=== PATIENT | female | born 1945 | race Caucasian/White ===

== ENCOUNTER → 2023-07-14 06:54 | Outpatient (REF) | payer MEDICARE, OTHER, SELFPAY | LOC: MRI 3T 06:54 | PROVIDERS: ATTENDING PHYSICIAN Orthopaedic Surgery; FAMILY PHYSICIAN Family Medicine | DX: M25.562 Pain in left knee (principal) | CPT/HCPCS: 73721 ==

== ENCOUNTER 2023-09-25 02:51 | Emergency (ER) | payer MEDICARE, OTHER, SELFPAY ==
[2023-09-25 02:59] VITALS: BP 135/87
[2023-09-25] MEDS: OMNIPAQUE 50 ML PO (03:50)
[2023-09-25 03:51] LABS: % Basophils 0.3 % (0-2); % Eosinophils 0.5 % (0-6); % Immature Granulocytes 0.3 % (0-0.5); % Lymphocytes 16.4 % (20.5-51.1); % Monocytes 5.9 % (1.7-9.3); % Neutrophils 76.6 % (42.2-75.2); Absolute Eosinophils 0.1 10^3/uL (0-0.7); Absolute Lymphocytes 1.6 10^3/uL (1.2-3.4); Absolute Monocytes 0.6 10^3/uL (0.1-0.6); Absolute Neutrophils 7.6 10^3/uL (1.4-6.5); Hematocrit 40.6 % (37.0-47.0); Hemoglobin 14.1 g/dL (12.0-16.0); Mean Corp Hgb Conc. 34.7 g/dL (33.0-37.0); Mean Corpuscular Volume 89.2 fL (81.0-99.0); Mean Platelet Volume 10.3 fL (7.4-10.4); Nucleated Red Blood Cells % 0 %; Platelet Count 289 10^3/uL (130-400); Red Blood Cell Count 4.55 10^6/uL (4.20-5.40); White Blood Cell Count 9.9 10^3/uL (4.8-10.8)
[2023-09-25 04:25] LABS: ALT (SGPT) 23 U/L (0-35); AST (SGOT) 28 U/L (14-36); Albumin 4.2 g/dl (3.5-5.0); Alkaline Phosphatase 62 U/L (38-126); Blood Urea Nitrogen 20 mg/dl (7-17); Calcium 9.4 mg/dl (8.4-10.2); Carbon Dioxide 21 mmol/L (22-30); Chloride 107 mmol/L (98-107); Glucose 121 mg/dl (70-99); Potassium 4.5 mmol/L (3.5-5.1); Sodium 137 mmol/L (135-145); Total Bilirubin 0.5 mg/dl (0.2-1.3); Total Protein 6.8 g/dl (6.3-8.2); eGFR > 60.00
[2023-09-25 05:43] LABS: Urine Albumin Negative (Neg - Trace); Urine Bilirubin Negative (Negative); Urine Character Clear (Clear); Urine Color Straw; Urine Glucose Negative (Negative); Urine Ketone Negative (Negative); Urine Leukocyte 1+ (Negative); Urine Nitrite Negative (Negative); Urine Occult Blood Negative (Negative); Urine Specific Gravity 1.005 (<1.030); Urine Urobilinogen Negative (Neg - 1+); Urine pH 6.5 (5.0-9.0)
[2023-09-25 05:49] VITALS: BP 142/78
[2023-09-25 05:55] LABS: Urine Bacteria Few (Negative)
--- NOTE | 2023-09-25 05:58 | ED.GENMED ---
History of Present Illness
General
Chief Complaint: Abdominal Pain
Time Seen by Provider: 09/25/23 05:58
Travel History
Have you had any contact with someone who has COVID-19?: No
Do you have any symptoms of coronavirus? Fever > 100 degrees, chills, cough, shortness of breath, sore throat, loss of taste or smell, muscle aches, or headache?: No
History of Present Illness
History of Present Illness:
HPI: Patient presents with right-sided abdominal pain that is relatively chronic but worsened acutely. This is associated with nausea and some diarrhea. Earlier, she had associated headache. She was concerned that this could be related to her
ileum however she cannot clearly tell me why she thinks this. In the past, Dr. Grissom diagnosed her with exocrine pancreatic insufficiency however another GI doctor said that she does not have this. She used to be on Creon. She has chronic diarrhea
and chronic pain at times acutely worsens. Currently she overall feels improved compared to earlier today.
EXAM:
GENERAL: Well appearing in no distress
HEENT: Moist oral mucosa
CARDIOVASCULAR: No murmurs, normal heart rate, regular rhythm, No chest wall tenderness
PULMONARY: No respiratory distress, breath sounds are clear and equal
ABDOMEN: Soft with no peritoneal signs, very mild right-sided abdominal tenderness
NEUROLOGIC: Excellent strength all extremities, no coordination deficits
PSYCHIATRIC: Appropriate mental status, normal insight and judgement
EXTREMITIES: Nontender, no edema, moves all extremities equally
SKIN: No rash, no lesions
TIME OF INITIAL ENCOUNTER: 6 AM
NUMBER AND COMPLEXITY OF PROBLEMS ADDRESSED AT THE ENCOUNTER
� Chronic conditions affecting care: High blood pressure, thyroid disease, chronic abdominal pain with diarrhea
� Acute Exacerbation and/or Progression of Chronic Illness: This is an acute on chronic problem
� Differential Diagnosis includes: Appendicitis unlikely based on timing of symptoms, colitis, enteritis, doubt bowel obstruction
AMOUNT AND/OR COMPLEXITY OF DATA TO BE REVIEWED AND ANALYZED
� I performed an independent evaluation of and my interpretation is:
EKG:
CT: I personally viewed CT imaging and do see the left proximal ureteral stone. No other clear acute cause of her pain.
X-rays:
Laboratory Studies: White count 9.9, hemoglobin 14.1, chemistries unremarkable, no definite evidence of infection based on UA, CRP less than 5
Other:
� Review of other/old records: CT from December 2021 showed acute diverticulitis without abscess�patient states that this is not the same as prior
� Clinical information was obtained by an independent historian: Spoke to the at bedside
� Prescriptions/Medications Considered but not given:
� Further testing considered but not performed:
RISK OF COMPLICATIONS AND/OR MORBIDITY OR MORTALITY OF PATIENT MANAGEMENT
� Social determinants of health affecting care: Lives at home
� Discussion with other providers:
� Escalation of care including admission/observation vs risk of discharge considered: The patient already started drinking oral contrast prior to the arrival of my shift. Will obtain CT imaging for further evaluation. CT shows
no clear cause for her pain but it does incidentally show a 7 mm stone at the proximal left ureter�she will follow-up with Dr. Son. This does not appear to be the cause of her pain as she has no left-sided pain. She appears fairly comfortable
on reassessment at 7:57 AM. She is to follow-up with GI as well.
Past History
Past History
ED Past Medical History: HTN, Hypothyroidism and Other (Kidney stones)
ED Past Surgical History: Gynecological (Hysterectomy) and Urological (Kidney stone removal)
Social History
Tobacco: Non-smoker
Personal:
Living: with family
Employment: Retired
Family History
Family History: Other (Noncontributory)
Phy Exam
Physical Exam
Physical Exam:
See HPI
Course
Orders/Labs/Results
Orders:
Orders
09/25/23 03:43
CMP [Comprehensive Metabolic Panel] Urgent
Complete Blood Count/With Diff Urgent
09/25/23 03:48
C-Reactive Protein Urgent
Comment: ADD ON
Iohexol [Omnipaque] 50 ml .ROUTE .K-MED ONE
09/25/23 03:52
Iohexol [Omnipaque] See Protocol PO NOW STA
09/25/23 05:29
Urinalysis Reflex To Culture Urgent
Date Specimen was Collected: 09/25/23
Time Specimen was Collected: 05:28
Urine Microscopic Reflex Cult Urgent
Urine Culture Urgent
DIANNA Source: U
Specimen Description:
Date Specimen was Collected: 09/25/23
Time Specimen was Collected: 05:28
09/25/23 06:10
Iohexol [Omnipaque] See Protocol PO NOW STA
09/25/23 06:11
Add On- LAB Urgent
Tests Added?: cRP
CT Abd/pel W Iv And Oral Contr Urgent
Comment:
Reason For Exam: R side pain, diarrhea
0.9% Sodium Chloride 500 ml [Nss] 500 ml IV BOLUS
Abnormal Lab Results
09/25/23 09/25/23
03:43 05:29
Absolute Neuts (auto) 7.6 H 10^3/uL
(1.4-6.5)
Neutrophils % 76.6 H %
(42.2-75.2)
Lymphocytes % 16.4 L %
(20.5-51.1)
Carbon Dioxide 21 L mmol/L
(22-30)
BUN 20 H mg/dl
(7-17)
Glucose 121 H mg/dl
(70-99)
Leukocyte Esterase Rfl 1+ A
(Negative)
Urine RBC 3-6 A /HPF
(0-2)
Urine Bacteria (Reflex) Few A
(Negative)
09/25/23 03:43
09/25/23 03:43
Vital Signs
Initial and Last Documented VS:
Initial Vital Signs
Temp Pulse Resp BP Pulse Ox
98.7 F 101 22 135/87 97
09/25/23 02:59 09/25/23 02:59 09/25/23 02:59 09/25/23 02:59 09/25/23 02:59
Last Documented Vital Signs
Temp Pulse Resp BP Pulse Ox
98.7 F 87 16 142/78 98
09/25/23 02:59 09/25/23 05:49 09/25/23 05:49 09/25/23 05:49 09/25/23 05:49
*Critical Care Note
Total Time (30-74mins, 75-104mins- exclusive of procedures): Not Applicable
ED Attending Note
-
Portions of this chart may have been created with voice recognition software.� Occasional wrong word or��sound alike� substitutions may have occurred due to the inherent limitations of voice recognition software.
Discharge Plan
Departure
Patient Disposition: Home (Routine Discharge)
Date of Disposition: 09/25/23
Time of Disposition: 07:53
Patient with high blood pressure during this ER visit?: Yes
Discharge Problem:
Abdominal pain
Instructions: Abdominal Pain
Prescriptions:
No Action
levothyroxine 50 MCG tablet
50 mcg PO DAILY
lisinopril 10 MG tablet
20 mg PO DAILY
dicyclomine [Bentyl] 20 mg Tablet
20 mg PO QID
Referrals:
Leighton Son MD [Active] - Follow up in 2-3 days
Montana Graves MD [Family Provider] -
Activity Restrictions/Additional Instructions:
The cause of your pain is unclear. Your white blood cell count is normal. Your C-reactive protein is normal. The urinalysis does not show any clear sign of infection. Incidentally, a large 7 mm stone is noted to the proximal left ureter which is
partially obstructing. Follow-up with Dr. Son. Severe diverticular disease is noted in the sigmoid colon however there is no sign of diverticulitis. A 1.3 cm simple cyst is seen in the right ovary. Follow-up with your GI doctor. Return
here if worse.
Interventions
Interventions:
*Risk Screen - Suicide Last Done: 09/25/23 02:59
*General Assessment Last Done: 09/25/23 02:59
*Neglect/Abuse Screening Last Done: 09/25/23 02:59
ED- Fall Risk Assessment Last Done: 09/25/23 02:59
*ED COVID-19 Vaccine History Last Done: 09/25/23 02:59
BJ-Lozhek-Ycszadquhh Assessment Last Done: 09/25/23 05:23
Discharge Date and Time
Print Language: GUINEAN
[2023-09-25] MEDS: NSS 500 IV (07:06)
[2023-09-25 07:16] LABS: C-Reactive Protein < 5.00 mg/L (0.0-10.00)
== END 2023-09-25 08:06 | disposition home or self-care (01) ==
LOC: EMR 02:51
PROVIDERS: Emergency Medicine; EMERGENCY PHYSICIAN Emergency Medicine; FAMILY PHYSICIAN Family Medicine
DX: R10.9 Unspecified abdominal pain (principal); R51.9 Headache, unspecified; I10 Essential (primary) hypertension; E03.9 Hypothyroidism, unspecified; Z87.442 Personal history of urinary calculi; Z90.710 Acquired absence of both cervix and uterus; Z90.721 Acquired absence of ovaries, unilateral
CPT/HCPCS: 99284; 74177; 80053; 81003; 81015; 85025; 86140; 87086; Q9967

== ENCOUNTER 2023-10-06 18:42 | Emergency (ER) | payer MEDICARE, OTHER, SELFPAY ==
[2023-10-06 18:45] VITALS: BP 134/92
--- NOTE | 2023-10-06 19:18 | ED.GENMED ---
History of Present Illness
General
Chief Complaint: Flank Pain
Time Seen by Provider: 10/06/23 19:17
Travel History
Have you had any contact with someone who has COVID-19?: No
Do you have any symptoms of coronavirus? Fever > 100 degrees, chills, cough, shortness of breath, sore throat, loss of taste or smell, muscle aches, or headache?: No
History of Present Illness
History of Present Illness:
HPI: I saw this patient 11 days ago, at that time the patient had right-sided abdominal pain. Today she started having left-sided flank pain, headache, and nausea. She states that after she saw Dr. Son the day I saw her, she was instructed to
go to the ER if she has severe pain. She also spoke to her primary care doctor today because she apparently had some indication from her Fitbit stating that she was in an irregular rhythm.
EXAM:
GENERAL: Appears uncomfortable
HEENT: Moist oral mucosa
CARDIOVASCULAR: No murmurs, normal heart rate, regular rhythm, No chest wall tenderness
PULMONARY: No respiratory distress, breath sounds are clear and equal
ABDOMEN: Soft with no peritoneal signs, no tenderness, moderate left CVA tenderness
NEUROLOGIC: Excellent strength all extremities, no coordination deficits
PSYCHIATRIC: Appropriate mental status, normal insight and judgement
EXTREMITIES: Nontender, no edema, moves all extremities equally
SKIN: No rash, no lesions
TIME OF INITIAL ENCOUNTER: 7:30 PM
NUMBER AND COMPLEXITY OF PROBLEMS ADDRESSED AT THE ENCOUNTER
� Chronic conditions affecting care: High blood pressure, kidney stones, thyroid disease
� Acute Exacerbation and/or Progression of Chronic Illness: This is an acute but recurring problem
� Differential Diagnosis includes: Ureteral stone, UTI, diverticulitis unlikely
AMOUNT AND/OR COMPLEXITY OF DATA TO BE REVIEWED AND ANALYZED
� I performed an independent evaluation of and my interpretation is:
EKG: Sinus 87, leftward axis deviation, no acute ST abnormality
CT:
X-rays:
Laboratory Studies: White count normal, chemistries unremarkable, trace blood noted on urinalysis with 2+ leukocyte esterase but 6-10 white cells
Other:
� Review of other/old records: I reviewed records, the patient is found to have a 6.8 mm proximal left ureter stone 11 days ago
� Clinical information was obtained by an independent historian: Spoke to at bedside
� Prescriptions/Medications Considered but not given: She was already given Dr. Son
� Further testing considered but not performed:
RISK OF COMPLICATIONS AND/OR MORBIDITY OR MORTALITY OF PATIENT MANAGEMENT
� Social determinants of health affecting care: Lives at home.
� Discussion with other providers: Notified Dr. Gandhi upon patient arrival at 7:30 PM�he recommends against further imaging. Patient is markedly improved he will see the patient tomorrow morning and arrange outpatient OR.
� Escalation of care including admission/observation vs risk of discharge considered: The patient appears somewhat uncomfortable�will give fluids, Zofran which Toradol and reassess. On reassessment at 10 PM, the patient is
markedly improved. She feels very comfortable going home.
Past History
Past History
ED Past Medical History: HTN, Hypothyroidism and Other (Kidney stones)
ED Past Surgical History: Gynecological (Hysterectomy) and Urological (Kidney stone removal)
Social History
Tobacco: Non-smoker
Personal:
Living: with family
Employment: Retired
Family History
Family History: Other (Noncontributory)
Phy Exam
Physical Exam
Physical Exam:
See HPI
Course
Orders/Labs/Results
Orders:
Orders
10/06/23 19:31
0.9% Sodium Chloride 1000 ml [Nss] 1,000 ml IV BOLUS
Ketorolac [Toradol] 15 mg IV NOW STA
Ondansetron HCl [Zofran] 4 mg PO NOW STA
10/06/23 19:55
Electrocardiogram (*1) Urgent
Reason for Study: Palpitations
EKG- Treatment ONCE
10/06/23 21:03
Complete Blood Count/With Diff Urgent
Comprehensive Metabolic Panel Urgent
Lipase Urgent
Urinalysis Reflex To Culture Urgent
Date Specimen was Collected: 10/06/23
Time Specimen was Collected: 20:38
Urine Microscopic Reflex Cult Urgent
Urine Culture Urgent
DIANNA Source: U
Specimen Description:
Date Specimen was Collected: 10/06/23
Time Specimen was Collected: 20:38
Abnormal Lab Results
10/06/23
21:03
MCH 31.3 H pg
(27.0-31.0)
Absolute Monos (auto) 0.7 H 10^3/uL
(0.1-0.6)
Glucose 109 H mg/dl
(70-99)
Urine Ketones 1+ A
(Negative)
Ur Occult Blood Reflex Trace A
(Negative)
Leukocyte Esterase Rfl 2+ A
(Negative)
10/06/23 21:03
10/06/23 21:03
Vital Signs
Initial and Last Documented VS:
Initial Vital Signs
Temp Pulse Resp BP Pulse Ox
98.1 F 112 18 134/92 99
10/06/23 18:45 10/06/23 18:45 10/06/23 18:45 10/06/23 18:45 10/06/23 18:45
Last Documented Vital Signs
Temp Pulse Resp BP Pulse Ox
98.1 F 112 18 134/92 97
10/06/23 18:45 10/06/23 18:45 10/06/23 18:45 10/06/23 18:45 10/06/23 21:21
*Critical Care Note
Total Time (30-74mins, 75-104mins- exclusive of procedures): Not Applicable
ED Attending Note
-
Portions of this chart may have been created with voice recognition software.� Occasional wrong word or��sound alike� substitutions may have occurred due to the inherent limitations of voice recognition software.
Discharge Plan
Departure
Patient Disposition: Home (Routine Discharge)
Date of Disposition: 10/06/23
Time of Disposition: 22:12
Patient with high blood pressure during this ER visit?: Yes
Discharge Problem:
Left ureteral stone
Instructions: Kidney Stones (DC), BLOOD PRESSURE
Prescriptions:
New
ondansetron HCl 4 mg tablet
4 mg PO Q8H PRN (Reason: nausea and vomiting) Qty: 14 0RF
No Action
levothyroxine 50 MCG tablet
50 mcg PO DAILY
lisinopril 10 MG tablet
20 mg PO DAILY
dicyclomine [Bentyl] 20 mg Tablet
20 mg PO QID
Referrals:
Montana Graves MD [Family Provider] -
Bishop Gandhi Jr., MD [Active] - Follow up in 2-3 days
Activity Restrictions/Additional Instructions:
I messaged Dr. Stringer several times tonight. He would like you to go to his office at 8:[address] Gandhi will see you then. They will see if they can put you on the schedule for in the OR. I recommend 3-4 [id number]-tytfgbu
ibuprofen (Motrin) every 8 hours with food for a few days in addition to the narcotic pain medication and Flomax. Return here if worse.
Interventions
Interventions:
*Risk Screen - Suicide Last Done: 10/06/23 18:45
*General Assessment Last Done: 10/06/23 18:45
*Neglect/Abuse Screening Last Done: 10/06/23 18:45
ED- Fall Risk Assessment Last Done: 10/06/23 21:21
*ED COVID-19 Vaccine History Last Done: 10/06/23 21:21
KQ-Lpqpci-Kvjbcqnqvg Assessment Last Done: 10/06/23 21:21
ED-Female Genitourinary Assessment Last Done: 10/06/23 21:21
Discharge Date and Time
Print Language: CHINESE
[2023-10-06] MEDS: ZOFRAN 4 MG PO (21:08)
[2023-10-06] MEDS: TORADOL 15 MG IV (21:08)
[2023-10-06] MEDS: NSS 1000 IV (21:08)
[2023-10-06 21:15] LABS: Urine Albumin Negative (Neg - Trace); Urine Bilirubin Negative (Negative); Urine Character Clear (Clear); Urine Color Yellow; Urine Glucose Negative (Negative); Urine Ketone 1+ (Negative); Urine Leukocyte 2+ (Negative); Urine Nitrite Negative (Negative); Urine Occult Blood Trace (Negative); Urine Specific Gravity 1.015 (<1.030); Urine Urobilinogen Negative (Neg - 1+)
[2023-10-06 21:16] LABS: % Basophils 0.5 % (0-2); % Eosinophils 1.4 % (0-6); % Immature Granulocytes 0.3 % (0-0.5); % Lymphocytes 29.6 % (20.5-51.1); % Monocytes 8.6 % (1.7-9.3); % Neutrophils 59.6 % (42.2-75.2); Absolute Eosinophils 0.1 10^3/uL (0-0.7); Absolute Lymphocytes 2.4 10^3/uL (1.2-3.4); Absolute Monocytes 0.7 10^3/uL (0.1-0.6); Absolute Neutrophils 4.7 10^3/uL (1.4-6.5); Hematocrit 39.9 % (37.0-47.0); Mean Corp Hgb Conc. 35.1 g/dL (33.0-37.0); Mean Corpuscular Hgb 31.3 pg (27.0-31.0); Mean Corpuscular Volume 89.3 fL (81.0-99.0); Mean Platelet Volume 10.3 fL (7.4-10.4); Nucleated Red Blood Cells % 0 %; Platelet Count 282 10^3/uL (130-400); Red Blood Cell Count 4.47 10^6/uL (4.20-5.40); Red Cell Dist. Width 12.8 % (11.5-14.5); White Blood Cell Count 7.9 10^3/uL (4.8-10.8)
[2023-10-06 21:21] VITALS: BMI 24.9
[2023-10-06 21:42] LABS: ALT (SGPT) 21 U/L (0-35); AST (SGOT) 28 U/L (14-36); Albumin 4.1 g/dl (3.5-5.0); Alkaline Phosphatase 66 U/L (38-126); Blood Urea Nitrogen 13 mg/dl (7-17); Calcium 9.3 mg/dl (8.4-10.2); Carbon Dioxide 24 mmol/L (22-30); Chloride 105 mmol/L (98-107); Estimated Creatinine Clearance 50 ml/min; Glucose 109 mg/dl (70-99); Lipase 60 U/L (23-300); Potassium 4.2 mmol/L (3.5-5.1); Sodium 137 mmol/L (135-145); Total Bilirubin 0.5 mg/dl (0.2-1.3); Total Protein 6.7 g/dl (6.3-8.2); eGFR > 60.00
[2023-10-06 21:43] LABS: Urine Calcium Oxalate Crystals Present; Urine Red Blood Cell 0-2 /HPF (0-2); Urine Squamous Cell 0-2 /LPF (Few)
== END 2023-10-06 23:11 | disposition home or self-care (01) ==
LOC: EMR 18:42
PROVIDERS: EMERGENCY PHYSICIAN Emergency Medicine; FAMILY PHYSICIAN Family Medicine
DX: N20.1 Calculus of ureter (principal); I10 Essential (primary) hypertension
CPT/HCPCS: 99284; 96374; 96361; 80053; 81003; 81015; 83690; 85025; 87086; 93005

== ENCOUNTER 2023-10-09 06:12 | Day surgery (SDC) | payer MEDICARE, OTHER, SELFPAY ==
[2023-10-09] VITALS (7 sets, daily range): BP systolic 110–157; BP diastolic 36–98; BMI 26.0
[2023-10-09] MEDS: NORMOSOL-R 1000 IV (06:32)
[2023-10-09] MEDS: Pyridium 200 MG PO (09:00)
== END 2023-10-09 10:00 | disposition home or self-care (01) ==
LOC: SDS 06:12
PROVIDERS: ATTENDING PHYSICIAN Specialist
DX: N20.2 Calculus of kidney with calculus of ureter (principal)
CPT/HCPCS: 52356; 74018; 76000; 82365; A4300; C1894; C2617

== ENCOUNTER 2023-10-12 14:02 | Inpatient (IN) | payer MEDICARE, OTHER, SELFPAY ==
[2023-10-12] VITALS (8 sets, daily range): BP systolic 108–182; BP diastolic 50–94; BMI 26.1; BMI 26.0
--- NOTE | 2023-10-12 11:16 | ED.GENMED ---
History of Present Illness
General
Chief Complaint: Post Operative Problem(s)
Source: patient and spouse
Exam Limitations: none
Time Seen by Provider: 10/12/23 11:04
Nursing documentation reviewed up to this point in time: agreed with
History of Present Illness
History of Present Illness:
The patient is a 77-year-old female who comes in with complaints of severe left flank pain, nausea, vomiting and chills since this morning. Patient underwent lithotripsy and a left renal stent placed by Dr. Son 3 days ago, on 10/09/2023.
Patient reports that she felt tired and nauseous yesterday but symptoms became intense this morning. Patient appears very anxious and uncomfortable.
Past History
Past History
ED Past Medical History: HTN, Hypothyroidism and Other (Kidney stones)
ED Past Surgical History: Gynecological (Hysterectomy) and Urological (Kidney stone removal)
Social History
Tobacco: Non-smoker
Alcohol: Other
Drug: None
Personal:
Living: with family
Employment: Retired
Family History
Family History: Other (Noncontributory)
Review of Systems
Review of Systems
Allergies reviewed?: Yes
All Other Systems: ROS reviewed and negative except as documented in HPI and ROS
Constitutional: Reports chills
EENT: Reports no symptoms
Respiratory: Reports no symptoms
Cardiac: Reports no symptoms
ABD/GI: Reports nausea, vomiting and anorexia
: Reports flank pain
Musculoskeletal: Reports no symptoms
Skin: Reports no symptoms
Neurological: Reports no symptoms
Endocrine: Reports no symptoms
Hematologic/Lymphatic: Reports no symptoms
Psychiatric: Reports no symptoms
Phy Exam
Physical Exam
Physical Exam:
Physical Exam
General: Patient appears very anxious and uncomfortable, is moving around bed, restless
Neck: supple. no meningeal signs. normal psoterior pharynx
Heart: s1/s2 regular rate and rhythm, no murmur. equal radial pulses.
Lungs: no acute respiratory distress. clear bilaterally
Abdomen: Diffuse abdominal pain. Left flank pain. Abdomen is soft and nondistended. No pulsatile mass
Neuro: alert and oriented. no focal neurological deficits
Skin: no rash
Psychiatric: well kept. interactive and cooperative
Extremities: no edema. no calf tenderness. negative homans. good distal pulses
Course
Orders/Labs/Results
Orders:
Orders
10/12/23 11:20
Complete Blood Count/With Diff Urgent
Comprehensive Metabolic Panel Urgent
Lactic Acid Q4H
Comment: ON ICE, CANCEL 2ND ORDER IF FIRST LACTIC ACID LEVEL <2
Blood Culture Q30M
DIANNA Source: Blood/Venous
Specimen Description:
Comment: FROM 2 SEPARATE SITES
Morphine Sulfate 4 mg .ROUTE .STK-MED ONE
Morphine Sulfate 4 mg IV NOW STA
Ondansetron Injectable [Zofran] 4 mg .ROUTE .STK-MED ONE
Ondansetron Injectable [Zofran] 4 mg IV NOW STA
10/12/23 11:21
0.9% Sodium Chloride 1000 ml [Nss] 1,000 ml IV BOLUS
10/12/23 11:56
CT Abd/pel Without Iv Or Oral Urgent
Comment:
Reason For Exam: L flank pain, chills after stent placed
10/12/23 12:11
HYDROmorphone [Dilaudid] 0.5 mg IV NOW STA
10/12/23 12:43
Blood Culture Q30M
DIANNA Source: Blood/Venous
Specimen Description:
Comment: FROM 2 SEPARATE SITES
10/12/23 13:23
Urinalysis Reflex To Culture Urgent
Date Specimen was Collected: 10/12/23
Time Specimen was Collected: 11:14
10/12/23 13:24
CefTRIAXone [Rocephin] 1,000 mg IV NOW STA
Vancomycin [Vancocin] 1,500 mg 0.9% Sodium Chloride [Nss] 20 ml 0.9% Sodium Chloride 250 ml [Nss] 250 ml IV NOW
10/12/23 15:15
Lactic Acid Q4H
Comment: ON ICE, CANCEL 2ND ORDER IF FIRST LACTIC ACID LEVEL <2
Abnormal Lab Results
10/12/23
11:20
WBC 13.8 H 10^3/uL
(4.8-10.8)
MCH 31.3 H pg
(27.0-31.0)
Abs Immat Gran (auto) 0.1 H 10^3/uL
(0-0.05)
Absolute Neuts (auto) 9.3 H 10^3/uL
(1.4-6.5)
Absolute Monos (auto) 1.1 H 10^3/uL
(0.1-0.6)
Glucose 137 H mg/dl
(70-99)
Lactic Acid 2.7 H mmol/L
(0.7-2.0)
10/12/23 11:20
10/12/23 11:20
Vital Signs
Initial and Last Documented VS:
Initial Vital Signs
Temp Pulse Resp BP Pulse Ox
97.8 F 90 20 137/90 98
10/12/23 10:55 10/12/23 10:55 10/12/23 10:55 10/12/23 10:55 10/12/23 10:55
Last Documented Vital Signs
Temp Pulse Resp BP Pulse Ox
97.8 F 74 16 182/94 99
10/12/23 10:55 10/12/23 12:15 10/12/23 12:15 10/12/23 12:00 10/12/23 12:15
MDM/Problems Addressed
Differential Diagnosis Includes:
Left hydronephrosis, pyelonephritis, sepsis
MDM/Problems Addressed:
Patient presents with acute left flank pain, chills, nausea and vomiting after urological procedure
Chronic conditions affecting care:
History of kidney stones
Acute Exacerbation and/or Progression of Chronic Illness:
Patient is acutely hypertensive likely due to pain and anxiety
Acute Exacerbation and/or Progression of Chronic Illness: HTN
*Radiology
Radiology exam reviewed: radiology read reviewed
*Pulse Oximetry
Patient hypoxic: no
*EKG
Interpreted by ED Provider?: NA
*Contract Administration Specialist Interpretation
Rate: normal
Interpretation: normal
Rhythm: sinus
*Critical Care Note
Total Time (30-74mins, 75-104mins- exclusive of procedures): Not Applicable
Data Reviewed
Review of Other/Old Records Reveals: Operative Reports (Operative report reviewed from 10/09/[address] Son when patient had a lithotripsy done as well as a stent placed)
Source: patient
Patient Management
Discussion with other providers: Hospitalist and Other (Spoke to urology, Dr. Gardner who recommended admission to the hospital with wide spectrum antibiotics)
ED Attending Note
-
Portions of this chart may have been created with voice recognition software.� Occasional wrong word or��sound alike� substitutions may have occurred due to the inherent limitations of voice recognition software.
Discharge Plan
Departure
Patient Disposition: Admit
Date of Disposition: 10/12/23
Time of Disposition: 13:24
Admit to: Med/Surg
Presentation/result/management discussed w/ accepting MD/DO: Hospitalist
Patient with high blood pressure during this ER visit?: Yes
Condition: Good
Covid-19: Not Applicable
Discharge Problem:
Postoperative pain, Intractable vomiting
Prescriptions:
No Action
levothyroxine 50 MCG tablet
75 mcg PO DAILY
lisinopril 10 MG tablet
20 mg PO DAILY
dicyclomine [Bentyl] 20 mg Tablet
20 mg PO QID
ondansetron HCl 4 mg tablet
4 mg PO Q8H PRN (Reason: nausea and vomiting) Qty: 14 0RF
Prolia 60 mg/mL Syringe
60 mg SC [id number]
citalopram 10 mg Tablet
10 mg PO DAILY
tamsulosin 0.4 mg Capsule
0.4 mg PO DAILY
Vitamin D3
1,000 mcg PO DAILY
Referrals:
Montana Graves MD [Family Provider] -
Interventions
Interventions:
*Risk Screen - Suicide Last Done: 10/12/23 12:20
*General Assessment Last Done: 10/12/23 12:20
*Neglect/Abuse Screening Last Done: 10/12/23 12:20
ED- Fall Risk Assessment Last Done: 10/12/23 11:34
*ED COVID-19 Vaccine History Last Done: 10/12/23 12:20
ED-Skin Assessment Last Done: 10/12/23 11:34
Discharge Date and Time
Print Language: VINCENTIAN
[2023-10-12] MEDS: ZOFRAN 4 MG IV (11:23)
[2023-10-12] MEDS: MORPHINE SULFATE 4 MG IV (11:23)
[2023-10-12] MEDS: NSS 1000 IV ×2 (11:27→15:40)
[2023-10-12 11:42] LABS: Lactic Acid 2.7 mmol/L (0.7-2.0)
[2023-10-12 11:46] LABS: % Basophils 0.2 % (0-2); % Eosinophils 0.5 % (0-6); % Immature Granulocytes 0.4 % (0-0.5); % Lymphocytes 23.5 % (20.5-51.1); % Monocytes 7.7 % (1.7-9.3); % Neutrophils 67.7 % (42.2-75.2); ALT (SGPT) 24 U/L (0-35); AST (SGOT) 33 U/L (14-36); Absolute Eosinophils 0.1 10^3/uL (0-0.7); Absolute Immature Granulocytes 0.1 10^3/uL (0-0.05); Absolute Lymphocytes 3.2 10^3/uL (1.2-3.4); Absolute Monocytes 1.1 10^3/uL (0.1-0.6); Absolute Neutrophils 9.3 10^3/uL (1.4-6.5); Albumin 4.4 g/dl (3.5-5.0); Alkaline Phosphatase 76 U/L (38-126); Blood Urea Nitrogen 15 mg/dl (7-17); Calcium 9.6 mg/dl (8.4-10.2); Carbon Dioxide 24 mmol/L (22-30); Chloride 102 mmol/L (98-107); Glucose 137 mg/dl (70-99); Hematocrit 42.8 % (37.0-47.0); Hemoglobin 14.9 g/dL (12.0-16.0); Mean Corp Hgb Conc. 34.8 g/dL (33.0-37.0); Mean Corpuscular Hgb 31.3 pg (27.0-31.0); Mean Corpuscular Volume 89.9 fL (81.0-99.0); Mean Platelet Volume 10.4 fL (7.4-10.4); Nucleated Red Blood Cells % 0 %; Platelet Count 356 10^3/uL (130-400); Potassium 4.4 mmol/L (3.5-5.1); Red Blood Cell Count 4.76 10^6/uL (4.20-5.40); Red Cell Dist. Width 12.9 % (11.5-14.5); Sodium 137 mmol/L (135-145); Total Bilirubin 0.8 mg/dl (0.2-1.3); Total Protein 7.1 g/dl (6.3-8.2); White Blood Cell Count 13.8 10^3/uL (4.8-10.8); eGFR > 60.00
[2023-10-12] MEDS: DILAUDID 0.5 MG IV (12:14)
--- NOTE | 2023-10-12 13:04 | CONS.URO ---
Consultation
-
Performing Provider: Peffer
Reason for Consultation: Flank pain, nausea/vomiting
Medical History
History of Present Illness
77[address] Son with L ureteral and renal stones
s/p L ureteroscopy, laser lithotripsy, stent placement 09/2023
Presenting with abdominal/flank pain, nausea and vomiting unable to tolerate PO intake, chills without measured fevers
Past Medical History
Past Medical History: Other (HTN, Hypothyroidism, kidney stones)
Past Surgical History: Urological (ureteroscopy)
Social History
Tobacco: Non-smoker
Personal:
Living: With Family
Family History
Family History: Reviewed & Not Pertinent
Allergies/Home Medications
Allergies
Allergy/AdvReac Type Severity Reaction Status Date / Time
NKA - No Known Allergies Allergy Unknown Uncoded 10/12/23 10:55
Home Medications
�Medication �Instructions �Recorded �Confirmed �Type
levothyroxine 50 mcg tablet 75 mcg PO DAILY 12/25/10 10/09/23 History
lisinopril 10 mg tablet 20 mg PO DAILY 12/25/10 10/09/23 History
dicyclomine 20 mg tablet 20 mg PO QID 09/25/23 10/09/23 History
ondansetron HCl 4 mg tablet 4 mg PO Q8H PRN nausea and 10/06/23 10/09/23 Rx
vomiting #14 tabs
denosumab 60 mg/mL subcutaneous 60 mg SC [id number] 10/07/23 10/09/23 History
syringe (Prolia)
Vitamin D3 1,000 mcg PO DAILY 10/09/23 History
citalopram 10 mg tablet 10 mg PO DAILY 10/09/23 10/09/23 History
tamsulosin 0.4 mg capsule 0.4 mg PO DAILY 10/09/23 10/09/23 History
Physical Exam
Vital Signs
Vital Signs
Temp Pulse Resp BP Pulse Ox
97.8 F 74 16 182/94 99
10/12/23 10:55 10/12/23 12:15 10/12/23 12:15 10/12/23 12:00 10/12/23 12:15
Lab / Testing Results
Laboratory Results
10/12/23 11:20
10/12/23 11:20
Physical Exam
General: Well Developed, Well Nourished and No Apparent Distress
Respiratory: Clear
GI: Soft and Non Tender
Genito-urinary: Costovertebral Angle Tend
Skin: Warm and Dry
Neuro: AO x 3
Psych: Calm and Intact Judgement
Assessment / Plan
-
77F with L ureteral and renal stones s/p ureteroscopy and stent placement 10/08
Presenting with nausea/vomiting, pain, and chills
Lactid acidosis and mild leukocytosis consistent with developing infection/sepsis
- CT shows stent in good position without hydronephrosis. No surgical intervention needed
- Urinalysis and labs pending
- Urine culture
- Recommend starting broad spectrum abx pending cultures
Data Reviewed
-
CT Scan: Image personally visualized and interpreted and Discussed with Family
Lab Data: Labs Reviewed
--- NOTE | 2023-10-12 13:33 | HPS.HSE ---
Addendum entered and electronically signed by Kenyon Avila MD 10/12/23 17:41:
Nausea better and urology not planning procedure so will start Clear liquid diet and advance as tolerated.
Original Note:
Family Physician
-
Family Physician: Montana Graves
Chief Complaint
-
Nausea and vomiting
History of Present Illness
Patient is 77 years old female with history hypertension, nephrolithiasis, hypothyroidism, recent left lower endoscopy with lithotripsy and stent placement by urologist on 10/08, came back to the hospital with nausea vomiting and chills. Patient did
well postprocedure up until Friday when she started not feeling well. She complained of left flank pain, moderate intensity, intermittent in nature, increasing in frequency and intensity associated with nausea vomiting and chills. She denies
dysuria or hematuria. She denies chest pain or shortness of breath. She denies cough. Denies any rash. In the ER, white blood cell count 13.8, creatinine 0.9, lactic acid 2.7. CT scan of the abdomen done but pending report. Urology consulted.
She was referred to hospitalist for further evaluation.
Medical History
Past Medical History
Past Medical History: Reports Other (Hypertension, nephrolithiasis, hypothyroidism)
Past Surgical History: Reports Other (Uteroscopy and recent left ureteral stent)
Social History
Tobacco: Non-smoker
Alcohol: None
Drug: None
Family History
Family History: Not pertinent
Allergies / Home Medications
Allergies reflects when Allergies were last updated in [facility].
Home Medications with original date entered in [facility]
Allergy/Medication List:
Allergies
Allergy/AdvReac Type Severity Reaction Status Date / Time
NKA - No Known Allergies Allergy Unknown Uncoded 10/12/23 10:55
Home Medications
levothyroxine 50 mcg tablet 75 mcg PO DAILY 12/25/10
lisinopril 10 mg tablet 20 mg PO DAILY 12/25/10
dicyclomine 20 mg tablet 20 mg PO QID 09/25/23
ondansetron HCl 4 mg tablet 4 mg PO Q8H PRN nausea and vomiting #14 tabs 10/06/23
denosumab 60 mg/mL subcutaneous syringe (Prolia) 60 mg SC [id number] 10/07/23
Vitamin D3 1,000 mcg PO DAILY 10/09/23
citalopram 10 mg tablet 10 mg PO DAILY 10/09/23
tamsulosin 0.4 mg capsule 0.4 mg PO DAILY 10/09/23
Review of Systems
-
A 12 point ROS was completed and negative except as noted: Yes
Physical Exam
Vital Signs
Vital Signs
Temp Pulse Resp BP Pulse Ox
97.8 F 74 16 182/94 99
10/12/23 10:55 10/12/23 12:15 10/12/23 12:15 10/12/23 12:00 10/12/23 12:15
Physical exam:
General: Acutely ill
HEENT: Normocephalic, Atraumatic and Moist Mucous Membranes
Respiratory: Clear to Auscultation; Negative Wheezes, Rales or Rhonchi
Cardiac: Regular Rhythm and S1/S2
GI: Soft, Nontender and Nondistended
Musculoskeletal: No Clubbing, No Cyanosis and No Edema
Neuro: Awake, Alert and Oriented
Psych: Calm
Physical Exam
General: Other
Laboratory Results
-
10/12/23 11:20
10/12/23 11:20
Laboratory Results
Lactic Acid 2.7 mmol/L (0.7-2.0) H 10/12/23 11:20
Total Bilirubin 0.8 mg/dl (0.2-1.3) 10/12/23 11:20
AST 33 U/L (14-36) 10/12/23 11:20
ALT 24 U/L (0-35) 10/12/23 11:20
Alkaline Phosphatase 76 U/L (38-126) 10/12/23 11:20
Data Reviewed
-
CT Scan: Image Personally Visualized and interpreted
Lab Data: Labs Reviewed by me
Impression/Plan
-
IMPRESSION:
Patient 77 years old female with recent left ureteral stent few days ago admitted to the hospital with left flank abdominal pain associated with nausea and found to have leukocytosis, concerns for sepsis due to UTI related to recent urological
procedure. Patient at risk morbidity mortality therefore she will need to be here in the hospital for further evaluation.
PLAN:
Concerns for sepsis due to UTI:
IV fluid of normal saline.
IV antibiotic, IV Rocephin
Follow-up blood and urine cultures
Follow-up lactate
Urology consult
Follow-up definitive report of CT scan of the abdomen
Keep n.p.o. for now until urology clears her and she starts feeling better to tolerate oral intake as well.
Hypertension:
Will resume home antihypertensives.
Monitor blood pressure and adjust medications accordingly.
Will add IV hydralazine as needed since she is NPO.
Hypothyroidism:
Will resume her thyroid medications once we have accurate doses and not n.p.o. anymore.
Update TSH today
Hyperglycemia:
Likely reactive check hemoglobin A1c in a.m.
DVT prophylaxis:
SCDs
CODE STATUS:
Full code
Time spent 75 minutes
[2023-10-12] MEDS: ROCEPHIN 1000 MG IV (14:03)
[2023-10-12] MEDS: VANCOCIN 300 ML IV (14:03)
[2023-10-12] MEDS: VANCOCIN 300 MG IV (14:03)
[2023-10-12] MEDS: STERILE WATER FOR INJECTION 10 ML IV (14:03)
[2023-10-12 14:23] LABS: Urine Albumin Trace (Neg - Trace); Urine Bilirubin Negative (Negative); Urine Character Clear (Clear); Urine Color Yellow; Urine Glucose Negative (Negative); Urine Ketone 2+ (Negative); Urine Leukocyte Trace (Negative); Urine Nitrite Negative (Negative); Urine Occult Blood 3+ (Negative); Urine Urobilinogen Negative (Neg - 1+)
[2023-10-12 14:34] LABS: Urine Mucus Few; Urine Urothelial Cell 0-2 /LPF (FEW)
[2023-10-12 14:35] LABS: Urine Calcium Oxalate Crystals Present
[2023-10-12 14:36] LABS: Urine Bacteria Few (Negative); Urine Red Blood Cell 30-40 /HPF (0-2); Urine White Cell 16-20 /HPF (0-5)
[2023-10-12 15:44] LABS: Lactic Acid 0.6 mmol/L (0.7-2.0)
--- NOTE | 2023-10-12 23:29 | PTCARENOTE ---
Patient already in room and admit upon change of shift. Pleasant and cooperative with care. Denies pain or nausea at this time. Oriented to unit. Call dias with in reach. Family at bedside.
[2023-10-13] MEDS: NSS 1000 IV ×3 (02:35→20:26)
[2023-10-13 03:17] VITALS: BP 124/74
[2023-10-13 06:09] VITALS: BMI 26.3
[2023-10-13] MEDS: SYNTHROID 75 MCG PO (06:16)
[2023-10-13 07:06] LABS: % Basophils 0.4 % (0-2); % Eosinophils 1.4 % (0-6); % Immature Granulocytes 0.4 % (0-0.5); % Lymphocytes 26.7 % (20.5-51.1); % Monocytes 8.4 % (1.7-9.3); % Neutrophils 62.7 % (42.2-75.2); Absolute Eosinophils 0.1 10^3/uL (0-0.7); Absolute Lymphocytes 2.2 10^3/uL (1.2-3.4); Absolute Monocytes 0.7 10^3/uL (0.1-0.6); Absolute Neutrophils 5.1 10^3/uL (1.4-6.5); Hematocrit 39.4 % (37.0-47.0); Hemoglobin 12.6 g/dL (12.0-16.0); Mean Corpuscular Hgb 30.6 pg (27.0-31.0); Mean Corpuscular Volume 95.6 fL (81.0-99.0); Mean Platelet Volume 10.4 fL (7.4-10.4); Nucleated Red Blood Cells % 0 %; Platelet Count 271 10^3/uL (130-400); Red Blood Cell Count 4.12 10^6/uL (4.20-5.40); Red Cell Dist. Width 13.1 % (11.5-14.5); White Blood Cell Count 8.1 10^3/uL (4.8-10.8)
[2023-10-13 07:45] VITALS: BP 135/76
[2023-10-13 07:51] LABS: Blood Urea Nitrogen 11 mg/dl (7-17); Calcium 7.7 mg/dl (8.4-10.2); Carbon Dioxide 25 mmol/L (22-30); Chloride 109 mmol/L (98-107); Estimated Creatinine Clearance 57 ml/min; Glucose 85 mg/dl (70-99); Potassium 4.3 mmol/L (3.5-5.1); Sodium 138 mmol/L (135-145); eGFR > 60.00
[2023-10-13 08:08] LABS: TSH 0.62 uIU/ml (0.47-4.68)
[2023-10-13] MEDS: LIPITOR 20 MG PO (08:18)
[2023-10-13] MEDS: STERILE WATER FOR INJECTION 10 ML IV (08:18)
[2023-10-13] MEDS: ZESTRIL 20 MG PO (08:18)
[2023-10-13] MEDS: ROCEPHIN 1000 MG IV (08:18)
[2023-10-13] MEDS: BENTYL 20 MG PO (08:18)
[2023-10-13] MEDS: CELEXA 10 MG PO (08:18)
--- NOTE | 2023-10-13 08:37 | W.PN.URO.CBU ---
Today's Communication / Plan
-
Continue antibiotics
Assessment / Plan
-
77F with L ureteral and renal stones s/p ureteroscopy and stent placement 10/08
Presenting with nausea/vomiting, pain, and chills
Lactic acidosis and mild leukocytosis consistent with UTI/pyelonephritis
- CT shows stent in good position without hydronephrosis. No surgical intervention needed
- Urine culture pending
- Continue abx pending cultures
- Outpatient stent removal to be rescheduled
Diagnosis
-
Date of Service: October 13, 2023
-
Patient Diagnosis:
Pyelonephritis
kidney stone
Post Op Day:
Subjective
-
pain significantly improved
no fevers overnight
Objective
-
Vital Signs
Temp Pulse Resp BP Pulse Ox
98.4 F 72 18 135/76 96
10/13/23 07:45 10/13/23 07:45 10/13/23 07:45 10/13/23 07:45 10/13/23 07:45
Intake and Output
10/12/23 10/13/23 10/14/23
06:59 06:59 06:59
Intake Total 1680 / 1680
Balance 1680 / 1680
Intake:
Oral fluids 480 / 480
IV fluids (Total) 1200 / 1200
Other:
Number of approximated MODERATE 2
amounts of urine
Number of approximated LARGE 1
amounts of urine
Laboratory Results
10/13/23 06:23
10/13/23 06:23
Physical Exam
-
General - well developed, well nourished, no acute distress
Chest - clear
Abdomen - soft, non-tender
[2023-10-13 09:45] LABS: Glycohemoglobin (HgbA1c) 5.5 % (4.0-5.6)
--- NOTE | 2023-10-13 09:56 | W.PN.HOSP.TC ---
Today's Communication/Plan
-
.
Assessment / Plan
Assessment / Plan
Physical exam:
General:Not Acutely ill
HEENT: Normocephalic, Atraumatic and Moist Mucous Membranes
Respiratory: Clear to Auscultation; Negative Wheezes, Rales or Rhonchi
Cardiac: Regular Rhythm and S1/S2
GI: Soft, Nontender and Nondistended
: No Siegel, No CV tenderness
Musculoskeletal: No Clubbing, No Cyanosis and No Edema
Neuro: Awake, Alert and Oriented
Psych: Calm
Patient 77 years old female with recent left ureteral stent few days ago admitted to the hospital with left flank abdominal pain associated with nausea and found to have leukocytosis, concerns for sepsis due to UTI related to recent urological
procedure. Patient at risk morbidity mortality therefore she will need to be here in the hospital for further evaluation.
PLAN:
#Sepsis POA with leukocytosis, tachycardia and lactic acidosis due to UTI:
No CV tenderness
No fevers
HR is stable
She feels better
c/w IV fluid of normal saline and IV antibiotic, IV Rocephin
Follow-up blood and urine cultures
d/w urology, no need for intervention, reschedule stent removal
Appreciate urology help
# constipation
No abd pain or distension
will give Dulcolax
# Essential Hypertension:
Resume home antihypertensives.
No chest pain or sob
Monitor blood pressure and adjust medications accordingly.
#Hypothyroidism:
# Hyperglycemia:
Likely reactive check hemoglobin A1c in a.m.
DVT prophylaxis:
SCDs
CODE STATUS:
Full code
Total time spent to see the patient on the floor, examine the patient, review data and lab results, discuss treatment plan with patient, nursing staff around 55 minutes
Anticipated Discharge: 24 - 48 hours
Subjective/Interval History
-
Date of Service: October 13, 2023
No chest pain
No sob
Objective Data
-
Labs:
Laboratory Results
10/13/23
06:23
WBC 8.1
Hgb 12.6
Hct 39.4
Plt Count 271 D
Sodium 138
Potassium 4.3
Chloride 109 H
Carbon Dioxide 25
BUN 11
Creatinine 0.7
Glucose 85
Calcium 7.7 L D
Vital Signs:
Vital Signs
Temp Pulse Resp BP Pulse Ox
98.4 F 72 18 135/76 96
10/13/23 07:45 10/13/23 07:45 10/13/23 07:45 10/13/23 07:45 10/13/23 07:45
I&O
10/12/23 10/13/23 10/14/23
06:59 06:59 06:59
Intake Total 1680 / 1680
Balance 1680 / 1680
[2023-10-13] MEDS: DULCOLAX 10 MG PO (10:02)
[2023-10-13 10:50] VITALS: BP 153/63
[2023-10-13] MEDS: ZOFRAN 4 MG IV (10:51)
[2023-10-13] MEDS: MORPHINE SULFATE 2 MG IV (10:53)
--- NOTE | 2023-10-13 11:34 | CM ---
Cm met with pt bedside
Pt resides with her ex- Arthur (goes by [facility])
They split time between her house on [address] ([address]) and his house on [email or web address] ([address])
They spend more time at Luis Manuel's home which is [address] with [address], full flight to second floor
Pt notes independence with her ADLs, drives infrequently
Pt denies use of DMEs
PCP- Pam Graves
Rx- Edward Husain
Pt notes independence throughout room
Does not anticipate dc needs
Discharge Disposition- home, no needs anticipate- family transport
[2023-10-13 15:10] VITALS: BP 157/82
[2023-10-13 19:00] VITALS: BP 144/80
[2023-10-13 23:00] VITALS: BP 128/68
[2023-10-14] VITALS: BP 128/68
[2023-10-14 03:00] VITALS: BP 146/75
[2023-10-14 06:00] VITALS: BMI 26.3
[2023-10-14] MEDS: SYNTHROID 75 MCG PO (06:17)
[2023-10-14] MEDS: NSS 1000 IV (06:19)
[2023-10-14 07:15] VITALS: BP 140/71
[2023-10-14] MEDS: ZOFRAN 4 MG IV (07:31)
[2023-10-14] MEDS: MORPHINE SULFATE 2 MG IV (07:31)
--- NOTE | 2023-10-14 08:44 | W.PN.HOSP.TC ---
Addendum entered and electronically signed by Allyn Ramos MD 10/14/23 16:21:
Addendum
Patient was seen by urology. Okay for discharge
Patient reported that she wanted to go home and her pain was not significant.
She finished course of 3 days of IV antibiotic, discharged to finish course of 7 days on oral cefdinir.
Patient did not have positive cultures but possible low yield culture she likely had complicated urinary tract infection related to recent left ureteral stent.
End
Total discharge time spent to see the patient on the floor, examine the patient, review data and lab results, discuss discharge plan with patient, nursing staff around 65 minutes
Original Note:
Today's Communication/Plan
-
Possible discharge pending urology evaluation today
Assessment / Plan
Assessment / Plan
Physical exam:
General:Not Acutely ill
HEENT: Normocephalic, Atraumatic and Moist Mucous Membranes
Respiratory: Clear to Auscultation; Negative Wheezes, Rales or Rhonchi
Cardiac: Regular Rhythm and S1/S2
GI: Soft, Nontender and Nondistended
: No Siegel, No CV tenderness
Musculoskeletal: No Clubbing, No Cyanosis and No Edema
Neuro: Awake, Alert and Oriented
Psych: Calm
Patient 77 years old female with recent left ureteral stent few days ago admitted to the hospital with left flank abdominal pain associated with nausea and found to have leukocytosis, concerns for sepsis due to UTI related to recent urological
procedure. Patient at risk morbidity mortality therefore she will need to be here in the hospital for further evaluation.
PLAN:
#Sepsis POA with leukocytosis, tachycardia and lactic acidosis due to UTI:
No CV tenderness
No fevers
HR is stable
She feels better but has left flank discomfort
s/p IV fluid of normal saline and IV antibiotic, IV Rocephin
Negative blood and urine cultures
d/w urology, no need for intervention.
Appreciate urology help
# constipation
No abd pain or distension
will give Dulcolax
# Essential Hypertension:
Resume home antihypertensives.
No chest pain or sob
Monitor blood pressure and adjust medications accordingly.
#Hypothyroidism:
# Hyperglycemia:
Likely reactive check hemoglobin A1c in a.m.
DVT prophylaxis:
SCDs
CODE STATUS:
Full code
Total discharge time spent to see the patient on the floor, examine the patient, review data and lab results, discuss discharge plan with patient, nursing staff around 65 minutes
Anticipated Discharge: Within 24 hours
Subjective/Interval History
-
Date of Service: October 14, 2023
Objective Data
-
Vital Signs:
Vital Signs
Temp Pulse Resp BP Pulse Ox
98.3 F 74 18 140/71 96
10/14/23 07:15 10/14/23 07:15 10/14/23 07:15 10/14/23 07:15 10/14/23 07:15
I&O
10/13/23 10/14/23 10/15/23
06:59 06:59 06:59
Intake Total 1680 / 1680 600 / 600
Balance 1680 / 1680 600 / 600
--- NOTE | 2023-10-14 09:07 | W.PN.URO.CBU ---
Today's Communication / Plan
-
no gu intervention discharge planning as early as today by hospitalist
Assessment / Plan
-
77F with L ureteral and renal stones s/p ureteroscopy and stent placement 10/08
Presenting with nausea/vomiting, pain, and chills now asx
Lactic acidosis and mild leukocytosis consistent with UTI/pyelonephritis now resolved
- CT shows stent in good position without hydronephrosis. No surgical intervention needed home as early as today p[rohit per hospitakist
-
- Outpatient stent removal to be rescheduled
Diagnosis
-
Date of Service: October 14, 2023
-
Patient Diagnosis:
Post Op Day:
Patient Diagnosis:
Pyelonephritis
kidney stone
Post Op Day:
Subjective
-
fee;s baseline
Objective
-
Vital Signs
Temp Pulse Resp BP Pulse Ox
98.3 F 74 18 140/71 96
10/14/23 07:15 10/14/23 07:15 10/14/23 07:15 10/14/23 07:15 10/14/23 07:15
Intake and Output
10/13/23 10/14/23 10/15/23
06:59 06:59 06:59
Intake Total 1680 / 1680 600 / 600
Balance 1680 / 1680 600 / 600
Intake:
Oral fluids 480 / 480 600 / 600
IV fluids (Total) 1200 / 1200
Other:
Number of approximated MODERATE 2
amounts of urine
Number of approximated LARGE 1
amounts of urine
Laboratory Results
10/13/23 06:23
10/13/23 06:23
Review of Systems
-
: Urgency
Physical Exam
-
General - well developed, well nourished, no acute distress
Chest - clear bilaterally
Abdomen - soft, non-tender, positive bowel sounds, no CVAT, no incisional pain or distention
Genitalia - normal
Rectal - normal
Skin - warm & dry with no rash
Neuro - AOx3, no motor deficits
Extremities - no clubbing, no cyanosis, no edema
Incision - clean, dry
Dressing - clean, dry, intact
Care Review
Data Reviewed
Discussed with: Nursing
[2023-10-14] MEDS: ROCEPHIN 1000 MG IV (09:57)
[2023-10-14] MEDS: LIPITOR 20 MG PO (09:58)
[2023-10-14] MEDS: ZESTRIL 20 MG PO (09:58)
[2023-10-14] MEDS: CELEXA 10 MG PO (09:58)
[2023-10-14] MEDS: STERILE WATER FOR INJECTION 10 ML IV (09:58)
[2023-10-14] MEDS: BENTYL 20 MG PO (09:58)
[2023-10-14 11:30] VITALS: BP 140/67
[2023-10-14 15:10] VITALS: BP 119/69
--- NOTE | 2023-10-14 15:14 | CM ---
Chart reviewed and plan is to home no needs when stable.
Plan; Home no needs.
--- NOTE | 2023-10-14 16:15 | W.DCSUMMARY ---
Discharge Summary
Discharge Data
Date of Admission: 10/12/23
Date of Discharge: 10/14/23
-
Pending Results: No
Hospital Course
77 years old female presented with nausea, vomiting left renal colic with chills. She did not have fever. She had mild leukocytosis with lactic acidosis. Patient was diagnosed with possible urinary tract infection related to recent urologic
intervention. Scan of the abdomen and pelvis showed that the left sided double-J ureteral stent was in good position without hydronephrosis. Patient was seen by urologist and recommended to continue to treat possible infection, pain control with
no surgical intervention. Patient received course of intravenous ceftriaxone in the hospital. Leukocytosis resolved. Urine and blood culture did not show any growth. Patient started to feel better and was able to tolerate diet. Urology doctor
recommended outpatient stent removal. Creatinine was 0.7 upon discharge. Patient remained hemodynamically stable and was discharged in a stable condition.
Discharge Plan
-
Patient Disposition: Home (Routine Discharge)
Discharge Diagnosis/Procedures: UTI, renal stent
Your blood and urine cultures showed no growth. You finished the course of IV Antibiotic, you were sent on oral antibiotic to finish 7 days course.
Diet: As tolerated
Referrals:
Leighton Son MD [Active] - (call Dr Son [phone] reschedule setnt removal )
Montana Graves MD [Family Provider] -
Prescriptions:
New
cefdinir 300 mg capsule
300 mg PO BID Qty: 8 0RF
Continued
lisinopril 10 MG tablet
20 mg PO DAILY
dicyclomine 20 mg Tablet
20 mg PO DAILY
Prolia 60 mg/mL Syringe
60 mg SC [id number]
citalopram 10 mg Tablet
10 mg PO DAILY
cholecalciferol (vitamin D3) [Vitamin D3] 25 mcg (1,000 unit) Tablet
25 mcg PO DAILY
atorvastatin [Lipitor] 20 mg Tablet
20 mg PO DAILY
levothyroxine [Synthroid] 75 mcg Tablet
75 mcg PO DAILY
dicyclomine 20 mg Tablet
20 mg PO TIDPRN PRN (Reason: spasms)
ibuprofen 400 mg Tablet
400 mg PO BIDPRN PRN (Reason: mild pain)
Discharge Orders:
Discharge Patient (As Directed); Ordered 10/14/23
Ordered By: Allyn Ramos
Discharge Date and Time
Print Language: TURKMEN
== END 2023-10-14 16:53 | disposition home or self-care (01) | DRG 872 ==
LOC: 4 WEST ACU 14:02
PROVIDERS: ADMITTING PHYSICIAN Hospitalist; ATTENDING PHYSICIAN Internal Medicine; CONSULT PHYSICIAN Urology; EMERGENCY PHYSICIAN Emergency Medicine; FAMILY PHYSICIAN Family Medicine
DX: A41.9 Sepsis, unspecified organism (principal); E87.20 Acidosis, unspecified; N39.0 Urinary tract infection, site not specified; N20.2 Calculus of kidney with calculus of ureter; I10 Essential (primary) hypertension; E03.9 Hypothyroidism, unspecified; R73.9 Hyperglycemia, unspecified
CPT/HCPCS: 74018; 74176; 76000; 80048; 80053; 81003; 81015; 82365; 83036; 83605; 84443; 85025; 87040; 87086; 96361; 96374; 96375; 99285; A4300; C1894; C2617

== ENCOUNTER → 2024-01-01 12:38 | Outpatient (REF) | payer MEDICARE, OTHER, SELFPAY | LOC: WDC 12:38 | PROVIDERS: ATTENDING PHYSICIAN Family Medicine | DX: Z12.31 Encounter for screening mammogram for malignant neoplasm of breast (principal) | CPT/HCPCS: 77063; 77067 ==

== ENCOUNTER → 2024-01-12 11:00 | Outpatient (REF) | payer MEDICARE, OTHER, SELFPAY ==
[2024-01-12 12:35] LABS: % Basophils 0.5 % (0-2); % Eosinophils 1.6 % (0-6); % Immature Granulocytes 0.2 % (0-0.5); % Lymphocytes 24.4 % (20.5-51.1); % Neutrophils 64.3 % (42.2-75.2); Absolute Eosinophils 0.1 10^3/uL (0-0.7); Absolute Lymphocytes 1.6 10^3/uL (1.2-3.4); Absolute Monocytes 0.6 10^3/uL (0.1-0.6); Absolute Neutrophils 4.1 10^3/uL (1.4-6.5); Hemoglobin 13.9 g/dL (12.0-16.0); Mean Corp Hgb Conc. 33.1 g/dL (33.0-37.0); Mean Corpuscular Hgb 31.6 pg (27.0-31.0); Mean Corpuscular Volume 95.5 fL (81.0-99.0); Mean Platelet Volume 11.1 fL (7.4-10.4); Nucleated Red Blood Cells % 0 %; Platelet Count 270 10^3/uL (130-400); Red Cell Dist. Width 12.5 % (11.5-14.5); White Blood Cell Count 6.4 10^3/uL (4.8-10.8)
[2024-01-12 13:08] LABS: Blood Urea Nitrogen 18 mg/dl (7-17); Calcium 9.5 mg/dl (8.4-10.2); Carbon Dioxide 27 mmol/L (22-30); Chloride 104 mmol/L (98-107); Glucose 89 mg/dl (70-99); Potassium 4.8 mmol/L (3.5-5.1); Sodium 140 mmol/L (135-145); eGFR > 60.00
== END ==
LOC: RCS 11:00
PROVIDERS: ATTENDING PHYSICIAN Internal Medicine Cardiovascular Disease; FAMILY PHYSICIAN Family Medicine; REFERRING PHYSICIAN Orthopaedic Surgery
DX: I44.4 Left anterior fascicular block (principal); Z01.818 Encounter for other preprocedural examination
CPT/HCPCS: 36415; 80048; 85025; 93306

== ENCOUNTER 2024-02-12 06:39 | Inpatient (IN) | payer MEDICARE, OTHER, SELFPAY ==
[2024-02-11 21:56] VITALS: BP 174/78
[2024-02-11 22:17] LABS: % Basophils 0.1 % (0-2); % Eosinophils 0.2 % (0-6); % Immature Granulocytes 0.5 % (0-0.5); % Lymphocytes 9.9 % (20.5-51.1); % Monocytes 10.6 % (1.7-9.3); % Neutrophils 78.7 % (42.2-75.2); Absolute Immature Granulocytes 0.1 10^3/uL (0-0.05); Absolute Lymphocytes 1.4 10^3/uL (1.2-3.4); Absolute Monocytes 1.5 10^3/uL (0.1-0.6); Absolute Neutrophils 11.4 10^3/uL (1.4-6.5); Hematocrit 31.7 % (37.0-47.0); Hemoglobin 11.2 g/dL (12.0-16.0); Mean Corp Hgb Conc. 35.3 g/dL (33.0-37.0); Mean Corpuscular Hgb 31.6 pg (27.0-31.0); Mean Corpuscular Volume 89.5 fL (81.0-99.0); Nucleated Red Blood Cells % 0 %; Platelet Count 249 10^3/uL (130-400); Red Blood Cell Count 3.54 10^6/uL (4.20-5.40); Red Cell Dist. Width 12.5 % (11.5-14.5); White Blood Cell Count 14.5 10^3/uL (4.8-10.8)
[2024-02-11 22:28] LABS: ALT (SGPT) 21 U/L (0-35); AST (SGOT) 42 U/L (14-36); Albumin 4.1 g/dl (3.5-5.0); Alkaline Phosphatase 69 U/L (38-126); Blood Urea Nitrogen 24 mg/dl (7-17); Calcium 9.5 mg/dl (8.4-10.2); Carbon Dioxide 21 mmol/L (22-30); Chloride 100 mmol/L (98-107); Glucose 148 mg/dl (70-99); Lipase 87 U/L (23-300); Potassium 4.2 mmol/L (3.5-5.1); Sodium 134 mmol/L (135-145); Total Bilirubin 0.8 mg/dl (0.2-1.3); Total Protein 6.6 g/dl (6.3-8.2); eGFR > 60.00
--- NOTE | 2024-02-12 01:28 | ED.GENMED ---
History of Present Illness
General
Chief Complaint: Abdominal Symptoms
Source: patient
Exam Limitations: none
Time Seen by Provider: 02/12/24 00:47
History of Present Illness
History of Present Illness:
This is a 78 year old female that comes in with c/o nausea and vomiting. States that she took Tylenol at 3pm and it hit her stomach like a 'led brick'. States that she is so nauseated and has been vomiting. States that she is sweating and has
chills. Denies any fever, chest pain, SOB, diarrhea, headache, dizziness, urinary burning.
Past History
Past History
ED Past Medical History: HTN, Hypothyroidism and Other (Kidney stones, Diverticulitis, IBS, UTI, )
ED Past Surgical History: Gynecological (Hysterectomy), Orthopedic (left knee replacement, ), Urological (Lithotripsy X 2) and Other (Salivary gland removed, Mastoid surgery)
Social History
Tobacco: Former smoker
Alcohol: Occasional
Drug: None
Personal:
Living: with family
Employment: Retired
Family History
Family History: Other (Noncontributory)
Review of Systems
Review of Systems
All Other Systems: ROS reviewed and negative except as documented in HPI and ROS
Constitutional: Reports chills and other (Sweating); Denies fever
EENT: Reports no symptoms
Respiratory: Reports no symptoms; Denies cough or trouble breathing
Cardiac: Reports no symptoms; Denies chest pain
ABD/GI: Reports abdominal pain, nausea and vomiting; Denies diarrhea
: Reports no symptoms; Denies dysuria, frequency or urgency
Musculoskeletal: Reports no symptoms
Skin: Reports no symptoms
Neurological: Reports no symptoms; Denies dizzy or headache
Psychiatric: Reports no symptoms
Phy Exam
General Physical Exam
General Presentation: mild distress
General age: appears stated age
General Skin: cool
General Habitus: elderly
General Mental: alert
General Hydration: dry mucous membranes
ENT Exam
ENT Exam: TM's normal, pharynx normal and neck supple
Eye Exam
Eye Exam: EOMI
Cardiovascular Exam
Cardiovascular Exam: regular rate/rhythm and normal peripheral pulses
Pulmonary Exam
Pulmonary Exam: lungs clear, no respiratory distress, no rales, chest non tender, no crackles, no rhonchi, no wheezing and no cough
Gastrointestinal Exam
Gastrointestinal Exam: normal bowel sounds, non tender, soft, no organomegaly, no pulsatile mass and non distended
Musculoskeletal Exam
Musculoskeletal Exam: edema (Slight swelling of the left leg due to recent Knee replacement)
Skin Exam
Skin Exam: normal color, warm/dry, no petechia and other (Contusion of the left leg noted. )
Psychiatric Exam
Psychiatric Exam: normal mood/affect
Course
Orders/Labs/Results
Orders:
Orders
02/11/24 22:03
Complete Blood Count/With Diff Urgent
Comprehensive Metabolic Panel Urgent
Lipase Urgent
02/12/24 01:27
Electrocardiogram (*1) Urgent
Reason for Study: QTc Monitoring
EKG- Treatment ONCE
0.9% Sodium Chloride 1000 ml [Nss] 1,000 ml IV BOLUS
Ondansetron Injectable [Zofran] 4 mg IV NOW STA
02/12/24 01:28
Pantoprazole [Protonix IV] 40 mg IV NOW STA
Sucralfate Suspension [Carafate Suspension] 1 gm PO NOW STA
02/12/24 01:46
Lactic Acid Urgent
02/12/24 02:28
Urinalysis Reflex To Culture Urgent
Date Specimen was Collected: 02/12/24
Time Specimen was Collected: 02:13
Urine Microscopic Reflex Cult Urgent
Urine Culture Urgent
DIANNA Source: U
Specimen Description:
Date Specimen was Collected: 02/12/24
Time Specimen was Collected: 02:13
02/12/24 03:31
CT Abd/pelvis W Iv Cont Urgent
Comment:
Reason For Exam: abd pain
Ondansetron Injectable [Zofran] 4 mg IV NOW STA
Abnormal Lab Results
02/11/24 02/12/24
22:03 02:28
WBC 14.5 H 10^3/uL
(4.8-10.8)
RBC 3.54 L 10^6/uL
(4.20-5.40)
Hgb 11.2 L g/dL
(12.0-16.0)
Hct 31.7 L %
(37.0-47.0)
MCH 31.6 H pg
(27.0-31.0)
MPV 11.0 H fL
(7.4-10.4)
Abs Immat Gran (auto) 0.1 H 10^3/uL
(0-0.05)
Absolute Neuts (auto) 11.4 H 10^3/uL
(1.4-6.5)
Absolute Monos (auto) 1.5 H 10^3/uL
(0.1-0.6)
Neutrophils % 78.7 H %
(42.2-75.2)
Lymphocytes % 9.9 L %
(20.5-51.1)
Monocytes % 10.6 H %
(1.7-9.3)
Sodium 134 L mmol/L
(135-145)
Carbon Dioxide 21 L mmol/L
(22-30)
BUN 24 H mg/dl
(7-17)
Glucose 148 H mg/dl
(70-99)
AST 42 H U/L
(14-36)
Urine Ketones Trace A
(Negative)
Urine Bilirubin 1+ A
(Negative)
Urine Urobilinogen 3+ A
(Neg - 1+)
Leukocyte Esterase Rfl Trace A
(Negative)
Urine RBC 16-20 A /HPF
(0-2)
Urine Bacteria (Reflex) Many A
(Negative)
02/11/24 22:03
02/11/24 22:03
Leukocytosis, H/H slightly low, Carbon dioxide slightly low. Dehydration. Hyperglycemia. AST elevation. Lipase normal 87, Urine negative for infection.
Vital Signs
Initial and Last Documented VS:
Initial Vital Signs
Temp Pulse Resp BP Pulse Ox
98 F 86 16 174/78 100
02/11/24 21:56 02/11/24 21:56 02/11/24 21:56 02/11/24 21:56 02/11/24 21:56
Last Documented Vital Signs
Temp Pulse Resp BP Pulse Ox
98 F 91 29 179/74 98
02/11/24 21:56 02/12/24 02:24 02/12/24 02:24 02/12/24 02:24 02/12/24 02:24
MDM/Problems Addressed
Differential Diagnosis Includes:
Gastritis, Enteritis, Viral syndrome, UTI
MDM/Problems Addressed:
This is a 78 year old female that comes in with c/o abd pain, nausea and vomiting. States that this started today after she took Tylenol at 2pm.
Will check labs, Urine, . Medicate for nausea and give IV fluids.
Back into see patient. Patient states that she feels a little better but still has not been able to move her bowels. States that she has tried 4 times while here. Patient remains nontender with palpation. However will get CT scan to look for any
obstruction.
Into see patient. Explained that her CT shows cholecystitis. Will get US and admit patient as she remains nauseated and very uncomfortable. Hospitalist Notified.
Chronic conditions affecting care:
NA
Acute Exacerbation and/or Progression of Chronic Illness:
NA
*Radiology
Radiology exam reviewed: radiology read reviewed (CT- Gallbladder is disstended and inflammed, suspicious for holecystitis. Correlate with ultrasound. No pancreatitis. NO obstructing renal stone. NO bowel obstruction. The appendix is normal. No
diverticulitis. Gastric and duodenal wall thickening reflecting gastritis/duodenitis. Abdominal aorta is ) and other (CT cont- of normal caliver. Lung bases are clear. Spine degeneration )
*Pulse Oximetry
Patient hypoxic: no
*EKG
Interpreted by ED Provider?: NA
Rate: EKG- N/A
*Finance Intern Interpretation
Rate: Finance Intern- N/A
*Critical Care Note
Total Time (30-74mins, 75-104mins- exclusive of procedures): Not Applicable
ED Attending Note
-
Portions of this chart may have been created with voice recognition software.� Occasional wrong word or��sound alike� substitutions may have occurred due to the inherent limitations of voice recognition software.
Discharge Plan
Departure
Patient Disposition: Admit
Date of Disposition: 02/12/24
Time of Disposition: 04:24
Admit to: Med/Surg
Presentation/result/management discussed w/ accepting MD/DO: Hospitalist
Patient with high blood pressure during this ER visit?: Yes
Condition: Good
Covid-19: Not Applicable
Discharge Problem:
Nausea & vomiting, Acute cholecystitis
Prescriptions:
No Action
lisinopril 10 MG tablet
20 mg PO DAILY
dicyclomine 20 mg Tablet
20 mg PO DAILY
Prolia 60 mg/mL Syringe
60 mg SC [id number]
citalopram 10 mg Tablet
10 mg PO DAILY
cholecalciferol (vitamin D3) [Vitamin D3] 25 mcg (1,000 unit) Tablet
25 mcg PO DAILY
atorvastatin [Lipitor] 20 mg Tablet
20 mg PO DAILY
levothyroxine [Synthroid] 75 mcg Tablet
75 mcg PO DAILY
dicyclomine 20 mg Tablet
20 mg PO TIDPRN PRN (Reason: spasms)
ibuprofen 400 mg Tablet
400 mg PO BIDPRN PRN (Reason: mild pain)
cefdinir 300 mg capsule
300 mg PO BID Qty: 8 0RF
Referrals:
Montana Graves MD [Family Provider] -
Interventions
Interventions:
*Risk Screen - Suicide Last Done: 02/11/24 21:56
MJ-[id number]-[id number] Assessment Last Done: 02/12/24 02:33
Discharge Date and Time
Print Language: FRISIAN
[2024-02-12] MEDS: NSS 1000 IV ×2 (01:46→09:03)
[2024-02-12] MEDS: ZOFRAN 4 MG IV ×2 (01:46→03:52)
[2024-02-12] MEDS: PROTONIX IV 40 MG IV (01:47)
[2024-02-12] MEDS: CARAFATE SUSPENSION 1 GM PO (01:47)
[2024-02-12 02:23] LABS: Lactic Acid 1.6 mmol/L (0.7-2.0)
[2024-02-12 02:24] VITALS: BP 179/74
[2024-02-12 02:44] LABS: Urine Albumin Negative (Neg - Trace); Urine Bilirubin 1+ (Negative); Urine Character Slightly Cloudy (Clear); Urine Color Yellow; Urine Glucose Negative (Negative); Urine Ketone Trace (Negative); Urine Leukocyte Trace (Negative); Urine Nitrite Negative (Negative); Urine Occult Blood Negative (Negative); Urine Specific Gravity 1.015 (<1.030); Urine Urobilinogen 3+ (Neg - 1+)
[2024-02-12 03:18] LABS: Urine Bacteria Many (Negative)
[2024-02-12 03:20] LABS: Urine Mucus Few; Urine Red Blood Cell 16-20 /HPF (0-2)
--- NOTE | 2024-02-12 05:16 | HPS.HSE ---
Family Physician
-
Family Physician: Montana Graves
Chief Complaint
-
N/V
History of Present Illness
Patient is a 78y F with PMH significant for nephrolithiasis, hypertension and recent TKA who presents to ED complaining of abdominal discomfort and N/V. History obtained from patient and her at the bedside. Patient underwent L TKA on
Friday02/09/24. She tolerated that procedure well and notes that she has been doing well in recovery. She has taken 1/2 of an oxycodone this far for pain. She is on multiple other new medications following her surgery, but she cannot recall most
of the names / doses and does not have a list with her.
She is taking aspirin and Celebrex and 'anti-inflammatories'. She has been taking Tylenol ATC for pain control.
Yesterday afternoon, patient began to complain of nausea / generalized abdominal discomfort / 'not feeling well'.
She had several episodes at home and here in the ED of non-bloody emesis. She states that she feels as if she has to move her bowels. She has had small, non-bloody BMs since her surgery.
Patient denies any chest pain, dyspnea, cough, fevers / chills, etc.
Medical History
Past Medical History
Past Medical History: Reports Other
Additional Past Medical History:
Hypertension
Hypothyroidism
Nephrolithiasis
IBS
Past Surgical History: Reports Other
Additional Past Surgical History:
Left TKA (02/09/24)
Lithotripsies
Ureteroscopy / Stent Placement
Social History
Tobacco: Former Smoker (Quit smoking about 30 years ago. Approx 20 pack years total use.)
Alcohol: Occasional (Rare.)
Personal:
Living: With Family
Family History
Family History: Not pertinent
Allergies / Home Medications
Allergies reflects when Allergies were last updated in [facility].
Home Medications with original date entered in [facility]
Allergy/Medication List:
Patient cannot recall current meds / doses.
If medication reconciliation has not been performed, why?: Medication List N/A
Review of Systems
-
History Source: Patient and Family
A 12 point ROS was completed and negative except as noted: Yes
Constitutional: Reports Fatigue; Denies Fever or Chills
EENT: Denies Sore Throat
Respiratory: Denies Cough or Trouble Breathing
Cardiac: Denies Chest Pain or Palpitations
Abdomen/GI: Reports Abdominal Pain, Nausea, Vomiting, Constipated and Anorexia; Denies Diarrhea, Bloody Stools or Black Stools
: Denies Dysuria or Flank Pain
Musculoskeletal: Reports Joint Pain and Edema
Skin: Reports Other (Bruising.)
Neurological: Denies Dizzy or Headache
Psych: Denies Depression or Anxiety
Physical Exam
Vital Signs
Vital Signs
Temp Pulse Resp BP Pulse Ox
98 F 100 22 179/74 98
02/11/24 21:56 02/12/24 03:01 02/12/24 03:01 02/12/24 02:24 02/12/24 02:24
Physical Exam
General: Other (78y F in no acute distress.)
HEENT: Moist mucous membranes and PERRLA
Respiratory: Clear; No Wheezes, Rales or Rhonchi
Cardiac: S1/S2 and Regular Rhythm; No Murmur
GI: Soft, Non Tender, Non Distended and Normal Bowel Sounds
Musculoskeletal: No Clubbing, No Cyanosis and Other (LLE with edema / ecchymosis s/p recent surgery. Occlusive dressing in place with minimal strikethrough.)
Neuro: AO x 3
Laboratory Results
-
02/11/24 22:03
02/11/24 22:03
Laboratory Results
Lactic Acid 1.6 mmol/L (0.7-2.0) 02/12/24 01:46
Total Bilirubin 0.8 mg/dl (0.2-1.3) 02/11/24 22:03
AST 42 U/L (14-36) H 02/11/24 22:03
ALT 21 U/L (0-35) 02/11/24 22:03
Alkaline Phosphatase 69 U/L (38-126) 02/11/24 22:03
Lipase 87 U/L (23-300) 02/11/24 22:03
Impression/Plan
-
A/P: Patient is a 78y F with PMH significant for hypertension, kidney stones and recent TKA who presents to ED complaining of N/V.
Intractable N/V
- Admit for further evaluation and treatment.
- Suspect gastritis - likely related to new medications.
- US done and is unremarkable - no evidence for acute cholecystitis.
- Hold Celebrex / NSAIDs.
- Use enteric coated ASA for DVT prophylaxis.
- IV PPI BID.
- Antiemetics, IVFs, supportive care.
- Follow for clinical improvement.
- Review meds after formal med rec in AM to identify potential culprits / contributors.
s/p L TKA
- Patient had L TKA at [facility] on 02/09/24.
- Doing very well in regards to pain control / mobility post-op.
- Continue PT / OT.
- Maintain current dressing.
- Consult Ortho ([facility]) if any acute issues - otherwise follow-up as an outpatient as scheduled.
- EC-ASA 325mg daily for DVT prophylaxis for now - follow-up after med rec in the AM.
- Try to limit meds that would contribute to GI upset.
Post-Op Blood Loss Anemia
- Hgb 11.2 compared to baseline of around 13.
- Expected ecchymosis of the LLE following recent surgery.
- Follow H&H for any changes.
Benign Hypertension
- Stable. Continue lisinopril with holding parameters for now.
- Adjust / correct meds after formal med rec in the AM.
Hypothyroidism
- Continue current T4 dose.
History of Recurrent Nephrolithiasis
- Most recent episode was in September and require cysto, stent, etc.
- CT today shows no ureteral stones and patient notes that current symptoms are not similar to prior episodes.
DVT Prophylaxis: ASA
Code Status: Full
[2024-02-12 05:35] VITALS: BP 173/83
[2024-02-12 06:00] VITALS: BP 170/83
--- NOTE | 2024-02-12 07:58 | W.PN.HOSP.TC ---
Today's Communication/Plan
-
Discharge today
Assessment / Plan
Assessment / Plan
Physical Exam
General: Other (78y F in no acute distress.)
HEENT: Moist mucous membranes
Respiratory: Clear to Auscultation Bilaterally
Cardiac: S1/S2 and Regular Rhythm
GI: Soft, Non Distended and Normal Bowel Sounds. Mild epigastric tenderness.
Musculoskeletal: No Cyanosis and Other (LLE with edema / ecchymosis s/p recent surgery. Occlusive dressing in place with minimal strikethrough.)
Neuro: AAO x 3
Assessment/Plan
78y F with gastritis, N/V. Had TKA done Friday ([facility]) and presented with N/V, anorexia, GI upset. Asked to admit for acute cholecystitis (which [facility] did read on CT) which seemed unlikely. US done and is completely normal - no cholecystitis.
IV PPI, hold NSAIDs / decrease ASA.
Intractable N/V - RESOLVED -- Suspected from Gastritis given recent home meds with high dose Aspirin, Celebrex, and Advil
- Suspect gastritis - likely related to new medications.
- US done and is unremarkable - no evidence for acute cholecystitis.
- Hold Celebrex / NSAIDs.
- On discharge, do Aspirin 81 mg BID (I spoke, via [facility], on 02/12/24, with Dr. Lee via [facility], and Dr. Lee said that patient's Aspirin 325 mg daily can be changed to Aspirin 81 mg BID on discharge, for DVT prophylaxis purposes)
- Dr Lee also said that mechanical compression of patient's legs are not needed at this time as patient is not above average risk for DVT
- Pantoprazole BID
- Antiemetics, IVFs, supportive care.
- Follow for clinical improvement.
- Review meds after formal med rec in AM to identify potential culprits / contributors.
- Can use Miralax for constipation
- I confirmed with Dr. Portillo (measurement and verification engineer) via [facility] that patient does not need Carafate on discharge
Status post Left TKA
- Patient had L TKA at [facility] on 02/09/24.
- Doing very well in regards to pain control / mobility post-op.
- Continue PT / OT.
- Maintain current dressing.
- Discussed patient's case with on-call orthopedics Dr. Serrano as well as patient's surgeon Dr. Lee
- Try to limit meds that would contribute to GI upset.
Post-Op Blood Loss Anemia
Leukocytosis -- suspected from recent surgery -- no signs or symptoms of infection at this time
- Hgb 11.2 compared to baseline of around 13.
- Expected ecchymosis of the LLE following recent surgery.
- Recheck CBC outpatient
Benign Hypertension
- Stable. Continue lisinopril on discharge
- Adjust / correct meds after formal med rec in the AM.
Hypothyroidism
- Continue current T4 dose.
History of Recurrent Nephrolithiasis
- Most recent episode was in September and require cysto, stent, etc.
- CT today shows no ureteral stones and patient notes that current symptoms are not similar to prior episodes.
DVT Prophylaxis: ASA
Code Status: Full
More than 30 minutes spent in discharge including
Final examination of the patient
Summarizing hospital stay
Instructions for continuing care to all relevant caregivers
Preparation of discharge records, prescriptions, and referral forms
Total time spent (in minutes): 43
Anticipated Discharge: Today
Subjective/Interval History
-
Date of Service: February 12, 2024
Patient was seen and examined. She tolerated most of her lunch today. She is wanting to go home.
Objective Data
-
Labs:
Laboratory Results
02/11/24
22:03
WBC 14.5 H
Hgb 11.2 L
Hct 31.7 L
Plt Count 249
Sodium 134 L
Potassium 4.2
Chloride 100
Carbon Dioxide 21 L
BUN 24 H
Creatinine 0.9
Glucose 148 H
Calcium 9.5
Total Bilirubin 0.8
AST 42 H
ALT 21
Alkaline Phosphatase 69
Vital Signs:
Vital Signs
Temp Pulse Resp BP Pulse Ox
98 F 100 22 179/74 98
02/11/24 21:56 02/12/24 03:01 02/12/24 03:01 02/12/24 02:24 02/12/24 02:24
[2024-02-12 08:21] VITALS: BP 164/105
--- NOTE | 2024-02-12 08:50 | CON.GI ---
Addendum entered and electronically signed by Luan Portillo MD 02/12/24 10:57:
I saw and examined the patient.
The TECHNICAL SPECIALIST or PA's note was reviewed and I agree with the note.
Comment: 78yo female presents with several days of abd pain, n/v following L TKA 02/08. Post op she was started on dexamethasone, celebrex, ASA. Denies any problems previously. No prior EGD. She was taking about 1 motrin daily for the weeks
leading up to knee surgery. CT on admission showed mild GB distention with GBWT and edema. US showed unremarkable GB. LFTs lipase normal
REC:
Suspect NSAID gastritis
Agree with BID PPI and carafate
On clears currently. If no n/v, advance diet as tolerated
If no improvement, then EGD
Original Note:
Consultation
-
Date/Time Consultation Requested: 02/12/24805
Date/Time Consultation Performed: 02/12/24829
Requesting Provider: Dr. Whitehead
Performing Provider: Dr. Portillo/SARAH Diaz
Reason for Consultation: abd pain
Medical History
Chief Complaint / HPI
Chief Complaint: abd pain, N/V
History of Present Illness:
78-year-old female with past medical history of hypertension, hyperlipidemia, hypothyroidism, colon polyps (follows with Dr. Adrianne Mccormick at [facility] ), history of hepatitis C status posttreatment and eradication, kidney stones, osteoporosis with left
knee osteoarthritis status post left knee TKA on 02/09/2024 presents to the emergency room with acute onset of epigastric pain, nausea and vomiting. Asked to evaluate for the same. The patient had outpatient surgery on 02/09/2024 at outside
surgery center. The patient states that all went well and she was discharged to home. She states that night she ate very lightly with avocado toast. Her medications that she was taking included aspirin 325 mg daily, oxycodone 5 mg however she
states she did not take these, dexamethasone 4 mg every 12 hours for 3 days, Celebrex 100 mg twice daily for 15 days as well as Tylenol 2 capsules twice a day. The patient states on Friday morning she was doing well. She ate and egg and a piece
of toast. By dinner she was not feeling so well she ate a very small amount of dinner. Her stomach started to ache a little bit. Friday morning she states she had stomach discomfort that was in the epigastric area. She states this was dull,
gnawing. She states her niece came over from 12 noon to 4 PM she still had a stomach discomfort and was unable to eat. She then states that her partner [place] made dinner. She was only able to eat a small amount and then she vomited which was
bilious in nature. She proceeded to have more abdominal pain that evening at 1 point she called orthopedic surgeon he instructed her to take some Tums. She promptly vomited this up that was frothy in nature. She never had any hematemesis or
coffee grounds. At that point because of persistent pain nausea and vomiting she proceeded to come to the emergency room. She had a bowel movement the day of surgery and yesterday. This was solid. Rectal exam performed by myself in the emergency
room was a brown/orange bowel movement that was negative for occult blood. I reviewed her prehospitalization lab work from outpatient as well as current lab work. The patient denies any fevers, chills, melena, hematochezia, dysphagia or dyne
aphasia. The patient has no early satiety or unintentional weight loss. She has never had an upper endoscopy before. She states she usually has soft to loose bowel movements and does follow with outpatient GI. She denies any family history
gastrointestinal malignancy or inflammatory bowel disease. She does not take any GI prophylaxis. WBC 14.5, hemoglobin 11.2, hematocrit 31.7, platelet count 249, sodium 134, potassium 4.2, chloride 100, CO2 21, BUN 24, creatinine 0.9, glucose 148,
total bilirubin 0.8, AST 42, ALT 21, alk phos 69, albumin 4.1, lipase 87. Of note patient is on dexamethasone at the present time. Patient is afebrile. Outpatient labs performed on 01/12/2024 showed WBC 5.4, hemoglobin 13.9, hematocrit 42.0
platelets 270., Labs 10/25/2023 sodium 141, potassium 4.5, BUN 23, creatinine 0.81.
Past Medical History
Past Medical History: HTN, Hypercholesterolemia and Other (Hepatitis C status posttreatment eradication, kidney stones, osteoporosis, osteoarthritis)
Past Surgical History: Gynecological (Hysterectomy) and Other (Left knee replacement, lithotripsy x 2, salivary gland removed, mastoid surgery)
Social History
Tobacco: Former Smoker
Alcohol: Occasional (Rare alcohol few times a year, none in many months)
Drug: None
Personal:
Living: With Family
Family History
Family History: Other (No family history of gastrointestinal malignancy or IBD)
Allergies / Home Medications
Allergy/AdvReac Type Severity Reaction Status Date / Time
No Known Allergies Allergy Verified 02/11/24 21:59
�Medication �Instructions �Recorded
lisinopril 10 mg tablet 20 mg PO DAILY 12/25/10
denosumab 60 mg/mL subcutaneous 60 mg SC [id number] 10/07/23
syringe (Prolia)
cholecalciferol (vitamin D3) 25 25 mcg PO DAILY 10/09/23
mcg (1,000 unit) tablet (Vitamin
D3)
citalopram 10 mg tablet 10 mg PO DAILY 10/09/23
atorvastatin 20 mg tablet (Lipitor) 20 mg PO DAILY 10/12/23
dicyclomine 20 mg tablet 20 mg PO TIDPRN PRN spasms 10/12/23
levothyroxine 75 mcg tablet 75 mcg PO DAILY 10/12/23
(Synthroid)
aspirin 325 mg tablet 325 mg PO DAILY 02/12/24
celecoxib 100 mg capsule 100 mg PO BIDPRN PRN mild pain 02/12/24
ondansetron HCl 4 mg tablet 4 mg PO Q6HPRN PRN nausea 02/12/24
oxycodone 5 mg tablet 5 mg PO Q6HPRN PRN severe pain 02/12/24
Review of Systems
-
All other systems: A 12 pt ROS was Negative except as stated above in HPI
Vital Signs
Temp Pulse Resp BP Pulse Ox
98.7 F 119 19 164/105 94
02/12/24 08:25 02/12/24 08:19 02/12/24 08:19 02/12/24 08:21 02/12/24 08:25
Physical Exam
Exam
General: No Apparent Distress
HEENT: Anicteric
Respiratory: Clear
Cardiac: Regular Rhythm
GI: Soft, Non Distended, Normal Bowel Sounds and Tender (Mild tender epigastric area)
Rectal: Hem Negative (Solid light brown/orange stool)
Musculoskeletal: No Edema and Other (Left knee status postsurgical incision with dressing in place)
Skin: Warm and Dry
Neuro: AO x 3
Psych: Calm and Confused
Results
WBC 14.5 10^3/uL (4.8-10.8) H 02/11/24 22:03
Hgb 11.2 g/dL (12.0-16.0) L 02/11/24 22:03
Hct 31.7 % (37.0-47.0) L 02/11/24 22:03
MCV 89.5 fL (81.0-99.0) 02/11/24 22:03
Plt Count 249 10^3/uL (130-400) 02/11/24 22:03
Absolute Neuts (auto) 11.4 10^3/uL (1.4-6.5) H 02/11/24 22:03
Sodium 134 mmol/L (135-145) L 02/11/24 22:03
Potassium 4.2 mmol/L (3.5-5.1) 02/11/24 22:03
Chloride 100 mmol/L (98-107) 02/11/24 22:03
Carbon Dioxide 21 mmol/L (22-30) L 02/11/24 22:03
BUN 24 mg/dl (7-17) H 02/11/24 22:03
Creatinine 0.9 mg/dL (0.6-1.0) 02/11/24 22:03
Calcium 9.5 mg/dl (8.4-10.2) 02/11/24 22:03
Total Bilirubin 0.8 mg/dl (0.2-1.3) 02/11/24 22:03
AST 42 U/L (14-36) H 02/11/24 22:03
ALT 21 U/L (0-35) 02/11/24 22:03
Alkaline Phosphatase 69 U/L (38-126) 02/11/24 22:03
Lipase 87 U/L (23-300) 02/11/24 22:03
Diagnostic Image Results:
CT abdomen pelvis with IV contrast only:
IMPRESSION:
1. Gallbladder is mildly distended, and there is gallbladder wall thickening and gallbladder wall edema. Findings are suggestive of mild cholecystitis, consider abdominal ultrasound.
2. Nephrolithiasis on each side, without hydronephrosis. No significant change compared to prior study.
Findings are in agreement with the after hours [facility] radiology report.
Electronically signed by Jairo Benedict MD, 02/12/2024 6:46 AM
Ultrasound abdomen:
Impression:
1. Unremarkable right upper quadrant ultrasound, as detailed above. No sonographic evidence for cholelithiasis or acute cholecystitis.
Electronically signed by Germain Downs, 02/12/2024 5:40 AM
Prior GI Procedures:
EGD: Never had
Colonoscopy: Patient states she had a colonoscopy (with Dr. Adrianne Mccormick this year) had 4 polyps removed.
Colonoscopy 08/10/2020 ([facility]): - Diverticulosis in the sigmoid colon, in the
transverse colon and in the ascending colon.
- One 2 mm polyp in the sigmoid colon, removed with a
cold biopsy forceps. Resected and retrieved.
- One 3 mm polyp in the transverse colon, removed with
a cold snare. Resected and retrieved.
- One 2 mm polyp at the hepatic flexure, removed with
a cold biopsy forceps. Resected and retrieved.
- One 2 mm polyp in the cecum, removed with a cold
biopsy forceps. Resected and retrieved.
- The examined portion of the ileum was normal.
Colonoscopy 04/27/2014 ([facility]):
- Diverticulosis in the sigmoid colon.
- Diverticulosis in the mid ascending colon.
- The examination was otherwise normal.
Assessment / Plan
-
78-year-old female with past medical history of hypertension, hyperlipidemia, hypothyroidism, colon polyps (follows with Dr. Adrianne Mccormick at [facility] ), history of hepatitis C status posttreatment and eradication, kidney stones, osteoporosis with left
knee osteoarthritis status post left knee TKA on 02/09/2024 presents to the emergency room with acute onset of epigastric pain, nausea and vomiting. Asked to evaluate for the same. Patient with epigastric pain with nausea and vomiting in the
setting of decreased p.o. intake, aspirin 325 mg daily, dexamethasone 4 mg twice daily, Celebrex 100 mg twice daily without GI prophylaxis. Hemoglobin is decreased without signs of hematemesis or coffee grounds. Stool is negative for occult blood.
Ultrasound of the abdomen unremarkable for cholelithiasis or acute cholecystitis.
Impression:
Epigastric discomfort--> likely gastritis given Ortho meds (aspirin 325 mg daily for 30 days, dexamethasone 4 mg twice daily for 3 days, Celebrex 100 mg twice daily for 15 days)
Nausea/vomiting --> as above
Recent slow transit constipation since OR--> likely secondary to pain medication, slowly improved.
Anemia-> no signs of active GI bleeding. Likely secondary to recent surgery
Plan:
-Continue pantoprazole twice daily
-Can use Carafate 3 times daily for the next 1 to 2 weeks. Can cause constipation recommend using MiraLAX while on this.
-Start MiraLAX daily until back to normal bowel regimen. Also continue to use if on narcotics.
-Clear liquids and advance as tolerated
-Trend hemoglobin
-Follow-up with outpatient GI (Dr. Adrianne Mccormick)
-Further recommendations to be forthcoming
-
-
Thank you for consultation and allowing me to participate in the patient's care. Please call the beverage sales consultant GI physician during the after hours with any questions or concerns.
[2024-02-12] MEDS: DILAUDID 0.5 MG IV (09:02)
[2024-02-12] MEDS: CARAFATE 1 GRAM PO (11:07)
[2024-02-12 12:02] VITALS: BP 164/100; PULSE 80
[2024-02-12] MEDS: LOW STRENGTH ASPIRIN 81 MG PO (12:48)
[2024-02-12] MEDS: COLACE 100 MG PO (12:48)
[2024-02-12] MEDS: TYLENOL 1000 MG PO (12:48)
[2024-02-12] MEDS: SYNTHROID 75 MCG PO (12:48)
[2024-02-12] MEDS: ZESTRIL 20 MG PO (12:49)
[2024-02-12] MEDS: LIPITOR 20 MG PO (12:49)
[2024-02-12] MEDS: CELEXA 10 MG PO (12:49)
--- NOTE | 2024-02-12 15:29 | CM ---
CM reviewed medical records. CM met with patient in room. Plan for discharge to home. CM confirmed that patient is known to [facility]. AMANDEEP referral sent via [facility].
[2024-02-12 15:42] VITALS: BP 124/68
== END 2024-02-12 15:53 | disposition home health service (06) | DRG 392 ==
LOC: ED 06:39
PROVIDERS: Clinical Nurse Specialist Family Health; Emergency Medicine; ADMITTING PHYSICIAN Hospitalist; ATTENDING PHYSICIAN Hospitalist; CONSULT PHYSICIAN Specialist; EMERGENCY PHYSICIAN Emergency Medicine; FAMILY PHYSICIAN Family Medicine
DX: K29.70 Gastritis, unspecified, without bleeding (principal); D62 Acute posthemorrhagic anemia; Z87.891 Personal history of nicotine dependence; Z79.82 Long term (current) use of aspirin; Z96.652 Presence of left artificial knee joint; I10 Essential (primary) hypertension; E03.9 Hypothyroidism, unspecified
CPT/HCPCS: 74177; 76705; 80053; 81003; 81015; 83605; 83690; 85025; 87086; 93005; 96361; 96374; 96375; 97161; 97166; 99285; Q9967

== ENCOUNTER 2024-02-12 23:55 | Inpatient (IN) | payer MEDICARE, OTHER, SELFPAY ==
[2024-02-12 20:36] VITALS: BMI 25.8
[2024-02-12 20:40] VITALS: BP 155/105
[2024-02-12] MEDS: ZOFRAN 4 MG IV (21:40)
[2024-02-12] MEDS: MAALOX 40 PO (21:40)
--- NOTE | 2024-02-12 21:40 | ED.GENMED ---
History of Present Illness
General
Chief Complaint: Abdominal Pain
Source: patient, records, spouse and previous radiology exam
Exam Limitations: none
Time Seen by Provider: 02/12/24 21:10
Nursing documentation reviewed up to this point in time: agreed with
History of Present Illness
History of Present Illness:
78-year-old female returns with abdominal pain seen here about 24 hours ago with similar complaints, had an ultrasound and a CAT scan concerning for biliary colic early cholecystitis, though she had apparently no gallstones, white count was up seen
by GI given some p.o. fluids or solids discharged home woke up current pain, nausea and mid abdomen does not radiate to the chest nor back, she is recuperating from left total knee replacement, using some Celebrex and Tylenol states she does not use
a lot of NSAIDs had to have oxycodone no bowel movement for few days
Past History
Past History
ED Past Medical History: HTN, Hypothyroidism and Other (Kidney stones, Diverticulitis, IBS, UTI, )
ED Past Surgical History: Gynecological (Hysterectomy), Orthopedic (left knee replacement, ), Urological (Lithotripsy X 2) and Other (Salivary gland removed, Mastoid surgery)
Social History
Tobacco: Former smoker
Alcohol: Occasional
Drug: None
Personal:
Living: with family
Employment: Retired
Family History
Family History: Other (Noncontributory)
Review of Systems
Review of Systems
All Other Systems: Not applicable
Constitutional: Denies fever or fatigue
EENT: Reports no symptoms
Respiratory: Reports no symptoms
Cardiac: Denies chest pain
ABD/GI: Reports abdominal pain, nausea and constipated
: Reports no symptoms
Musculoskeletal: Reports no symptoms
Phy Exam
Physical Exam
Physical Exam:
Physical Exam
General: 72s female looks uncomfortable
Neck: No jaundice
Heart: s1/s2 regular rate and rhythm, no murmur. equal radial pulses.
Lungs: no acute respiratory distress. clear bilaterally
Abdomen: Tender in the epigastric
Neuro: alert and oriented. no focal neurological deficits
Skin: no rash
Psychiatric: well kept. interactive and cooperative
Extremities: no edema. no calf tenderness.
Course
Orders/Labs/Results
Orders:
Orders
02/12/24 21:10
Electrocardiogram (*1) Stat
Reason for Study: Abdominal Pain
EKG- Treatment ONCE
02/12/24 21:30
HYDROmorphone [Dilaudid] 0.5 mg IV NOW STA
Pantoprazole [Protonix IV] 40 mg IV NOW STA
02/12/24 21:32
Mag Hydrox/Al Hydrox/Simeth [Maalox] 30 ml Phenobarb/Hyoscy/Atropine/Scop [] 10 ml PO NOW
Ondansetron Injectable [Zofran] 4 mg IV NOW STA
02/12/24 21:33
Obstruct Series W/PA Chest [CR Obstruct Series W/pa Chest] Urgent
Comment:
Reason For Exam: pain
02/12/24 21:39
Mag Hydrox/Al Hydrox/Simeth [Maalox] 30 ml .ROUTE .STK-MED ONE
Phenobarb/Hyoscy/Atropine/Scop [] 10 ml .ROUTE .STK-MED ONE
02/12/24 21:54
Complete Blood Count/With Diff Urgent
Comprehensive Metabolic Panel Urgent
Lipase Urgent
Troponin I Urgent
02/12/24 22:04
HYDROmorphone [Dilaudid] 0.5 mg IV NOW STA
02/12/24 22:45
0.9% Sodium Chloride 1000 ml [Nss] 1,000 ml IV 125 mls/min
Abnormal Lab Results
02/12/24
21:54
WBC 13.5 H 10^3/uL
(4.8-10.8)
RBC 3.83 L 10^6/uL
(4.20-5.40)
Hgb 11.5 L g/dL
(12.0-16.0)
Hct 33.3 L %
(37.0-47.0)
Abs Immat Gran (auto) 0.1 H 10^3/uL
(0-0.05)
Absolute Neuts (auto) 10.6 H 10^3/uL
(1.4-6.5)
Absolute Monos (auto) 1.4 H 10^3/uL
(0.1-0.6)
Immature Gran % 0.7 H %
(0-0.5)
Neutrophils % 78.5 H %
(42.2-75.2)
Lymphocytes % 10.4 L %
(20.5-51.1)
Monocytes % 10.3 H %
(1.7-9.3)
Sodium 134 L mmol/L
(135-145)
BUN 25 H mg/dl
(7-17)
Glucose 164 H mg/dl
(70-99)
AST 42 H U/L
(14-36)
Troponin I 0.230 H* ng/ml
02/12/24 21:54
02/12/24 21:54
Vital Signs
Initial and Last Documented VS:
Initial Vital Signs
Temp Pulse Resp BP Pulse Ox
97.9 F 114 15 155/105 97
02/12/24 20:40 02/12/24 20:40 02/12/24 20:40 02/12/24 20:40 02/12/24 20:40
Last Documented Vital Signs
Temp Pulse Resp BP Pulse Ox
97.9 F 114 15 155/105 97
02/12/24 20:40 02/12/24 20:40 02/12/24 20:40 02/12/24 20:40 02/12/24 20:40
*Critical Care Note
Total Time (30-74mins, 75-104mins- exclusive of procedures): Not Applicable
Update Note
Update Note:
Update, labs are noted white count trending down troponin in the indeterminate range EKG noted EKG from earlier today noted, this point I believe it would be prudent to admit her to the hospital as her diagnosis is elusive perhaps ACS perhaps
gastritis
11 PM reviewed labs and imaging with patient she is feeling much better, no chest pain no shortness of breath she points to her mid abdomen where she had pain earlier perhaps stroke related to stress, perhaps atypical ACS she tells me she was told
she had cardiac plaque previously did see Dr. Negro
ED Attending Note
-
Portions of this chart may have been created with voice recognition software.� Occasional wrong word or��sound alike� substitutions may have occurred due to the inherent limitations of voice recognition software.
Discharge Plan
Departure
Patient Disposition: Admit
Date of Disposition: 02/12/24
Time of Disposition: 23:03
Admit to: Telemetry
Presentation/result/management discussed w/ accepting MD/DO: Hospitalist
Patient with high blood pressure during this ER visit?: Yes
Condition: Good
Discharge Problem:
Nausea & vomiting, Abdominal pain
Prescriptions:
No Action
lisinopril 10 MG tablet
20 mg PO DAILY
Prolia 60 mg/mL Syringe
60 mg SC [id number]
citalopram 10 mg Tablet
10 mg PO DAILY
cholecalciferol (vitamin D3) [Vitamin D3] 25 mcg (1,000 unit) Tablet
25 mcg PO DAILY
atorvastatin [Lipitor] 20 mg Tablet
20 mg PO DAILY
levothyroxine [Synthroid] 75 mcg Tablet
75 mcg PO DAILY
dicyclomine 20 mg Tablet
20 mg PO DAILY
ondansetron HCl 4 mg Tablet
4 mg PO Q6HPRN PRN (Reason: nausea)
oxycodone 5 mg Tablet
5 mg PO Q6HPRN PRN (Reason: severe pain)
acetaminophen [Tylenol Extra Strength] 500 mg Tablet
1,000 mg PO BID
docusate sodium [Colace] 100 mg Capsule
100 mg PO DAILY
amlodipine 2.5 mg tablet
2.5 mg PO DAILY Qty: 14 1RF
aspirin 81 mg tablet,chewable
81 mg PO BID Qty: 60 0RF
polyethylene glycol 3350 [HealthyLax] 17 gram Powder In Packet
17 g PO DAILY Qty: 14 0RF
pantoprazole 40 mg tablet,delayed release (DR/EC)
40 mg PO BID Qty: 60 0RF
Referrals:
Montana Graves MD [Family Provider] -
Interventions
Interventions:
*Risk Screen - Suicide Last Done: 02/12/24 20:40
*General Assessment Last Done: 02/12/24 20:40
*Neglect/Abuse Screening Last Done: 02/12/24 20:40
Discharge Date and Time
Print Language: SLOVENIAN
[2024-02-12] MEDS: PROTONIX IV 40 MG IV (21:41)
[2024-02-12 21:54] VITALS: BP 172/96
[2024-02-12 21:59] LABS: % Basophils 0.1 % (0-2); % Immature Granulocytes 0.7 % (0-0.5); % Lymphocytes 10.4 % (20.5-51.1); % Monocytes 10.3 % (1.7-9.3); % Neutrophils 78.5 % (42.2-75.2); Absolute Immature Granulocytes 0.1 10^3/uL (0-0.05); Absolute Lymphocytes 1.4 10^3/uL (1.2-3.4); Absolute Monocytes 1.4 10^3/uL (0.1-0.6); Absolute Neutrophils 10.6 10^3/uL (1.4-6.5); Hematocrit 33.3 % (37.0-47.0); Hemoglobin 11.5 g/dL (12.0-16.0); Mean Corp Hgb Conc. 34.5 g/dL (33.0-37.0); Mean Corpuscular Volume 86.9 fL (81.0-99.0); Mean Platelet Volume 10.4 fL (7.4-10.4); Nucleated Red Blood Cells % 0 %; Platelet Count 293 10^3/uL (130-400); Red Blood Cell Count 3.83 10^6/uL (4.20-5.40); Red Cell Dist. Width 12.6 % (11.5-14.5); White Blood Cell Count 13.5 10^3/uL (4.8-10.8)
[2024-02-12 22:00] VITALS: BP 180/95
[2024-02-12] MEDS: DILAUDID 0.5 MG IV (22:10)
[2024-02-12 22:16] LABS: ALT (SGPT) 24 U/L (0-35); AST (SGOT) 42 U/L (14-36); Albumin 4.2 g/dl (3.5-5.0); Alkaline Phosphatase 67 U/L (38-126); Blood Urea Nitrogen 25 mg/dl (7-17); Calcium 9.8 mg/dl (8.4-10.2); Carbon Dioxide 22 mmol/L (22-30); Chloride 98 mmol/L (98-107); Glucose 164 mg/dl (70-99); Lipase 41 U/L (23-300); Potassium 3.7 mmol/L (3.5-5.1); Sodium 134 mmol/L (135-145); Total Bilirubin 1.2 mg/dl (0.2-1.3); Total Protein 6.8 g/dl (6.3-8.2); eGFR > 60.00
[2024-02-12 22:29] VITALS: BP 180/86
[2024-02-12] MEDS: NSS 1000 IV (23:11)
[2024-02-12] MEDS: ASPIRIN 325 MG PO (23:14)
--- NOTE | 2024-02-12 23:15 | W.PN.UPDATE ---
Update Note
Progress Note Update
This is an addendum to H&P written by OXYGRAPH OPERATOR Deya Hammond
I saw and examined the patient.
The OXYGRAPH OPERATOR's note was reviewed and I agree with the note.
Comment:
Ms. Sintia Bell is a 78 yo woman with hx nephrolithiasis, essential HTN, recent left TKA (02/09/24), admission earlier today with discharge this afternoon for abdominal pain (suspected NSAID gastritis) presents to the ER with return of nausea this
evening post waking up from a nap.
Triage VS: T 97.9, P 114, RR 15, BP 155/105, SpO2 97%
On exam patient is awake, conversant. Abdomen soft, non-tender, non-distended. CV: S1, S2, RRR. chest clear. no LE swelling.
LABS: WBC 13.5, Hg 11.5, PLT 293, Na 134, K+ 3.7, CO2 22, BUN 25, Cr 0.9, Glucose 164, T. Bili 1.2, AST 42, ALT 24, Alk Phos 67, Trop 0.230, Lipase 41
EKG: NSR @ 75, no significant change from prior
Chest/Abdomen X-Ray:
IMPRESSION:
Nonobstructive bowel gas pattern.
MAR: asa 325, maalox, dilaudid x 2, IVF, IV Zofran, IV Protonix
Abdominal pain and Nausea
concern for NSAID-related Gastritis
Troponin elevation
-imaging from earlier this morning included CT Abdomen/Pelvis with nephrolithiasis, possible mild cholecystitis followed by US which was unremarkable
-patient with intermittent nausea post-op and now with finding of elevated Troponin. Likely non-WA related Troponin elevation from stress/pain but also possible that nausea is an anginal equivalent
-admit to telemetry
-trend Troponin and consult cardiology
-continue IV Protonix and re-consult GI
-keep NPO for now in case stress test recommended
-s/p asa 325 in the ER
-continue asa 81 BID for DVT PPx
remainder of plan per H&P
[2024-02-12 23:16] VITALS: BP 129/75
--- NOTE | 2024-02-12 23:21 | HPS.HSE ---
Family Physician
-
Family Physician: Montana Graves
Chief Complaint
-
Abdominal discomfort
History of Present Illness
Patient is a 78-year-old female with past medical history significant for nephrolithiasis, hypertension and recent TKA who is presenting to [facility] for evaluation of
Medical History
Past Medical History
Past Medical History: Reports Other
Additional Past Medical History:
Hypertension
Hypothyroidism
Nephrolithiasis
IBS
Past Surgical History: Reports Other
Additional Past Surgical History:
Left TKA (02/09/24)
Lithotripsies
Ureteroscopy / Stent Placement
Social History
Tobacco: Former Smoker (quit over 30 years ago, approx. 20 pack year history)
Alcohol: Occasional
Drug: None
Personal:
Living: With Family
Family History
Family History: Not pertinent
Allergies / Home Medications
Allergies reflects when Allergies were last updated in [facility].
Home Medications with original date entered in [facility]
Allergy/Medication List:
Allergies
Allergy/AdvReac Type Severity Reaction Status Date / Time
No Known Allergies Allergy Verified 02/11/24 21:59
Home Medications
lisinopril 10 mg tablet 20 mg PO DAILY Blood Pressure 12/25/10
denosumab 60 mg/mL subcutaneous syringe (Prolia) 60 mg SC [id number] osteoporosis 10/07/23
cholecalciferol (vitamin D3) 25 mcg (1,000 unit) tablet (Vitamin D3) 25 mcg PO DAILY Supplement 10/09/23
citalopram 10 mg tablet 10 mg PO DAILY depression/anxiety 10/09/23
atorvastatin 20 mg tablet (Lipitor) 20 mg PO DAILY High Cholesterol 10/12/23
dicyclomine 20 mg tablet 20 mg PO DAILY Gastrointestinal Issue 10/12/23
levothyroxine 75 mcg tablet (Synthroid) 75 mcg PO DAILY Thyroid 10/12/23
acetaminophen 500 mg tablet (Tylenol Extra Strength) 1,000 mg PO BID pain 02/12/24
amlodipine 2.5 mg tablet 2.5 mg PO DAILY #14 tabs 02/12/24
aspirin 81 mg chewable tablet 81 mg PO BID #60 tabs 02/12/24
docusate sodium 100 mg capsule (Colace) 100 mg PO DAILY Constipation 02/12/24
ondansetron HCl 4 mg tablet 4 mg PO Q6HPRN PRN nausea 02/12/24
oxycodone 5 mg tablet 5 mg PO Q6HPRN PRN severe pain 02/12/24
pantoprazole 40 mg tablet,delayed release 40 mg PO BID #60 tabs 02/12/24
polyethylene glycol 3350 17 gram oral powder packet (HealthyLax) 17 g PO DAILY #14 ea 02/12/24
Review of Systems
-
History Source: Patient
Constitutional: Reports No Symptoms
EENT: Reports No Symptoms
Respiratory: Reports No Symptoms
Cardiac: Reports No Symptoms
Abdomen/GI: Reports Abdominal Pain, Nausea and Vomiting
: Reports No Symptoms
Musculoskeletal: Reports Joint Pain (mild pain, R TKA 02/09/2024, dressing in place)
Skin: Reports No Symptoms
Neurological: Reports No Symptoms
Endocrine: Reports No Symptoms
Hematologic/Lymphatic: Reports No Symptoms
Psych: Reports No Symptoms
Physical Exam
Vital Signs
Vital Signs
Temp Pulse Resp BP Pulse Ox
97.9 F 114 15 155/105 97
02/12/24 20:40 02/12/24 20:40 02/12/24 20:40 02/12/24 20:40 02/12/24 20:40
Physical Exam
General: Well Developed, Well Nourished, No Apparent Distress, Comfortable and Conversant
HEENT: NormoCephalic, Moist mucous membranes, Atraumatic, PERRLA, [place] Conjunctivae, Nose Appears Normal and Ears Appear Normal
Respiratory: Clear and Non Labored Respirations; No Wheezes, Rales, Rhonchi or Crackles
Cardiac: S1/S2 and Regular Rhythm; No Murmur, Rub or Gallop
GI: Soft, Non Tender, Non Distended and Normal Bowel Sounds; No Organomegaly
Rectal: Deferred by Provider
Genito-urinary: Deferred by me
Musculoskeletal: No Clubbing, No Cyanosis and Edema, Right Lower Extremity (RLE +1-2 edema, s/p R TKA 02/09/2024); No Edema, Left Upper Extremity, Edema, Right Upper Extremity or Edema, Left Lower Extremity
Skin: No Rash
Neuro: Nonfocal/grossly intact
Hematologic/Lymphatic: No Lymphadenopathy
Psych: Calm and Intact Judgment/Insight
Laboratory Results
-
02/12/24 21:54
02/12/24 21:54
Laboratory Results
Total Bilirubin 1.2 mg/dl (0.2-1.3) 02/12/24 21:54
AST 42 U/L (14-36) H 02/12/24 21:54
ALT 24 U/L (0-35) 02/12/24 21:54
Alkaline Phosphatase 67 U/L (38-126) 02/12/24 21:54
Troponin I 0.230 ng/ml H* 02/12/24 21:54
Lipase 41 U/L (23-300) 02/12/24 21:54
Data Reviewed
-
Diagnostic Radiology: Report Reviewed by me (CXR/Abd x-ray: Nonobstructive bowel gas pattern.)
CT Scan: Report Reviewed by me (Abd CT: Gallbladder is mildly distended, and there is gallbladder wall thickening and gallbladder wall edema. Findings are suggestive of mild cholecystitis, consider abdominal ultrasound. Nephrolithiasis on each side,
without hydronephrosis. No significant change compared to prior study.)
Ultrasound: Report Reviewed by me (Abd: Unremarkable right upper quadrant ultrasound, as detailed above. No sonographic evidence for cholelithiasis or acute cholecystitis.)
Medical Tests (Nuc Med, Echo, EKG etc): Report Reviewed by me (EKG: NORMAL SINUS RHYTHM WITH SINUS ARRHYTHMIA)
Lab Data: Labs Reviewed by me (WBC 135, Neut 78.5, Trop 0.230)
Impression/Plan
-
IMPRESSION/PLAN:
#Abdominal pain/intractable nausea
- pt admitted less than 24 hours ago for intractable n/v and discharged
- Abdominal US: Unremarkable right upper quadrant ultrasound, as detailed above. No sonographic evidence for cholelithiasis or acute cholecystitis
- Abd CT: Nonobstructive bowel gas pattern.
- IV Protonix BID
- Antiemetics
#Elevated Troponin
- Troponin 0.230
- EKG: NORMAL SINUS RHYTHM WITH SINUS ARRHYTHMIA
- Consult Cardiology
- Echo done 01/12/2024
- Trend Troponin with EKG
#s/p L TKA
- L TKA on 02/09/24.
- Patient states doing well postop with pain and therapy
- Continue PT / OT.
- Maintain current dressing.
#Benign Hypertension
- Continue lisinopril with holding parameters for now.
#Hypothyroidism
- Continue levothyroxine
#History of Recurrent Nephrolithiasis
- Last episode September
- CT: 1. Gallbladder is mildly distended, and there is gallbladder wall thickening and gallbladder wall edema. Findings are suggestive of mild cholecystitis, consider abdominal ultrasound.
2. Nephrolithiasis on each side, without hydronephrosis. No significant change compared to prior study.
Full Code
DVT Prophylaxis: ASA 81mg BID
[2024-02-13] VITALS (14 sets, daily range): BP systolic 106–188; BP diastolic 60–119; PULSE 109–111; O2SAT 100; BMI 25.0
--- NOTE | 2024-02-13 02:06 | PTCARENOTE ---
received patient from the ED. AAOx3. patient states feeling much better. denies any nausea. denies any cp/sob. SR-ST on [id number]. bp 143/82. abdomen soft/non tender. educated patient to inform RN with any changes. IVF running per order. recent
Left knee surgery-dressing intact. knee swelling noted/ecchymotic. patient steady on her feet with cane. states using a walker at home. walker provided in the room. patient using own SCDs. reviewed plan of care and verbalized understanding. call
arun within reach.
[2024-02-13 02:47] LABS: Troponin I 0.266 ng/ml
[2024-02-13] MEDS: COMPAZINE 5 MG IV ×2 (06:11→22:53)
[2024-02-13] MEDS: MAALOX 30 ML PO (06:11)
--- NOTE | 2024-02-13 06:17 | PTCARENOTE ---
patient called RN complaining of feeling nauseous. patient states feeling anxious as well. appears anxious, restless in bed. 'i get all worked up.' HR and BP elevated- HR 100s, bp 165/83. patient requesting cocktail she received in ED; that helped
her. updated Beronica Merino NP. Compazine IV and Maalox ordered and given-see mar. comfort measures provided.
[2024-02-13 07:51] LABS: Hematocrit 31.7 % (37.0-47.0); Mean Corp Hgb Conc. 34.7 g/dL (33.0-37.0); Mean Corpuscular Hgb 31.6 pg (27.0-31.0); Mean Corpuscular Volume 91.1 fL (81.0-99.0); Mean Platelet Volume 10.4 fL (7.4-10.4); Platelet Count 262 10^3/uL (130-400); Red Blood Cell Count 3.48 10^6/uL (4.20-5.40); Red Cell Dist. Width 12.6 % (11.5-14.5); White Blood Cell Count 12.5 10^3/uL (4.8-10.8)
[2024-02-13 08:13] LABS: ALT (SGPT) 22 U/L (0-35); AST (SGOT) 36 U/L (14-36); Albumin 3.7 g/dl (3.5-5.0); Alkaline Phosphatase 61 U/L (38-126); Blood Urea Nitrogen 23 mg/dl (7-17); Calcium 8.7 mg/dl (8.4-10.2); Carbon Dioxide 23 mmol/L (22-30); Chloride 102 mmol/L (98-107); Estimated Creatinine Clearance 49 ml/min; Glucose 120 mg/dl (70-99); Potassium 3.7 mmol/L (3.5-5.1); Sodium 137 mmol/L (135-145); Total Bilirubin 0.9 mg/dl (0.2-1.3); Total Protein 6.1 g/dl (6.3-8.2); eGFR > 60.00
--- NOTE | 2024-02-13 08:15 | CON.CAR ---
Addendum entered and electronically signed by Blake Duvall MD 02/13/24 13:51:
I saw and examined the patient.
The Director Of Quantitative Research's note was reviewed and I agree with the note.
Comment:
GEN: No distress, awake, Ox3
HEENT: supple, anicteric, mmm
LUNGS: CTA, no wheezes/rales
CV: Reg, S1/S2, 1/6 syst LSB, no gallop
ABD: soft, BS+, NT/ND
EXT: + L leg edema
NEURO: Gross non-focal
SKIN: No rash
Plan:
78-year-old female who had left total knee arthroplasty on February 09, 2024 at outpatient surgery center with past medical history of hypertension, hyperlipidemia and hypothyroidism presents with nausea, abdominal pain, and epigastric pain. We are
asked to evaluate her regarding her troponin 0.2.
She denies any chest pains or shortness of breath. Her heart rate is controlled. She continues to have abdominal pain and nausea.
Her EKG is overall stable with normal sinus rhythm with a left anterior fascicular block. This is unchanged.
We repeated an echocardiogram today which shows normal LV and RV function.
I suspect this is a non-PA troponin elevation.
Continue to treat abdominal symptoms. Continue aspirin.
Continue amlodipine, lisinopril, and atorvastatin.
Will arrange follow-up to consider stress testing as outpatient.
Original Note:
Consultation
Consultation Request
Date/Time Consultation Performed: 02/13/24
Requesting Provider: Dr. Chen
Performing Provider: Soraya Feliz PA-C for Dr. Duvall
Reason for Consultation: elevated troponin
Medical History
-
Chief Complaint: abd pain, N/V
History of Present Illness:
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 She reports
everything went well with her surgery to her knowledge. She was cleared preoperatively by cardiology with echocardiogram with normal EF and no significant valvular disease. She reports prior to her surgery she was able to walk 4 to 5 miles a day.
She was started on aspirin, Celebrex, dexamethasone after her knee surgery. She was taking mostly tylenol for pain and 'anti-inflammatories.' She had started with central abd pain Friday evening which progressed with N/V. She presented to ER
early on and was diagnosed with suspected NSAID gastritis and discharged. She presented back to [facility] with continued abd pain and N/V. Denies fevers, chills. Denies chest discomfort, SOB, palpitations, radiation of pain to back, neck, jaw,
arms, lightheadedness. Denies worsening of pain with ambulation. Reports feeling as though she would feel better if she had a bowel movement. Reports pain feels like a rolling nauseous pain. Trop 0.23 resulting in cardiology consultation.
PMH:
s/p L TKA 02/09/24
HTN
HLD
LAFB
Hypothyroidism
History of nephrolithiasis
Past Medical History
Past Medical History: Other (in HPI)
Social History
Tobacco: Former Smoker
Employment: Retired
Family History
Family History: CAD and Cancer
Allergies / Home Medications
Allergy/AdvReac Type Severity Reaction Status Date / Time
No Known Allergies Allergy Verified 02/11/24 21:59
�Medication �Instructions �Recorded �Confirmed �Type
lisinopril 10 mg tablet 20 mg PO DAILY Blood Pressure 12/25/10 02/12/24 History
denosumab 60 mg/mL subcutaneous 60 mg SC [id number] osteoporosis 10/07/23 02/12/24 History
syringe (Prolia)
cholecalciferol (vitamin D3) 25 25 mcg PO DAILY Supplement 10/09/23 02/12/24 History
mcg (1,000 unit) tablet (Vitamin
D3)
citalopram 10 mg tablet 10 mg PO DAILY depression/anxiety 10/09/23 02/12/24 History
atorvastatin 20 mg tablet (Lipitor) 20 mg PO DAILY High Cholesterol 10/12/23 02/12/24 History
dicyclomine 20 mg tablet 20 mg PO DAILY Gastrointestinal 10/12/23 02/12/24 History
Issue
levothyroxine 75 mcg tablet 75 mcg PO DAILY Thyroid 10/12/23 02/12/24 History
(Synthroid)
acetaminophen 500 mg tablet 1,000 mg PO BID pain 02/12/24 02/12/24 History
(Tylenol Extra Strength)
amlodipine 2.5 mg tablet 2.5 mg PO DAILY #14 tabs 02/12/24 02/12/24 Rx
aspirin 81 mg chewable tablet 81 mg PO BID #60 tabs 02/12/24 02/12/24 Rx
docusate sodium 100 mg capsule 100 mg PO DAILY Constipation 02/12/24 02/12/24 History
(Colace)
ondansetron HCl 4 mg tablet 4 mg PO Q6HPRN PRN nausea 02/12/24 02/12/24 History
oxycodone 5 mg tablet 5 mg PO Q6HPRN PRN severe pain 02/12/24 02/12/24 History
pantoprazole 40 mg tablet,delayed 40 mg PO BID #60 tabs 02/12/24 02/12/24 Rx
release
polyethylene glycol 3350 17 gram 17 g PO DAILY #14 ea 02/12/24 02/12/24 Rx
oral powder packet (HealthyLax)
Review of Systems
-
History Source: Patient
All other systems: Negative unless noted
Physical Exam
Vital Signs
Temp Pulse Resp BP Pulse Ox
99.8 F 93 20 143/82 97
02/13/24 06:39 02/13/24 02:00 02/13/24 06:39 02/13/24 01:32 02/13/24 06:39
Lab Results
02/13/24 07:41
02/13/24 07:41
Troponin I Cancelled 02/13/24 02:00
Physical Exam
General: Pain and Other (nauseous)
HEENT: Normocephalic, Anicteric and Moist Mucous Membranes
Respiratory: Clear and Non Labored Respirations
Cardiac: S1/S2 and Regular Rhythm
GI: Soft, Non Distended and Tender (central abdomen)
Musculoskeletal: No Clubbing, No Cyanosis and No Edema
Skin: Warm and Dry
Neuro: AO x 3
Impression / Plan
-
Primary Calibration Technician: Dr. Haq
Assessment:
Presentation with abd pain, N/V
Elevated troponin
s/p L TKA 02/09/24
Post operative anemia
HTN
HLD
LAFB
Hypothyroidism
History of nephrolithiasis
ECHO 01/12/24: EF 62%, no regional wall motion abnormalities noted, mild MR
Plan:
-Patient with 2 ER visits in 24 hours for abdominal pain and nausea vomiting. There was initial concern for possible cholecystitis by CT, however ultrasound was negative. She was diagnosed with suspected NSAID gastritis and discharged, however
only to return several hours later with continued symptoms. Cardiology consulted as troponin elevated at 0.23, peaked at 0.26.
-Patient reports no chest pain or shortness of breath
-Symptoms appear atypical for angina
-Recent echo with results as above
-Continue aspirin as able
-Repeat limited echo to reassess EF and wall motion
-Troponins flat. EKGs without evidence of acute ischemic changes.
-in SR on review of tele
-Chest/abdomen x-ray without acute cardiopulmonary abnormalities noted
-GI to reevaluate patient
-Would consider for outpatient stress testing once recovered. will arrange OP cardiac follow up
-Discussed with nursing
Data Reviewed
-
EKG: Tracing Personally Visualized and interpreted
Radiology: Report Reviewed by me
CT Scan: Report Reviewed by me
Medical Tests (Nuc Med, Echo etc): Report Reviewed by me
Labs: Labs Reviewed by me
Old Records: Reviewed
[2024-02-13 08:20] LABS: Troponin I 0.242 ng/ml
[2024-02-13] MEDS: LIPITOR 20 MG PO (10:21)
[2024-02-13] MEDS: NORVASC 2.5 MG PO (10:21)
[2024-02-13] MEDS: CELEXA 10 MG PO (10:21)
[2024-02-13] MEDS: ZESTRIL 20 MG PO (10:22)
[2024-02-13] MEDS: COLACE 100 MG PO (10:22)
[2024-02-13] MEDS: VITAMIN D3 (cholecalciferol) 25 MCG PO (10:22)
[2024-02-13] MEDS: SYNTHROID 75 MCG PO (10:23)
[2024-02-13] MEDS: MIRALAX 17 GRAMS PO (10:23)
[2024-02-13] MEDS: BENTYL 20 MG PO (10:23)
[2024-02-13] MEDS: NSS (PRESERVATIVE FREE) 10 ML IV ×2 (10:24→21:18)
[2024-02-13] MEDS: PROTONIX IV 40 MG IV ×2 (10:24→21:17)
--- NOTE | 2024-02-13 11:04 | CARDSERVLU ---
Echocardiogram with [facility] completed after protocol screening completed. Allergies verified.
Patent IV site: _Left accessory cephalic 20 G PC____
IV site flushed with 0.9% NaCl pre and post administration.
Diluted bolus method utilized to enhance visualization of ventricular miller.
Total volume given: _3___ mL
Patient tolerated all procedures well without complications.
--- NOTE | 2024-02-13 12:10 | CM ---
Chart reviewed. Patient is independent of ADLS, lives with her ex in a 2 [address], 2-3 RYAN, ambulates with a RW. Patient was scheduled for outpatient PT today. Plan is for the patient to return home.
[2024-02-13 12:28] LABS: Glycohemoglobin (HgbA1c) 5.4 % (4.0-5.6)
[2024-02-13] MEDS: DILAUDID 0.25 MG IV (13:22)
--- NOTE | 2024-02-13 13:32 | W.PN.GI.CBS2 ---
Today's Communication / Plan
-
Plan:
Obstruction series without any evidence of ileus or stool burden. Patient does feel she has to move her bowels but is not able to evacuate, last bowel movement 2 days ago.
Will give fleets enema to clear the left colon continue MiraLAX 17 g daily after.,
Currently on clear liquid diet, advance as tolerated.
Limit narcotics, explained to the patient that it well versed in the nausea and vomiting and also constipation.
She has been on dicyclomine for IBS symptoms, I would hold that for now. Dicyclomine will also make constipation worse.
Continue pantoprazole twice daily
Trend hemoglobin
Follow-up with outpatient GI (Dr. Adrianne Mccormick)
Assessment / Plan
-
78-year-old female with past medical history of hypertension, hyperlipidemia, hypothyroidism, colon polyps (follows with Dr. Adrianne Mccormick at [facility] ), history of hepatitis C status posttreatment and eradication, kidney stones, osteoporosis with left
knee osteoarthritis status post left knee TKA on 02/09/2024 presents to the emergency room with acute onset of epigastric pain, nausea and vomiting. Asked to evaluate for the same. The patient had outpatient surgery on 02/09/2024 at outside
surgery center. The patient states that all went well and she was discharged to home. She states that night she ate very lightly with avocado toast. Her medications that she was taking included aspirin 325 mg daily, oxycodone 5 mg however she
states she did not take these, dexamethasone 4 mg every 12 hours for 3 days, Celebrex 100 mg twice daily for 15 days as well as Tylenol 2 capsules twice a day. The patient states on Friday morning she was doing well. She ate and egg and a piece
of toast. By dinner she was not feeling so well she ate a very small amount of dinner. Her stomach started to ache a little bit. Friday morning she states she had stomach discomfort that was in the epigastric area. She states this was dull,
gnawing. She states her niece came over from 12 noon to 4 PM she still had a stomach discomfort and was unable to eat. She then states that her partner Armagh made dinner. She was only able to eat a small amount and then she vomited which was
bilious in nature. She proceeded to have more abdominal pain that evening at 1 point she called orthopedic surgeon he instructed her to take some Tums. She promptly vomited this up that was frothy in nature. She never had any hematemesis or
coffee grounds. At that point because of persistent pain nausea and vomiting she proceeded to come to the emergency room. She had a bowel movement the day of surgery and yesterday. This was solid. Rectal exam performed by myself in the emergency
room was a brown/orange bowel movement that was negative for occult blood. I reviewed her prehospitalization lab work from outpatient as well as current lab work. The patient denies any fevers, chills, melena, hematochezia, dysphagia or dyne
aphasia. The patient has no early satiety or unintentional weight loss. She has never had an upper endoscopy before. She states she usually has soft to loose bowel movements and does follow with outpatient GI. She denies any family history
gastrointestinal malignancy or inflammatory bowel disease. She does not take any GI prophylaxis. WBC 14.5, hemoglobin 11.2, hematocrit 31.7, platelet count 249, sodium 134, potassium 4.2, chloride 100, CO2 21, BUN 24, creatinine 0.9, glucose 148,
total bilirubin 0.8, AST 42, ALT 21, alk phos 69, albumin 4.1, lipase 87. Of note patient is on dexamethasone at the present time. Patient is afebrile. Outpatient labs performed on 01/12/2024 showed WBC 5.4, hemoglobin 13.9, hematocrit 42.0
platelets 270., Labs 10/25/2023 sodium 141, potassium 4.5, BUN 23, creatinine 0.81.
Past Medical History
Past Medical History: HTN, Hypercholesterolemia and Other (Hepatitis C status posttreatment eradication, kidney stones, osteoporosis, osteoarthritis)
Past Surgical History: Gynecological (Hysterectomy) and Other (Left knee replacement, lithotripsy x 2, salivary gland removed, mastoid surgery)
Social History
Tobacco: Former Smoker
Alcohol: Occasional (Rare alcohol few times a year, none in many months)
Drug: None
Personal:
Living: With Family
Family History
Family History: Other (No family history of gastrointestinal malignancy or IBD)
Allergies / Home Medications
Allergy/AdvReac Type Severity Reaction Status Date / Time
No Known Allergies Allergy Verified 02/11/24 21:59
�Medication �Instructions �Recorded
lisinopril 10 mg tablet 20 mg PO DAILY 12/25/10
denosumab 60 mg/mL subcutaneous 60 mg SC [id number] 10/07/23
syringe (Prolia)
cholecalciferol (vitamin D3) 25 25 mcg PO DAILY 10/09/23
mcg (1,000 unit) tablet (Vitamin
D3)
citalopram 10 mg tablet 10 mg PO DAILY 10/09/23
atorvastatin 20 mg tablet (Lipitor) 20 mg PO DAILY 10/12/23
dicyclomine 20 mg tablet 20 mg PO TIDPRN PRN spasms 10/12/23
levothyroxine 75 mcg tablet 75 mcg PO DAILY 10/12/23
(Synthroid)
aspirin 325 mg tablet 325 mg PO DAILY 02/12/24
celecoxib 100 mg capsule 100 mg PO BIDPRN PRN mild pain 02/12/24
ondansetron HCl 4 mg tablet 4 mg PO Q6HPRN PRN nausea 02/12/24
oxycodone 5 mg tablet 5 mg PO Q6HPRN PRN severe pain 02/12/24
Review of Systems
-
All other systems: A 12 pt ROS was Negative except as stated above in HPI
Vital Signs
Temp Pulse Resp BP Pulse Ox
98.7 F 119 19 164/105 94
02/12/24 08:25 02/12/24 08:19 02/12/24 08:19 02/12/24 08:21 02/12/24 08:25
WBC 14.5 10^3/uL (4.8-10.8) H 02/11/24 22:03
Hgb 11.2 g/dL (12.0-16.0) L 02/11/24 22:
Hct 31.7 % (37.0-47.0) L 02/11/24 22:03
MCV 89.5 fL (81.0-99.0) 02/11/24 22:
Plt Count 249 10^3/uL (130-400) 02/11/24:
Absolute Neuts (auto) 11.4 10^3/uL (1.4-6.5) H 02/11/24 22:03
Sodium 134 mmol/L (135-145) L 02/11/24:
Potassium 4.2 mmol/L (3.5-5.1) 02/11/24:
Chloride 100 mmol/L (98-107) 02/11/24:
Carbon Dioxide 21 mmol/L (22-30) L 02/11/24 22:
BUN 24 mg/dl (7-17) H 02/11/24 22:03
Creatinine 0.9 mg/dL (0.6-1.0) 02/11/24:
Calcium 9.5 mg/dl (8.4-10.2) 02/11/24:
Total Bilirubin 0.8 mg/dl (0.2-1.3) 02/11/24:
AST 42 U/L (14-36) H 02/11/24 22:03
ALT 21 U/L (0-35) 02/11/24 22:03
Alkaline Phosphatase 69 U/L (38-126) 02/11/24 22:
Lipase 87 U/L (23-300) 02/11/24 22:03
Diagnostic Image Results: CT Abdomen pelvis with IV contrast only:IMPRESSION:1. Gallbladder is mildly distended, and there is gallbladder wall thickening and gallbladder wall edema. Findings are suggestive of mild cholecystitis, consider abdominal
ultrasound.2. Nephrolithiasis on each side, without hydronephrosis. No significant change compared to prior study.Findings are in agreement with the after hours [facility] radiology report.
Ultrasound abdomen:Impression:1. Unremarkable right upper quadrant ultrasound, as detailed above. No sonographic evidence for cholelithiasis or acute cholecystitis.
Prior GI Procedures: EGD: Never had
Colonoscopy: Patient states she had a colonoscopy (with Dr. Adrianne Mccormick this year) had 4 polyps removed.
She is concerned status post MRI and then you know what cellular colonoscopy 08/10/2020 ([facility]): - Diverticulosis in the sigmoid colon, in the transverse colon and in the ascending colon. - One 2 mm polyp in the sigmoid colon, removed with a
cold biopsy forceps. Resected and retrieved. - One 3 mm polyp in the transverse colon, removed with a cold snare. Resected and retrieved. - One 2 mm polyp at the hepatic flexure, removed with cold biopsy forceps. Resected and
retrieved. - One 2 mm polyp in the cecum, removed with a cold biopsy forceps. Resected and retrieved. - The examined portion of the ileum was normal.
Assessment / Plan
-
78-year-old female with past medical history of hypertension, hyperlipidemia, hypothyroidism, colon polyps (follows with Dr. Adrianne Mccormick at [facility] ), history of hepatitis C status posttreatment and eradication, kidney stones, osteoporosis with left
knee osteoarthritis status post left knee TKA on 02/09/2024 presents to the emergency room with acute onset
of epigastric pain, nausea and vomiting.
Patient with epigastric pain initially but with mid and lower abdominal discomfort with nausea and vomiting in the setting of constipation, decreased p.o. intake, aspirin 325 mg daily, dexamethasone 4 mg twice daily, Celebrex 100 mg twice daily
without GI prophylaxis.Hemoglobin is decreased without signs of hematemesis or coffee grounds. Stool is negative for occult blood. Ultrasound of the abdomen unremarkable for cholelithiasis or acute cholecystitis.
Impression:
Epigastric discomfort--> likely gastritis given Ortho meds (aspirin 325 mg daily for 30 days, dexamethasone 4 mg twice daily for 3 days, Celebrex 100 mg twice daily for 15 days)n/vomiting --> as above
Recent slow transit constipation with baseline constipation--> likely worsened secondary to pain medication, slowly improved.
Anemia-> no signs of active GI bleeding. Likely secondary to recent surgery
Plan:
Obstruction series without any evidence of ileus or stool burden. Patient does feel she has to move her bowels but is not able to evacuate, last bowel movement 2 days ago.
Will give fleets enema to clear the left colon continue MiraLAX 17 g daily after.,
Currently on clear liquid diet, advance as tolerated.
Limit narcotics, explained to the patient that it well versed in the nausea and vomiting and also constipation.
She has been on dicyclomine for IBS symptoms, I would hold that for now. Dicyclomine will also make constipation worse.
Continue pantoprazole twice daily
Trend hemoglobin
Follow-up with outpatient GI (Dr. Adrianne Mccormick)
Subjective
Subjective
Date of Service: February 13, 2024
Patient was discharged home yesterday but came back with complaints of mid abdominal discomfort, nausea and vomiting of clear material. She reports that her last bowel movement was 2 days ago and small amount of solid stool with incomplete
evacuation. No fevers or chills.
Objective
Data Reviewed
Laboratory Data:
Laboratory Results
02/13/24 07:41
02/13/24 07:41
Laboratory Results
Total Bilirubin 0.9 mg/dl (0.2-1.3) 02/13/24 07:41
AST 36 U/L (14-36) 02/13/24 07:41
ALT 22 U/L (0-35) 02/13/24 07:41
Alkaline Phosphatase 61 U/L (38-126) 02/13/24 07:41
Lipase 41 U/L (23-300) 02/12/24 21:54
Vital Signs and I&O:
Vital Signs
Temp Pulse Resp BP Pulse Ox
98.9 F 90 18 181/94 96
02/13/24 12:03 02/13/24 12:45 02/13/24 12:03 02/13/24 12:04 02/13/24 12:04
I&O
02/12/24 02/13/24 02/14/24
06:59 06:59 06:59
Intake Total 480 / 480
Balance 480 / 480
Physical Exam
Physical Exam
GI: Soft, Non Distended, Tender (Mild discomfort in the mid abdomen without any guarding or rigidity) and Normal Bowel Sounds
--- NOTE | 2024-02-13 14:32 | W.PN.UPDATE ---
Update Note
Progress Note Update
echo unchanged from prior 01/12/24. reviewed results with patient this afternoon. trops remain flat in 0.2 range. she has improved pain after dilaudid. she is for enema this afternoon, GI following. will plan to follow peripherally. OP cardiac follow
up arranged and can discuss stress testing at that time. d/w hospitalist, planned to transfer to tele.
[2024-02-13] MEDS: FLEET PHOSPHATE ENEMA-ADULT 135 ML RECTAL (17:06)
[2024-02-13] MEDS: APRESOLINE 5 MG IV (17:06)
--- NOTE | 2024-02-13 17:30 | W.PN.HOSP.TC ---
Today's Communication/Plan
-
Still with significant GI symptoms
Fleets enema followed by miralax
Assessment / Plan
Assessment / Plan
Physical Exam
General: Other (78y F in no acute distress.)
HEENT: Moist mucous membranes
Respiratory: Clear to Auscultation Bilaterally
Cardiac: S1/S2 and Regular Rhythm
GI: Soft, Non Distended and Normal Bowel Sounds. Mild epigastric tenderness.
Musculoskeletal: No Cyanosis and Other (LLE with edema / ecchymosis s/p recent surgery. Occlusive dressing in place with minimal strikethrough.)
Neuro: AAO x 3
Assessment/Plan
78y F with gastritis, N/V. Had TKA done Friday ([facility]) and presented with N/V, anorexia, GI upset. Asked to admit for acute cholecystitis (which [facility] did read on CT) which seemed unlikely. US done and is completely normal - no cholecystitis.
IV PPI, hold NSAIDs / decrease ASA.
Intractable N/V, Abdominal Pain
-Obstruction series without any evidence of ileus or stool burden but patient does feel she has to move her bowels but is not able to evacuate, last bowel movement 2 days ago.
-Fleets enema to clear the left colon continue MiraLAX 17 g daily after
-Advance diet as tolerated.
-Limit narcotics
-Stop home Dicyclomine as it can make constipation worse
-Continue pantoprazole twice daily
Elevated troponin -- suspected non-VA troponin elevation
- Cardiology was consulted on admission, appreciate their evaluation and recommendations
- Repeat an echocardiogram showed normal LV and RV function.
- Continue aspirin, amlodipine, lisinopril, and atorvastatin
Status post Left TKA
- Patient had L TKA at [facility] on 02/09/24.
- Doing very well in regards to pain control / mobility post-op.
- Continue PT / OT.
- Maintain current dressing.
- Discussed patient's case recently with on-call orthopedics Dr. Serrano as well as patient's surgeon Dr. Lee
- Try to limit meds that would contribute to GI upset.
Post-Op Blood Loss Anemia
Leukocytosis -- suspected from recent surgery -- no signs or symptoms of infection at this time
- Hgb 11 compared to baseline of around 13.
- Expected ecchymosis of the LLE following recent surgery.
- Recheck CBC
Benign Hypertension
- Stable. Continue lisinopril
Hypothyroidism
- Continue current T4 dose.
History of Recurrent Nephrolithiasis
- Most recent episode was in September and require cysto, stent, etc.
- CT today shows no ureteral stones and patient notes that current symptoms are not similar to prior episodes.
DVT Prophylaxis: ASA 81 mg BID. SCDs.
Code Status: Full Code
Anticipated Discharge: 24 - 48 hours
Subjective/Interval History
-
Date of Service: February 13, 2024
Patient was seen and examined. She reported abdominal pain and earlier, some nausea as well.
Objective Data
-
Labs:
Laboratory Results
02/13/24
07:41
WBC 12.5 H
Hgb 11.0 L
Hct 31.7 L
Plt Count 262
Sodium 137
Potassium 3.7
Chloride 102
Carbon Dioxide 23
BUN 23 H
Creatinine 0.8
Glucose 120 H
Calcium 8.7
Total Bilirubin 0.9
AST 36
ALT 22
Alkaline Phosphatase 61
Vital Signs:
Vital Signs
Temp Pulse Resp BP Pulse Ox
99.4 F 83 20 188/97 94
02/13/24 15:57 02/13/24 16:15 02/13/24 15:57 02/13/24 17:06 02/13/24 15:57
I&O
02/12/24 02/13/24 02/14/24
06:59 06:59 06:59
Intake Total 480 / 480
Balance 480 / 480
--- NOTE | 2024-02-13 19:39 | PTCARENOTE ---
pt is st on the monitor, bp was 188/61, notified dr. tillman, ordered hydralazine. given as ordered. repeat bp was 133/70. pt educated on plan of care and pt verbalized understanding. call dias within reach.
[2024-02-13] MEDS: LOW STRENGTH ASPIRIN 81 MG PO (21:18)
--- NOTE | 2024-02-13 22:41 | PTCARENOTE ---
received the patient at the change of shift. significant other at the bedside. patient states feeling much better, no nausea. ambulating in the room independently. denies any pain. HR SR-ST 80s-low 100s. increased rates with activity. bp stable. L
knee dressing falling over. redressed. incision approximated/scabbed/ecchymotic. + pulses. +2 Left LE edema-improved per patient. ice pack provided per patients request. small BMx1 per patient. educated patient to inform Rn with any changes over
night. call dias within reach.
[2024-02-14] MEDS: COMPAZINE 5 MG IV ×2 (03:30→05:45)
--- NOTE | 2024-02-14 03:32 | PTCARENOTE ---
patient complained of mild nausea at approx 22:45. PRN Compazine given with relief-patient fell asleep. patient again woke with this morning feeling nauseous and 'sick to her stomach.' anxious. denies abdominal pain. updated Sylvie RN ENT. another dose of
Compazine IV ordered and given-see jun.
[2024-02-14 05:32] VITALS: BP 177/93
[2024-02-14] MEDS: MAALOX 30 ML PO (05:45)
[2024-02-14] MEDS: SYNTHROID 75 MCG PO (05:53)
--- NOTE | 2024-02-14 05:53 | PTCARENOTE ---
patient noted some relief from IV compazine and then overnight started to not feel well again. nauseous; 'bad' taste in her mouth and feeling bloated. patient appears anxious, restless in bed. elevated bp/hr. updated Sylvie [employer]. PRN compazine and
maalox given. comfort measures provided.
[2024-02-14 06:19] LABS: Hemoglobin 11.6 g/dL (12.0-16.0); Mean Corp Hgb Conc. 35.2 g/dL (33.0-37.0); Mean Corpuscular Hgb 31.4 pg (27.0-31.0); Mean Corpuscular Volume 89.2 fL (81.0-99.0); Mean Platelet Volume 10.3 fL (7.4-10.4); Platelet Count 312 10^3/uL (130-400); Red Cell Dist. Width 12.2 % (11.5-14.5); White Blood Cell Count 12.6 10^3/uL (4.8-10.8)
[2024-02-14 06:34] LABS: ALT (SGPT) 21 U/L (0-35); AST (SGOT) 31 U/L (14-36); Albumin 3.7 g/dl (3.5-5.0); Alkaline Phosphatase 65 U/L (38-126); Blood Urea Nitrogen 19 mg/dl (7-17); Calcium 8.8 mg/dl (8.4-10.2); Carbon Dioxide 25 mmol/L (22-30); Chloride 98 mmol/L (98-107); Estimated Creatinine Clearance 57 ml/min; Glucose 136 mg/dl (70-99); Potassium 3.4 mmol/L (3.5-5.1); Sodium 132 mmol/L (135-145); Total Bilirubin 1.3 mg/dl (0.2-1.3); Total Protein 6.2 g/dl (6.3-8.2); eGFR > 60.00
[2024-02-14] MEDS: NSS (PRESERVATIVE FREE) 10 ML IV ×2 (08:04→19:17)
[2024-02-14] MEDS: ZOFRAN 4 MG PO (08:04)
[2024-02-14] MEDS: PROTONIX IV 40 MG IV ×2 (08:05→19:17)
[2024-02-14 08:12] VITALS: BP 165/79
--- NOTE | 2024-02-14 08:16 | PTCARENOTE ---
Assumed care. Patient anxious expressing her frustration. Complaints of general nausea, Zofran and IV Protonix given, bowel sounds hyperactive, abdomen soft, pain lower abdomen, feeling if she could belch she would feel better. Encouraged walking in
halls, which she did this morning. Will give PO meds with her breakfast
[2024-02-14] MEDS: COLACE 100 MG PO (09:54)
[2024-02-14] MEDS: NORVASC 2.5 MG PO (09:54)
[2024-02-14] MEDS: LIPITOR 20 MG PO (09:54)
[2024-02-14] MEDS: VITAMIN D3 (cholecalciferol) 25 MCG PO (09:54)
[2024-02-14] MEDS: ZESTRIL 20 MG PO (09:54)
[2024-02-14] MEDS: CELEXA 10 MG PO (09:55)
[2024-02-14] MEDS: MIRALAX 17 GRAMS PO (09:55)
[2024-02-14] MEDS: LOW STRENGTH ASPIRIN 81 MG PO ×2 (09:55→19:17)
--- NOTE | 2024-02-14 10:05 | PTCARENOTE ---
Tolerating clear liquids. Meds given with breakfast
--- NOTE | 2024-02-14 10:36 | W.PN.GI.CBS2 ---
Today's Communication / Plan
-
Plan:
Obstruction series without any evidence of ileus or stool burden. Patient does feel she has to move her bowels but is not able to evacuate, last bowel movement 2 days ago.
Only 1 small BM after fleets enema ,on MiraLAX 17 g daily as well.
Given no significant BM, will start magnesium citrate and suggested that she drink it slowly and once she srats to have BM, if diarrhea is significant, she can hold off on drinking the rest of the magnesium citrate.
Currently on clear liquid diet, advance once abdominal pain improves.
Limit narcotics, explained to the patient that it worsens the nausea / vomiting and also constipation.
She has been on dicyclomine for IBS symptoms, I would hold that for now. Dicyclomine will also make constipation worse.
Continue pantoprazole twice daily
Mild leukocytosis, no F/c. No evidence of acute cholecystitis on US, CT scan also unremarakable vfor any diverticulitis/colitis.
Unclear etiology for this abdo pain,likely related to constipation.
Trend hemoglobin
Follow-up with outpatient GI (Dr. Adrianne Mccormick)
Assessment / Plan
-
78-year-old female with past medical history of hypertension, hyperlipidemia, hypothyroidism, colon polyps (follows with Dr. Adrianne Mccormick at [facility] ), history of hepatitis C status posttreatment and eradication, kidney stones, osteoporosis with left
knee osteoarthritis status post left knee TKA on 02/09/2024 presents to the emergency room with acute onset of epigastric pain, nausea and vomiting. Asked to evaluate for the same. The patient had outpatient surgery on 02/09/2024 at outside
surgery center. The patient states that all went well and she was discharged to home. She states that night she ate very lightly with avocado toast. Her medications that she was taking included aspirin 325 mg daily, oxycodone 5 mg however she
states she did not take these, dexamethasone 4 mg every 12 hours for 3 days, Celebrex 100 mg twice daily for 15 days as well as Tylenol 2 capsules twice a day. The patient states on Friday she was doing well. She ate and egg and a piece
of toast. By dinner she was not feeling so well she ate a very small amount of dinner. Her stomach started to ache a little bit. Friday morning she states she had stomach discomfort that was in the epigastric area. She states this was dull,
gnawing. She states her niece came over from 12 noon to 4 PM she still had a stomach discomfort and was unable to eat. She then states that her partner [place] made dinner. She was only able to eat a small amount and then she vomited which was
bilious in nature. She proceeded to have more abdominal pain that evening at 1 point she called orthopedic surgeon he instructed her to take some Tums. She promptly vomited this up that was frothy in nature. She never had any hematemesis or
coffee grounds. At that point because of persistent pain nausea and vomiting she proceeded to come to the emergency room. She had a bowel movement the day of surgery and yesterday. This was solid. Rectal exam performed by myself in the emergency
room was a brown/orange bowel movement that was negative for occult blood. I reviewed her prehospitalization lab work from outpatient as well as current lab work. The patient denies any fevers, chills, melena, hematochezia, dysphagia or dyne
aphasia. The patient has no early satiety or unintentional weight loss. She has never had an upper endoscopy before. She states she usually has soft to loose bowel movements and does follow with outpatient GI. She denies any family history
gastrointestinal malignancy or inflammatory bowel disease. She does not take any GI prophylaxis. WBC 14.5, hemoglobin 11.2, hematocrit 31.7, platelet count 249, sodium 134, potassium 4.2, chloride 100, CO2 21, BUN 24, creatinine 0.9, glucose 148,
total bilirubin 0.8, AST 42, ALT 21, alk phos 69, albumin 4.1, lipase 87. Of note patient is on dexamethasone at the present time. Patient is afebrile. Outpatient labs performed on 01/12/2024 showed WBC 5.4, hemoglobin 13.9, hematocrit 42.0
platelets 270., Labs 10/25/2023 sodium 141, potassium 4.5, BUN 23, creatinine 0.81.
Past Medical History
Past Medical History: HTN, Hypercholesterolemia and Other (Hepatitis C status posttreatment eradication, kidney stones, osteoporosis, osteoarthritis)
Past Surgical History: Gynecological (Hysterectomy) and Other (Left knee replacement, lithotripsy x 2, salivary gland removed, mastoid surgery)
Social History
Tobacco: Former Smoker
Alcohol: Occasional (Rare alcohol few times a year, none in many months)
Drug: None
Personal:
Living: With Family
Family History
Family History: Other (No family history of gastrointestinal malignancy or IBD)
Allergies / Home Medications
Allergy/AdvReac Type Severity Reaction Status Date / Time
No Known Allergies Allergy Verified 02/11/24 21:59
�Medication �Instructions �Recorded
lisinopril 10 mg tablet 20 mg PO DAILY 12/25/10
denosumab 60 mg/mL subcutaneous 60 mg SC [id number] 10/07/23
syringe (Prolia)
cholecalciferol (vitamin D3) 25 25 mcg PO DAILY 10/09/23
mcg (1,000 unit) tablet (Vitamin
D3)
citalopram 10 mg tablet 10 mg PO DAILY 10/09/23
atorvastatin 20 mg tablet (Lipitor) 20 mg PO DAILY 10/12/23
dicyclomine 20 mg tablet 20 mg PO TIDPRN PRN spasms 10/12/23
levothyroxine 75 mcg tablet 75 mcg PO DAILY 10/12/23
(Synthroid)
aspirin 325 mg tablet 325 mg PO DAILY 02/12/24
celecoxib 100 mg capsule 100 mg PO BIDPRN PRN mild pain 02/12/24
ondansetron HCl 4 mg tablet 4 mg PO Q6HPRN PRN nausea 02/12/24
oxycodone 5 mg tablet 5 mg PO Q6HPRN PRN severe pain 02/12/24
Review of Systems
-
All other systems: A 12 pt ROS was Negative except as stated above in HPI
Vital Signs
Temp Pulse Resp BP Pulse Ox
98.7 F 119 19 164/105 94
02/12/24 08:25 02/12/24 08:19 02/12/24 08:19 02/12/24 08:21 02/12/24 08:25
WBC 14.5 10^3/uL (4.8-10.8) H 02/11/24 22:03
Hgb 11.2 g/dL (12.0-16.0) L 02/11/24 22:03
Hct 31.7 % (37.0-47.0) L 02/11/24 22:03
MCV 89.5 fL (81.0-99.0) 02/11/24 22:03
Plt Count 249 10^3/uL (130-400) 02/11/24 22:03
Absolute Neuts (auto) 11.4 10^3/uL (1.4-6.5) H 02/11/24 22:03
Sodium 134 mmol/L (135-145) L 02/11/24 22:03
Potassium 4.2 mmol/L (3.5-5.1) 02/11/24 22:03
Chloride 100 mmol/L (98-107) 02/11/24 22:03
Carbon Dioxide 21 mmol/L (22-30) L 02/11/24 22:03
BUN 24 mg/dl (7-17) H 02/11/24 22:03
Creatinine 0.9 mg/dL (0.6-1.0) 02/11/24 22:03
Calcium 9.5 mg/dl (8.4-10.2) 02/11/24 22:03
Total Bilirubin 0.8 mg/dl (0.2-1.3) 02/11/24 22:03
AST 42 U/L (14-36) H 02/11/24 22:03
ALT 21 U/L (0-35) 02/11/24 22:03
Alkaline Phosphatase 69 U/L (38-126) 02/11/24 22:03
Lipase 87 U/L (23-300) 02/11/24 22:03
Diagnostic Image Results: CT Abdomen pelvis with IV contrast only:IMPRESSION:1. Gallbladder is mildly distended, and there is gallbladder wall thickening and gallbladder wall edema. Findings are suggestive of mild cholecystitis, consider abdominal
ultrasound.2. Nephrolithiasis on each side, without hydronephrosis. No significant change compared to prior study.Findings are in agreement with the after hours [facility] radiology report.
Ultrasound abdomen:Impression:1. Unremarkable right upper quadrant ultrasound, as detailed above. No sonographic evidence for cholelithiasis or acute cholecystitis.
Prior GI Procedures: EGD: Never had
Colonoscopy: Patient states she had a colonoscopy (with Dr. Adrianne Mccormick this year) had 4 polyps removed.
She is concerned status post MRI and then you know what cellular colonoscopy 08/10/2020 ([facility]): - Diverticulosis in the sigmoid colon, in the transverse colon and in the ascending colon. - One 2 mm polyp in the sigmoid colon, removed with a
cold biopsy forceps. Resected and retrieved. - One 3 mm polyp in the transverse colon, removed with a cold snare. Resected and retrieved. - One 2 mm polyp at the hepatic flexure, removed with cold biopsy forceps. Resected and
retrieved. - One 2 mm polyp in the cecum, removed with a cold biopsy forceps. Resected and retrieved. - The examined portion of the ileum was normal.
Assessment / Plan
-
78-year-old female with past medical history of hypertension, hyperlipidemia, hypothyroidism, colon polyps (follows with Dr. Adrianne Mccormick at [facility] ), history of hepatitis C status posttreatment and eradication, kidney stones, osteoporosis with left
knee osteoarthritis status post left knee TKA on 02/09/2024 presents to the emergency room with acute onset
of epigastric pain, nausea and vomiting.
Patient with epigastric pain initially but with mid and lower abdominal discomfort with nausea and vomiting in the setting of constipation, decreased p.o. intake, aspirin 325 mg daily, dexamethasone 4 mg twice daily, Celebrex 100 mg twice daily
without GI prophylaxis.Hemoglobin is decreased without signs of hematemesis or coffee grounds. Stool is negative for occult blood. Ultrasound of the abdomen unremarkable for cholelithiasis or acute cholecystitis.
Impression:
Epigastric discomfort--> likely gastritis given Ortho meds (aspirin 325 mg daily for 30 days, dexamethasone 4 mg twice daily for 3 days, Celebrex 100 mg twice daily for 15 days)n/vomiting --> as above
Recent slow transit constipation with baseline constipation--> likely worsened secondary to pain medication, slowly improved.
Anemia-> no signs of active GI bleeding. Likely secondary to recent surgery
Plan:
Obstruction series without any evidence of ileus or stool burden. Patient does feel she has to move her bowels but is not able to evacuate, last bowel movement 2 days ago.
Only 1 small BM after fleets enema ,on MiraLAX 17 g daily as well.
Given no significant BM, will start magnesium citrate and suggested that she drink it slowly and once she srats to have BM, if diarrhea is significant, she can hold off on drinking the rest of the magnesium citrate.
Currently on clear liquid diet, advance once abdominal pain improves.
Limit narcotics, explained to the patient that it worsens the nausea / vomiting and also constipation.
She has been on dicyclomine for IBS symptoms, I would hold that for now. Dicyclomine will also make constipation worse.
Continue pantoprazole twice daily
Mild leukocytosis, no F/c. No evidence of acute cholecystitis on US, CT scan also unremarakable vfor any diverticulitis/colitis.
Unclear etiology for this abdo pain,likely related to constipation.
Trend hemoglobin
Follow-up with outpatient GI (Dr. Adrianne Mccormick)
Subjective
Subjective
Date of Service: February 14, 2024
Patient reports having 1 small bowel movement after enema. Continues to have lower abdominal discomfort. No fever or chills.
Objective
Data Reviewed
Laboratory Data:
Laboratory Results
02/14/24 05:48
02/14/24 05:48
Laboratory Results
Total Bilirubin 1.3 mg/dl (0.2-1.3) 02/14/24 05:48
AST 31 U/L (14-36) 02/14/24 05:48
ALT 21 U/L (0-35) 02/14/24 05:48
Alkaline Phosphatase 65 U/L (38-126) 02/14/24 05:48
Lipase 41 U/L (23-300) 02/12/24 21:54
Vital Signs and I&O:
Vital Signs
Temp Pulse Resp BP Pulse Ox
98.6 F 102 18 165/79 96
02/14/24 08:14 02/14/24 09:15 02/14/24 08:14 02/14/24 08:12 02/14/24 08:14
I&O
02/13/24 02/14/24 02/15/24
06:59 06:59 06:59
Intake Total 730 / 730
Balance 730 / 730
Physical Exam
Physical Exam
GI: Soft, Non Distended and Tender (Discomfort on palpation in the lower abdomen without guarding or rigidity)
[2024-02-14 11:26] LABS: Magnesium 1.9 mg/dl (1.6-2.3)
[2024-02-14] MEDS: CITROMA 300 ML PO (11:55)
[2024-02-14] MEDS: KCL 40 MEQ PO (11:55)
[2024-02-14 11:57] VITALS: BP 138/78
--- NOTE | 2024-02-14 17:15 | PTCARENOTE ---
Patient with loose stools. Diet advanced, abdominal pain resolved.
[2024-02-14 17:56] VITALS: BP 130/68
--- NOTE | 2024-02-14 18:02 | W.PN.HOSP.TC ---
Today's Communication/Plan
-
Advance diet as tolerated
If symptoms improve, plan to discharge tomorrow
Assessment / Plan
Assessment / Plan
Physical Exam
General: Other (78y F in no acute distress.)
HEENT: Moist mucous membranes
Respiratory: Clear to Auscultation Bilaterally
Cardiac: S1/S2 and Regular Rhythm
GI: Soft, Non Distended and Normal Bowel Sounds. Mild epigastric tenderness.
Musculoskeletal: No Cyanosis and Other (LLE with edema / ecchymosis s/p recent surgery. Occlusive dressing in place with minimal strikethrough.)
Neuro: AAO x 3
Assessment/Plan
78y F with gastritis, N/V. Had TKA done Friday ([facility]) and presented with N/V, anorexia, GI upset. Asked to admit for acute cholecystitis (which [facility] did read on CT) which seemed unlikely. US done and is completely normal - no cholecystitis.
IV PPI, hold NSAIDs / decrease ASA.
Intractable N/V, Abdominal Pain
-Obstruction series without any evidence of ileus or stool burden but patient does feel she has to move her bowels but is not able to evacuate, last bowel movement 2 days ago.
-Fleets enema to clear the left colon continue MiraLAX 17 g daily after --> not much bowel movement after that
-So now magnesium citrate, appreciate GI
-Advance diet as tolerated.
-Limit narcotics
-Stop home Dicyclomine as it can make constipation worse
-Continue pantoprazole twice daily
Elevated troponin -- suspected non-[place] troponin elevation
- Cardiology was consulted on admission, appreciate their evaluation and recommendations
- Repeat an echocardiogram showed normal LV and RV function.
- Continue aspirin, amlodipine, lisinopril, and atorvastatin
Status post Left TKA
- Patient had L TKA at [facility] on 02/09/24.
- Doing very well in regards to pain control / mobility post-op.
- Continue PT / OT.
- Maintain current dressing.
- Discussed patient's case recently with on-call orthopedics Dr. Serrano as well as patient's surgeon Dr. Lee: they said okay to do Aspirin 81 mg BID for DVT prophylaxis
- Try to limit meds that would contribute to GI upset.
Post-Op Blood Loss Anemia
Leukocytosis -- suspected from recent surgery -- no signs or symptoms of infection at this time
- Hgb 11 compared to baseline of around 13.
- Expected ecchymosis of the LLE following recent surgery.
- Recheck CBC
Benign Hypertension
- Stable. Continue lisinopril
Hypothyroidism
- Continue current T4 dose.
History of Recurrent Nephrolithiasis
- Most recent episode was in September and require cysto, stent, etc.
- CT today shows no ureteral stones and patient notes that current symptoms are not similar to prior episodes.
DVT Prophylaxis: ASA 81 mg BID. SCDs.
Code Status: Full Code
Anticipated Discharge: 24 - 48 hours
Subjective/Interval History
-
Date of Service: February 14, 2024
Patient was seen and examined. She reported persistent abdominal discomfort and nausea. She denied any chest pain or shortness of breath. She denied any pain in her legs.
Objective Data
-
Labs:
Laboratory Results
02/14/24
05:48
WBC 12.6 H
Hgb 11.6 L
Hct 33.0 L
Plt Count 312
Sodium 132 L
Potassium 3.4 L
Chloride 98
Carbon Dioxide 25
BUN 19 H
Creatinine 0.7
Glucose 136 H
Calcium 8.8
Total Bilirubin 1.3
AST 31
ALT 21
Alkaline Phosphatase 65
Vital Signs:
Vital Signs
Temp Pulse Resp BP Pulse Ox
98.3 F 121 16 138/78 96
02/14/24 17:58 02/14/24 17:45 02/14/24 17:58 02/14/24 11:57 02/14/24 17:58
I&O
02/13/24 02/14/24 02/15/24
06:59 06:59 06:59
Intake Total 730 / 730
Balance 730 / 730
[2024-02-14 19:16] VITALS: BP 117/80
[2024-02-14 21:50] VITALS: BP 156/82
[2024-02-15] MEDS: ZOFRAN 4 MG PO (01:32)
[2024-02-15 04:38] VITALS: BP 151/76
[2024-02-15 05:41] LABS: Hematocrit 32.9 % (37.0-47.0); Hemoglobin 11.7 g/dL (12.0-16.0); Mean Corp Hgb Conc. 35.6 g/dL (33.0-37.0); Mean Corpuscular Volume 89.9 fL (81.0-99.0); Mean Platelet Volume 10.2 fL (7.4-10.4); Platelet Count 346 10^3/uL (130-400); Red Blood Cell Count 3.66 10^6/uL (4.20-5.40); Red Cell Dist. Width 12.3 % (11.5-14.5); White Blood Cell Count 13.1 10^3/uL (4.8-10.8)
[2024-02-15 05:42] LABS: ALT (SGPT) 18 U/L (0-35); AST (SGOT) 22 U/L (14-36); Albumin 3.4 g/dl (3.5-5.0); Alkaline Phosphatase 63 U/L (38-126); Blood Urea Nitrogen 24 mg/dl (7-17); Calcium 8.8 mg/dl (8.4-10.2); Carbon Dioxide 28 mmol/L (22-30); Chloride 97 mmol/L (98-107); Estimated Creatinine Clearance 49 ml/min; Glucose 123 mg/dl (70-99); Potassium 3.9 mmol/L (3.5-5.1); Sodium 134 mmol/L (135-145); Total Bilirubin 1.1 mg/dl (0.2-1.3); Total Protein 5.8 g/dl (6.3-8.2); eGFR > 60.00
[2024-02-15] MEDS: SYNTHROID 75 MCG PO (06:16)
[2024-02-15 07:36] VITALS: BP 154/77
[2024-02-15] MEDS: NSS (PRESERVATIVE FREE) 10 ML IV (08:08)
[2024-02-15] MEDS: NORVASC 2.5 MG PO (08:08)
[2024-02-15] MEDS: PROTONIX IV IV (08:08)
[2024-02-15] MEDS: COLACE 100 MG PO (08:08)
[2024-02-15] MEDS: LOW STRENGTH ASPIRIN 81 MG PO ×2 (08:08→19:52)
[2024-02-15] MEDS: LIPITOR 20 MG PO (08:08)
[2024-02-15] MEDS: CELEXA 10 MG PO (08:08)
[2024-02-15] MEDS: ZESTRIL 20 MG PO (08:09)
[2024-02-15] MEDS: VITAMIN D3 (cholecalciferol) 25 MCG PO (08:09)
[2024-02-15] MEDS: MIRALAX 17 GRAMS PO (08:09)
[2024-02-15] MEDS: PROTONIX IV 40 MG IV (08:52)
--- NOTE | 2024-02-15 09:22 | PTCARENOTE ---
New IV acces placed. Patient sent to CT scan in a wheelchair. Tolerating diet, some abdominal fullness after her breakfast, encouraged walking and sitting in chair. SR/ST on telemetry, VSS
[2024-02-15 10:53] VITALS: BP 159/72
--- NOTE | 2024-02-15 11:40 | W.PN.GI.CBS2 ---
Today's Communication / Plan
-
Plan:
Obstruction series without any evidence of ileus or stool burden. Patient does feel she has to move her bowels but is not able to evacuate
She did have BM 02/13 and now feels much better, likely cause of abdominal pain is constipation.
Currently on low res diet
Continue Miralax 17gm bid even as OP for chronic constipation
Limit narcotics, explained to the patient that it worsens the nausea / vomiting and also constipation.
She has been on dicyclomine for IBS symptoms, I would hold that for now. Dicyclomine will also make constipation worse.
Continue pantoprazole twice daily
Mild leukocytosis, no F/c. No evidence of acute cholecystitis on US, CT scan also unremarakable vfor any diverticulitis/colitis.
Follow-up with outpatient GI (Dr. Adrianne Mccormick)
Assessment / Plan
-
78-year-old female with past medical history of hypertension, hyperlipidemia, hypothyroidism, colon polyps (follows with Dr. Adrianne Mccormick at [facility] ), history of hepatitis C status posttreatment and eradication, kidney stones, osteoporosis with left
knee osteoarthritis status post left knee TKA on 02/09/2024 presents to the emergency room with acute onset of epigastric pain, nausea and vomiting. Asked to evaluate for the same. The patient had outpatient surgery on 02/09/2024 at outside
surgery center. The patient states that all went well and she was discharged to home. She states that night she ate very lightly with avocado toast. Her medications that she was taking included aspirin 325 mg daily, oxycodone 5 mg however she
states she did not take these, dexamethasone 4 mg every 12 hours for 3 days, Celebrex 100 mg twice daily for 15 days as well as Tylenol 2 capsules twice a day. The patient states on Friday morning she was doing well. She ate and egg and a piece
of toast. By dinner she was not feeling so well she ate a very small amount of dinner. Her stomach started to ache a little bit. Friday morning she states she had stomach discomfort that was in the epigastric area. She states this was dull,
gnawing. She states her niece came over from 12 noon to 4 PM she still had a stomach discomfort and was unable to eat. She then states that her partner Slovan made dinner. She was only able to eat a small amount and then she vomited which was
bilious in nature. She proceeded to have more abdominal pain that evening at 1 point she called orthopedic surgeon he instructed her to take some Tums. She promptly vomited this up that was frothy in nature. She never had any hematemesis or
coffee grounds. At that point because of persistent pain nausea and vomiting she proceeded to come to the emergency room. She had a bowel movement the day of surgery and yesterday. This was solid. Rectal exam performed by myself in the emergency
room was a brown/orange bowel movement that was negative for occult blood. I reviewed her prehospitalization lab work from outpatient as well as current lab work. The patient denies any fevers, chills, melena, hematochezia, dysphagia or dyne
aphasia. The patient has no early satiety or unintentional weight loss. She has never had an upper endoscopy before. She states she usually has soft to loose bowel movements and does follow with outpatient GI. She denies any family history
gastrointestinal malignancy or inflammatory bowel disease. She does not take any GI prophylaxis. WBC 14.5, hemoglobin 11.2, hematocrit 31.7, platelet count 249, sodium 134, potassium 4.2, chloride 100, CO2 21, BUN 24, creatinine 0.9, glucose 148,
total bilirubin 0.8, AST 42, ALT 21, alk phos 69, albumin 4.1, lipase 87. Of note patient is on dexamethasone at the present time. Patient is afebrile. Outpatient labs performed on 01/12/2024 showed WBC 5.4, hemoglobin 13.9, hematocrit 42.0
platelets 270., Labs 10/25/2023 sodium 141, potassium 4.5, BUN 23, creatinine 0.81.
Past Medical History
Past Medical History: HTN, Hypercholesterolemia and Other (Hepatitis C status posttreatment eradication, kidney stones, osteoporosis, osteoarthritis)
Past Surgical History: Gynecological (Hysterectomy) and Other (Left knee replacement, lithotripsy x 2, salivary gland removed, mastoid surgery)
Social History
Tobacco: Former Smoker
Alcohol: Occasional (Rare alcohol few times a year, none in many months)
Drug: None
Personal:
Living: With Family
Family History
Family History: Other (No family history of gastrointestinal malignancy or IBD)
Allergies / Home Medications
Allergy/AdvReac Type Severity Reaction Status Date / Time
No Known Allergies Allergy Verified 02/11/24 21:59
�Medication �Instructions �Recorded
lisinopril 10 mg tablet 20 mg PO DAILY 12/25/10
denosumab 60 mg/mL subcutaneous 60 mg SC [id number] 10/07/23
syringe (Prolia)
cholecalciferol (vitamin D3) 25 25 mcg PO DAILY 10/09/23
mcg (1,000 unit) tablet (Vitamin
D3)
citalopram 10 mg tablet 10 mg PO DAILY 10/09/23
atorvastatin 20 mg tablet (Lipitor) 20 mg PO DAILY 10/12/23
dicyclomine 20 mg tablet 20 mg PO TIDPRN PRN spasms 10/12/23
levothyroxine 75 mcg tablet 75 mcg PO DAILY 10/12/23
(Synthroid)
aspirin 325 mg tablet 325 mg PO DAILY 02/12/24
celecoxib 100 mg capsule 100 mg PO BIDPRN PRN mild pain 02/12/24
ondansetron HCl 4 mg tablet 4 mg PO Q6HPRN PRN nausea 02/12/24
oxycodone 5 mg tablet 5 mg PO Q6HPRN PRN severe pain 02/12/24
Review of Systems
-
All other systems: A 12 pt ROS was Negative except as stated above in HPI
Vital Signs
Temp Pulse Resp BP Pulse Ox
98.7 F 119 19 164/105 94
02/12/24 08:25 02/12/24 08:19 02/12/24 08:19 02/12/24 08:21 02/12/24 08:25
WBC 14.5 10^3/uL (4.8-10.8) H 02/11/24 22:03
Hgb 11.2 g/dL (12.0-16.0) L 02/11/24 22:03
Hct 31.7 % (37.0-47.0) L 02/11/24 22:03
MCV 89.5 fL (81.0-99.0) 02/11/24 22:03
Plt Count 249 10^3/uL (130-400) 02/11/24 22:03
Absolute Neuts (auto) 11.4 10^3/uL (1.4-6.5) H 02/11/24 22:03
Sodium 134 mmol/L (135-145) L 02/11/24 22:03
Potassium 4.2 mmol/L (3.5-5.1) 02/11/24 22:03
Chloride 100 mmol/L (98-107) 02/11/24 22:03
Carbon Dioxide 21 mmol/L (22-30) L 02/11/24 22:03
BUN 24 mg/dl (7-17) H 02/11/24 22:03
Creatinine 0.9 mg/dL (0.6-1.0) 02/11/24 22:03
Calcium 9.5 mg/dl (8.4-10.2) 02/11/24 22:03
Total Bilirubin 0.8 mg/dl (0.2-1.3) 02/11/24 22:03
AST 42 U/L (14-36) H 02/11/24 22:03
ALT 21 U/L (0-35) 02/11/24 22:03
Alkaline Phosphatase 69 U/L (38-126) 02/11/24 22:03
Lipase 87 U/L (23-300) 02/11/24 22:03
Diagnostic Image Results: CT Abdomen pelvis with IV contrast only:IMPRESSION:1. Gallbladder is mildly distended, and there is gallbladder wall thickening and gallbladder wall edema. Findings are suggestive of mild cholecystitis, consider abdominal
ultrasound.2. Nephrolithiasis on each side, without hydronephrosis. No significant change compared to prior study.Findings are in agreement with the after hours [facility] radiology report.
Ultrasound abdomen:Impression:1. Unremarkable right upper quadrant ultrasound, as detailed above. No sonographic evidence for cholelithiasis or acute cholecystitis.
Prior GI Procedures: EGD: Never had
Colonoscopy: Patient states she had a colonoscopy (with Dr. Adrianne Mccormick this year) had 4 polyps removed.
She is concerned status post MRI and then you know what cellular colonoscopy 08/10/2020 ([place]): - Diverticulosis in the sigmoid colon, in the transverse colon and in the ascending colon. - One 2 mm polyp in the sigmoid colon, removed with a
cold biopsy forceps. Resected and retrieved. - One 3 mm polyp in the transverse colon, removed with a cold snare. Resected and retrieved. - One 2 mm polyp at the hepatic flexure, removed with cold biopsy forceps. Resected and
retrieved. - One 2 mm polyp in the cecum, removed with a cold biopsy forceps. Resected and retrieved. - The examined portion of the ileum was normal.
Assessment / Plan
-
78-year-old female with past medical history of hypertension, hyperlipidemia, hypothyroidism, colon polyps (follows with Dr. Adrianne Mccormick at [facility] ), history of hepatitis C status posttreatment and eradication, kidney stones, osteoporosis with left
knee osteoarthritis status post left knee TKA on 02/09/2024 presents to the emergency room with acute onset
of epigastric pain, nausea and vomiting.
Patient with epigastric pain initially but with mid and lower abdominal discomfort with nausea and vomiting in the setting of constipation, decreased p.o. intake, aspirin 325 mg daily, dexamethasone 4 mg twice daily, Celebrex 100 mg twice daily
without GI prophylaxis.Hemoglobin is decreased without signs of hematemesis or coffee grounds. Stool is negative for occult blood. Ultrasound of the abdomen unremarkable for cholelithiasis or acute cholecystitis.
Impression:
Epigastric discomfort--> likely gastritis given Ortho meds (aspirin 325 mg daily for 30 days, dexamethasone 4 mg twice daily for 3 days, Celebrex 100 mg twice daily for 15 days)n/vomiting --> as above
Recent slow transit constipation with baseline constipation--> likely worsened secondary to pain medication, slowly improved.
Anemia-> no signs of active GI bleeding. Likely secondary to recent surgery
Plan:
Obstruction series without any evidence of ileus or stool burden. Patient does feel she has to move her bowels but is not able to evacuate
She did have BM 02/13 and now feels much better, likely cause of abdominal pain is constipation.
Currently on low res diet
Continue Miralax 17gm bid even as OP for chronic constipation
Limit narcotics, explained to the patient that it worsens the nausea / vomiting and also constipation.
She has been on dicyclomine for IBS symptoms, I would hold that for now. Dicyclomine will also make constipation worse.
Continue pantoprazole twice daily
Mild leukocytosis, no F/c. No evidence of acute cholecystitis on US, CT scan also unremarakable vfor any diverticulitis/colitis.
Follow-up with outpatient GI (Dr. Adrianne Mccormick)
Subjective
Subjective
Date of Service: February 15, 2024
Abdominal pain is much improved, no vomiting, just stated on low res diet, had BM 02/13
Objective
Data Reviewed
Laboratory Data:
Laboratory Results
02/15/24 04:44
02/15/24 04:44
Laboratory Results
Magnesium 1.9 mg/dl (1.6-2.3) 02/14/24 05:48
Total Bilirubin 1.1 mg/dl (0.2-1.3) 02/15/24 04:44
AST 22 U/L (14-36) 02/15/24 04:44
ALT 18 U/L (0-35) 02/15/24 04:44
Alkaline Phosphatase 63 U/L (38-126) 02/15/24 04:44
Lipase 41 U/L (23-300) 02/12/24 21:54
Vital Signs and I&O:
Vital Signs
Temp Pulse Resp BP Pulse Ox
98.4 F 90 20 151/76 96
02/15/24 10:50 02/15/24 04:38 02/15/24 10:50 02/15/24 04:38 02/15/24 10:50
I&O
02/14/24 02/15/24 02/16/24
06:59 06:59 06:59
Intake Total 730 / 730 1440 / 1440
Balance 730 / 730 1440 / 1440
Physical Exam
Physical Exam
GI: Soft, Non Distended and Non Tender
--- NOTE | 2024-02-15 13:58 | W.PN.HOSP.TC ---
Today's Communication/Plan
-
Pericardial Effusion work-up as discussed with cardiology
Based on results, cardiology said to either consult or not consult them
Still with some epigastric and lower abdominal pain
Assessment / Plan
Assessment / Plan
Physical Exam
General: Other (78y F in no acute distress.)
HEENT: Moist mucous membranes
Respiratory: Clear to Auscultation Bilaterally
Cardiac: S1/S2 and Regular Rhythm
GI: Soft, Non Distended and Normal Bowel Sounds. Mild epigastric tenderness.
Musculoskeletal: No Cyanosis and Other (LLE with edema / ecchymosis s/p recent surgery. Occlusive dressing in place with minimal strikethrough.)
Neuro: AAO x 3
Assessment/Plan
78y F with gastritis, N/V. Had TKA done Friday ([facility]) and presented with N/V, anorexia, GI upset. Asked to admit for acute cholecystitis (which [facility] did read on CT) which seemed unlikely. US done and is completely normal - no cholecystitis.
IV PPI, hold NSAIDs / decrease ASA.
Intractable N/V, Abdominal Pain
-Obstruction series without any evidence of ileus or stool burden but patient does feel she has to move her bowels but is not able to evacuate, last bowel movement 2 days ago.
-Fleets enema to clear the left colon continue MiraLAX 17 g daily after --> not much bowel movement after that
-So magnesium citrate was given, appreciate GI
-Advance diet as tolerated.
-Limit narcotics
-Stop home Dicyclomine as it can make constipation worse
-Continue pantoprazole twice daily
-Patient was suspected to have gastritis shortly after her recent orthopedic surgery, and after [facility] with Dr. Lee, he recommended Aspirin 81 mg BID (instead of Aspirin 325 mg daily)
New? Pericardial Effusion on CT Scan from 02/15/24
-Was not seen on echocardiogram from 02/13/24
-I discussed this with on-talent management specialist on 02/15/24
-Cardiology recommended via [facility] on 02/15/24: EKG, repeat echo, ESR, CRP, VALERIA and Rheumatoid Factor --> and if these are remarkable, then can formally consult cardiology tomorrow
-Patient also has leukocytosis along with upper abdominal pain, possible association with a pericardial process
-Based on results, cardiology said to either consult or not consult them
Unexplained Sinus Tachycardia
-HR in the low 100s
-No PE on CT Chest performed on 02/15/24
Elevated troponin -- suspected non-[place] troponin elevation
- Cardiology was consulted on admission, appreciate their evaluation and recommendations
- Repeat an echocardiogram showed normal LV and RV function.
- Continue aspirin, amlodipine, lisinopril, and atorvastatin
Status post Left TKA
- Patient had L TKA at [facility] on 02/09/24.
- Doing very well in regards to pain control / mobility post-op.
- Continue PT / OT.
- Maintain current dressing.
- Discussed patient's case recently with on-call orthopedics Dr. Serrano as well as patient's surgeon Dr. Lee, given patient's possible gastritis/abdominal pain: they said okay to do Aspirin 81 mg BID for DVT prophylaxis
- Try to limit meds that would contribute to GI upset.
Post-Op Blood Loss Anemia
Leukocytosis -- suspected from recent surgery
- Hgb 11 compared to baseline of around 13.
- Leukocytosis -- persists, checking for pericardial process as above
- Expected ecchymosis of the LLE following recent surgery.
- Recheck CBC
Benign Hypertension
- Stable. Continue lisinopril
Hypothyroidism
- Continue current T4 dose.
History of Recurrent Nephrolithiasis
- Most recent episode was in September and require cysto, stent, etc.
- CT today shows no ureteral stones and patient notes that current symptoms are not similar to prior episodes.
DVT Prophylaxis: ASA 81 mg BID. SCDs.
Code Status: Full Code
Anticipated Discharge: 24 - 48 hours
Subjective/Interval History
-
Date of Service: February 15, 2024
Patient was seen and examined. She reports abdominal pain is still there.
Objective Data
-
Labs:
Laboratory Results
02/15/24
04:44
WBC 13.1 H
Hgb 11.7 L
Hct 32.9 L
Plt Count 346
Sodium 134 L
Potassium 3.9
Chloride 97 L
Carbon Dioxide 28
BUN 24 H
Creatinine 0.8
Glucose 123 H
Calcium 8.8
Total Bilirubin 1.1
AST 22
ALT 18
Alkaline Phosphatase 63
Vital Signs:
Vital Signs
Temp Pulse Resp BP Pulse Ox
98.4 F 86 20 159/72 96
02/15/24 10:50 02/15/24 10:53 02/15/24 10:50 02/15/24 10:53 02/15/24 10:50
I&O
02/14/24 02/15/24 02/16/24
06:59 06:59 06:59
Intake Total 730 / 730 1440 / 1440
Balance 730 / 730 1440 / 1440
[2024-02-15 16:00] VITALS: BP 131/67
[2024-02-15 19:30] VITALS: BP 108/61
[2024-02-15] MEDS: PROTONIX 40 MG PO (19:52)
[2024-02-15 22:22] VITALS: BP 130/57
[2024-02-16 04:02] VITALS: BP 125/65
[2024-02-16 04:42] LABS: % Basophils 0.1 % (0-2); % Immature Granulocytes 0.9 % (0-0.5); % Lymphocytes 16.6 % (20.5-51.1); % Monocytes 13.3 % (1.7-9.3); % Neutrophils 68.1 % (42.2-75.2); Absolute Eosinophils 0.1 10^3/uL (0-0.7); Absolute Immature Granulocytes 0.1 10^3/uL (0-0.05); Absolute Lymphocytes 2.4 10^3/uL (1.2-3.4); Absolute Monocytes 1.9 10^3/uL (0.1-0.6); Absolute Neutrophils 9.7 10^3/uL (1.4-6.5); Hematocrit 31.6 % (37.0-47.0); Mean Corp Hgb Conc. 34.8 g/dL (33.0-37.0); Mean Corpuscular Hgb 30.4 pg (27.0-31.0); Mean Corpuscular Volume 87.3 fL (81.0-99.0); Mean Platelet Volume 9.5 fL (7.4-10.4); Nucleated Red Blood Cells % 0 %; Platelet Count 367 10^3/uL (130-400); Red Blood Cell Count 3.62 10^6/uL (4.20-5.40); Red Cell Dist. Width 12.6 % (11.5-14.5); White Blood Cell Count 14.3 10^3/uL (4.8-10.8)
[2024-02-16 05:00] LABS: Erythrocyte Sed Rate 14 mm/hour (0-20)
[2024-02-16 05:02] LABS: Blood Urea Nitrogen 29 mg/dl (7-17); Calcium 9.2 mg/dl (8.4-10.2); Carbon Dioxide 25 mmol/L (22-30); Chloride 96 mmol/L (98-107); Estimated Creatinine Clearance 44 ml/min; Glucose 111 mg/dl (70-99); Magnesium 2.3 mg/dl (1.6-2.3); Potassium 3.7 mmol/L (3.5-5.1); Sodium 131 mmol/L (135-145); eGFR > 60.00
[2024-02-16] MEDS: SYNTHROID 75 MCG PO (06:12)
--- NOTE | 2024-02-16 06:19 | PTCARENOTE ---
Pt. had no complaints of CP/SOB/ or nausea overnight. Ambulating in room and halls frequently with RW; gait steady. NSR-ST (120's with ambulation). No BM's.
[2024-02-16 07:54] VITALS: BP 115/69
[2024-02-16 07:56] VITALS: BP 115/69
[2024-02-16 09:22] VITALS: BP 133/58
[2024-02-16] MEDS: VITAMIN D3 (cholecalciferol) 25 MCG PO (09:24)
[2024-02-16] MEDS: LIPITOR 20 MG PO (09:24)
[2024-02-16] MEDS: COLACE 100 MG PO (09:24)
[2024-02-16] MEDS: PROTONIX 40 MG PO (09:24)
[2024-02-16] MEDS: NORVASC 2.5 MG PO (09:24)
[2024-02-16] MEDS: LOW STRENGTH ASPIRIN 81 MG PO (09:24)
[2024-02-16] MEDS: MIRALAX 17 GRAMS PO (09:24)
[2024-02-16 09:25] VITALS: BP 138/58; PULSE 111
[2024-02-16] MEDS: ZESTRIL 20 MG PO (09:25)
[2024-02-16] MEDS: CELEXA 10 MG PO (09:25)
--- NOTE | 2024-02-16 10:24 | W.PN.HOSP.TC ---
Today's Communication/Plan
-
Follow-up echo
Dulcolax suppository
Discharge
Assessment / Plan
Assessment / Plan
Gen-AAOx3, NAD
HEENT-NC, AT, anicteric, clear oral mm
Neck-supple
CV-reg, no M, +S1/S2
Lungs-clear B/L
Abd-soft, NT, ND
Ext-no edema
Musculoskeletal-no cyanosis, clubbing
Skin-warm and dry
Neuro-grossly non-focal
Psych-calm, cooperative
Postoperative constipation -last bowel movement 2 days ago. Dulcolax suppository now. Etiology of constipation was likely multifactorial including medications, limited mobility due to knee surgery, etc. Does have a history of IBS.
Recommend twice daily MiraLAX on discharge, Colace, Senokot. High-fiber diet. Exercise. Discussed with patient and . Follow-up with PCP and GI.
Mild pericardial effusion -noted on CT chest. Repeat echocardiogram completed this morning, await results. Echocardiogram from 02/12 did not reveal an effusion. ESR normal, mild CRP elevation of unclear significance.
Unexplained Sinus Tachycardia -resolved.
-No PE on CT Chest performed on 02/15/24
Elevated troponin -- suspected non-[place] troponin elevation
- Cardiology was consulted on admission, appreciate their evaluation and recommendations
- Repeat an echocardiogram showed normal LV and RV function.
- Continue aspirin, amlodipine, lisinopril, and atorvastatin
Status post Left TKA
- Patient had L TKA at [facility] on 02/09/24.
- Doing very well in regards to pain control / mobility post-op.
- Continue PT / OT.
- Maintain current dressing.
- Discussed patient's case recently with on-call orthopedics Dr. Serrano as well as patient's surgeon Dr. Lee, given patient's possible gastritis/abdominal pain: they said okay to do Aspirin 81 mg BID for DVT prophylaxis
- Try to limit meds that would contribute to GI upset.
Post-Op Blood Loss Anemia -hemoglobin stable.
Leukocytosis -- suspected from recent surgery
- Hgb 11 compared to baseline of around 13.
- Leukocytosis -- persists, checking for pericardial process as above
- Expected ecchymosis of the LLE following recent surgery.
Essential hypertension
- Stable. Continue lisinopril
Hypothyroidism
- Continue current T4 dose.
History of Recurrent Nephrolithiasis
- Most recent episode was in September and require cysto, stent, etc.
- CT today shows no ureteral stones and patient notes that current symptoms are not similar to prior episodes.
DVT Prophylaxis: ASA 81 mg BID. SCDs.
Code Status: Full Code
Dispo -anticipate discharge today pending echo results. Updated at the bedside.
35 minutes spent in discharge process.
Anticipated Discharge: Today
Subjective/Interval History
-
Date of Service: February 16, 2024
Patient seen and examined. Complaining of constipation.
Objective Data
-
Labs:
Laboratory Results
02/16/24
04:17
WBC 14.3 H
Hgb 11.0 L
Hct 31.6 L
Plt Count 367
Sodium 131 L
Potassium 3.7
Chloride 96 L
Carbon Dioxide 25
BUN 29 H
Creatinine 0.9
Glucose 111 H
Calcium 9.2
Vital Signs:
Vital Signs
Temp Pulse Resp BP Pulse Ox
98.2 F 80 16 115/69 97
02/16/24 07:54 02/16/24 09:25 02/16/24 07:54 02/16/24 09:25 02/16/24 08:30
I&O
02/15/24 02/16/24 02/17/24
06:59 06:59 06:59
Intake Total 1440 / 1440 240 / 240
Balance 1440 / 1440 240 / 240
Review of Systems
-
History Source: Patient
All other systems: Reviewed and negative
--- NOTE | 2024-02-16 10:30 | W.DS.TRANS ---
DC Summary - Sales Support Representative
-
Discharge Instructions:
Discharge Diagnosis/Procedures Constipation
Diet Other diet
Additional Diets High-fiber diet
Activity As tolerated
Driving Restrictions No driving
Bathing Restrictions None
Instructions:
Stand-Alone Forms:
Changes to Home Medications: No
Discharge Medications:
DC Medications w/original date entered in [facility]
lisinopril 10 mg tablet 20 mg PO DAILY Blood Pressure 12/25/10
denosumab 60 mg/mL subcutaneous syringe (Prolia) 60 mg SC [id number] osteoporosis 10/07/23
cholecalciferol (vitamin D3) 25 mcg (1,000 unit) tablet (Vitamin D3) 25 mcg PO DAILY Supplement 10/09/23
citalopram 10 mg tablet 10 mg PO DAILY depression/anxiety 10/09/23
atorvastatin 20 mg tablet (Lipitor) 20 mg PO DAILY High Cholesterol 10/12/23
levothyroxine 75 mcg tablet (Synthroid) 75 mcg PO DAILY Thyroid 10/12/23
acetaminophen 500 mg tablet (Tylenol Extra Strength) 1,000 mg PO BID pain 02/12/24
amlodipine 2.5 mg tablet 2.5 mg PO DAILY #14 tabs 02/12/24
aspirin 81 mg chewable tablet 81 mg PO BID #60 tabs 02/12/24
docusate sodium 100 mg capsule (Colace) 100 mg PO DAILY Constipation 02/12/24
oxycodone 5 mg tablet 5 mg PO Q6HPRN PRN severe pain 02/12/24
pantoprazole 40 mg tablet,delayed release 40 mg PO BID #60 tabs 02/12/24
polyethylene glycol 3350 17 gram oral powder packet (HealthyLax) 17 g PO BID #0 ea 02/16/24
Home Medication Changes
Pending Results: No
[2024-02-16] MEDS: DULCOLAX 10 MG RECTAL (10:39)
--- NOTE | 2024-02-16 10:42 | PTCARENOTE ---
patient c/o feeling constipated, ducolax HI given as ordered,
--- NOTE | 2024-02-16 10:45 | PTCARENOTE ---
echo completed at bedside.
[2024-02-16 10:52] LABS: Rheumatoid Agglutinin Less Than 10 IU (<10 IU)
[2024-02-16 11:38] VITALS: BP 134/69
--- NOTE | 2024-02-16 13:20 | PTCARENOTE ---
D/C instructions given to patient and both verbalizes understanding. INT D/C'd, telemetry D/C'd, personal belongings packed and sent home with patient. D/C to home via wc accompanied by staff.
--- NOTE | 2024-02-16 14:43 | CM ---
CM following for DC planning needs.
Met w/ patient at bedside.
Pt. is for DC to home today. Has no concerns or needs at this time. Has transport home.
Plan: HOME, no needs.
[2024-02-17 21:21] LABS: ANA, IgG Reflex to HEp-2 Detected (None Detected)
== END 2024-02-16 13:54 | disposition home or self-care (01) | DRG 392 ==
LOC: IVU 23:55
PROVIDERS: Hospitalist; Nurse Practitioner Family; ADMITTING PHYSICIAN Student in an Organized Health Care Education/Training Program; ATTENDING PHYSICIAN Hospitalist; EMERGENCY PHYSICIAN Emergency Medicine; FAMILY PHYSICIAN Family Medicine; OTHER PHYSICIAN Internal Medicine Cardiovascular Disease
DX: K58.1 Irritable bowel syndrome with constipation (principal); D62 Acute posthemorrhagic anemia; I31.39 Other pericardial effusion (noninflammatory); Z87.891 Personal history of nicotine dependence; I10 Essential (primary) hypertension; E03.9 Hypothyroidism, unspecified; Z96.652 Presence of left artificial knee joint
CPT/HCPCS: 93308; 71275; 74022; 80048; 80053; 83036; 83690; 83735; 84484; 85025; 85027; 85652; 86038; 86140; 86430; 93005; 93970; 96374; 96375; 97110; 97116; 97162; 97166; 99285; Q9950; Q9967

== ENCOUNTER → 2024-06-14 12:02 | Outpatient (REF) | payer MEDICARE, OTHER, SELFPAY | LOC: HWRCS 12:02 | PROVIDERS: ATTENDING PHYSICIAN Internal Medicine Cardiovascular Disease; FAMILY PHYSICIAN Family Medicine | DX: R74.8 Abnormal levels of other serum enzymes (principal); R94.31 Abnormal electrocardiogram [ECG] [EKG] | CPT/HCPCS: 78452; 93017; A9500 ==

== ENCOUNTER → 2025-01-04 11:57 | Outpatient (REF) | payer MEDICARE, OTHER, SELFPAY | LOC: WDC 11:57 | PROVIDERS: ATTENDING PHYSICIAN Family Medicine | DX: Z12.31 Encounter for screening mammogram for malignant neoplasm of breast (principal) | CPT/HCPCS: 77063; 77067 ==

== ENCOUNTER 2025-02-27 16:20 | Emergency (ER) | payer MEDICARE, OTHER, SELFPAY ==
[2025-02-27 16:28] VITALS: BP 177/117
[2025-02-27 16:57] LABS: Hematocrit 41.7 % (37.0-47.0); Hemoglobin 14.1 g/dL (12.0-16.0); Mean Corp Hgb Conc. 33.8 g/dL (33.0-37.0); Mean Corpuscular Volume 89.9 fL (81.0-99.0); Nucleated Red Blood Cells % 0 %; Platelet Count 302 10^3/uL (130-400); Red Cell Dist. Width 12.8 % (11.5-14.5)
[2025-02-27 17:17] LABS: ALT (SGPT) 20 U/L (0-35); AST (SGOT) 25 U/L (14-36); Albumin 4.7 g/dl (3.5-5.0); Alkaline Phosphatase 72 U/L (38-126); Blood Urea Nitrogen 18 mg/dl (7-17); Calcium 10.3 mg/dl (8.4-10.2); Carbon Dioxide 23 mmol/L (22-30); Chloride 102 mmol/L (98-107); Glucose 152 mg/dl (70-99); Potassium 4.1 mmol/L (3.5-5.1); Sodium 135 mmol/L (135-145); Total Protein 7.5 g/dl (6.3-8.2); eGFR > 60.00
[2025-02-27 17:28] LABS: Troponin I < 0.012 ng/ml
[2025-02-27 17:59] VITALS: BMI 27.4
[2025-02-27 18:00] VITALS: BP 158/105
--- NOTE | 2025-02-27 18:17 | ED.GENMED ---
History of Present Illness
General
Chief Complaint: Abdominal Pain
Source: patient
Time Seen by Provider: 02/27/25 17:59
History of Present Illness
History of Present Illness:
79-year-old female presents emergency room complaining of abdominal pain nausea vomiting. Symptoms began yesterday morning. She has had multiple episode of vomiting. She states she has discomfort in her epigastric area which is significant. The
nausea is also significant. No 1 in the home is sick other than her. Patient has not had any diarrhea. She denies any recent alcohol use. She denies any fever or chills. She has been taking ibuprofen for her symptoms which has not really helped.
Past History
Past History
ED Past Medical History: HTN, Hypothyroidism and Other (Kidney stones, Diverticulitis, IBS, UTI, )
ED Past Surgical History: Gynecological (Hysterectomy), Orthopedic (left knee replacement, ), Urological (Lithotripsy X 2) and Other (Salivary gland removed, Mastoid surgery)
Social History
Tobacco: Former smoker
Alcohol: Occasional
Drug: None
Personal:
Living: with family
Employment: Retired
Family History
Family History: Other (Noncontributory)
Phy Exam
Physical Exam
Physical Exam:
General: Awake, Alert, Oriented X3. Appears uncomfortable but no acute distress
Vitals: unremarkable
Head: Atraumatic
Eyes: Pupils equal, EOMI
Throat: Airway intact, no exudates
Neck: Trachea midline
Lungs: Clear and equal b/l
Heart: Regular rate, no murmurs
Abd: Soft, mild epigastric tenderness to palpation, No pulsatile mass
Neuro: Nonfocal
Skin: Warm, dry, no rash
Extremities: pulses equal b/l, no edema
Course
Orders/Labs/Results
Orders:
Orders
02/27/25 16:31
Electrocardiogram (*1) Urgent
Reason for Study: Abdominal Pain
EKG- Treatment ONCE
02/27/25 16:42
CMP [Comprehensive Metabolic Panel] Urgent
Complete Blood Count/With Diff Urgent
Lipase Urgent
Comment: ADD ON
Troponin I Urgent
02/27/25 18:16
Add On- LAB Urgent
Tests Added?: lipase
0.9% Sodium Chloride 1000 ml [Nss] 1,000 ml IV BOLUS
HYDROmorphone [Dilaudid] 0.5 mg IV NOW STA
Pantoprazole [Protonix IV] 40 mg IV NOW STA
US Abdomen Complete/Upper Urgent
Comment:
Reason For Exam: epigastric pain
02/27/25 20:21
Urinalysis Reflex To Culture Urgent
Date Specimen was Collected: 02/27/25
Time Specimen was Collected: 18:20
Urine Microscopic Reflex Cult Urgent
Abnormal Lab Results
02/27/25 02/27/25
16:42 20:21
Absolute Neuts (auto) 8.6 H 10^3/uL
(1.4-6.5)
Absolute Lymphs (auto) 0.7 L 10^3/uL
(1.2-3.4)
Neutrophils % 90.9 H %
(42.2-75.2)
Lymphocytes % 6.9 L %
(20.5-51.1)
Monocytes % 1.5 L %
(1.7-9.3)
BUN 18 H mg/dl
(7-17)
Glucose 152 H mg/dl
(70-99)
Calcium 10.3 H mg/dl
(8.4-10.2)
Urine Ketones 3+ A
(Negative)
Ur Occult Blood Reflex 3+ A
(Negative)
Urine RBC 7-10 A /HPF
(0-2)
Urine Glucose 1+ A
(Negative)
Urine Albumin (Reflex) 2+ A
(Neg - Trace)
02/27/25 16:42
02/27/25 16:42
Vital Signs
Initial and Last Documented VS:
Initial Vital Signs
Temp Pulse Resp BP Pulse Ox
98.4 F 87 18 177/117 99
02/27/25 16:28 02/27/25 16:28 02/27/25 16:28 02/27/25 16:28 02/27/25 16:28
Last Documented Vital Signs
Temp Pulse Resp BP Pulse Ox
98.4 F 90 18 158/105 96
02/27/25 16:28 02/27/25 20:30 02/27/25 20:30 02/27/25 18:00 02/27/25 20:30
MDM/Problems Addressed
Differential Diagnosis Includes:
Gastritis, viral GI illness, cholecystitis, cholelithiasis, pancreatitis
MDM/Problems Addressed:
Patient presents with upper abdominal pain nausea and vomiting. She felt much better after IV fluids, antiemetics and a small dose of Dilaudid. Symptoms are essentially gone. Her repeat abdominal exam is benign. Labs and ultrasound are
essentially unremarkable. Urinalysis not consistent with UTI. Given patient is feeling better I think she stable for discharge. Follow-up with her primary care provider as an outpatient.
*Radiology
Radiology exam reviewed: radiology read reviewed
*Pulse Oximetry
SaO2: 99
Oxygen Mode of Delivery: Room air
Patient hypoxic: no
*EKG
Interpreted by ED Provider?: Yes
Heart Rate: 81
Rate: normal
Rhythm: sinus
[place]: normal axis
Interval: normal interval
QRS Pattern: normal QRS
Ischemia: non-specific ST changes
*Geotechnician Interpretation
Rate: normal
Interpretation: normal
Rhythm: sinus
*Critical Care Note
Total Time (30-74mins, 75-104mins- exclusive of procedures): Not Applicable
ED Attending Note
-
Portions of this chart may have been created with voice recognition software.� Occasional wrong word or��sound alike� substitutions may have occurred due to the inherent limitations of voice recognition software.
Discharge Plan
Departure
Patient Disposition: Home (Routine Discharge)
Date of Disposition: 02/27/25
Time of Disposition: 20:18
Patient with high blood pressure during this ER visit?: Yes
Condition: Good
Discharge Problem:
Abdominal pain, Nausea & vomiting
Instructions: Nausea and Vomiting, Adult (DC), Abdominal Pain
Prescriptions:
New
ondansetron 4 mg tablet,disintegrating
4 mg PO TID PRN (Reason: nausea and vomiting) Qty: 12 0RF
No Action
lisinopril 10 MG tablet
20 mg PO DAILY
Prolia 60 mg/mL Syringe
60 mg SC [id number]
citalopram 10 mg Tablet
10 mg PO DAILY
cholecalciferol (vitamin D3) [Vitamin D3] 25 mcg (1,000 unit) Tablet
25 mcg PO DAILY
atorvastatin [Lipitor] 20 mg Tablet
20 mg PO DAILY
levothyroxine [Synthroid] 75 mcg Tablet
75 mcg PO DAILY
oxycodone 5 mg Tablet
5 mg PO Q6HPRN PRN (Reason: severe pain)
acetaminophen [Tylenol Extra Strength] 500 mg Tablet
1,000 mg PO BID
docusate sodium [Colace] 100 mg Capsule
100 mg PO DAILY
amlodipine 2.5 mg tablet
2.5 mg PO DAILY Qty: 14 1RF
aspirin 81 mg tablet,chewable
81 mg PO BID Qty: 60 0RF
pantoprazole 40 mg tablet,delayed release (DR/EC)
40 mg PO BID Qty: 60 0RF
polyethylene glycol 3350 [HealthyLax] 17 gram Powder In Packet
17 g PO BID Qty: 0 0RF
Referrals:
Montana Graves MD [Family Provider, Family Practice]
Interventions
Interventions:
*Risk Screen - Suicide Last Done: 02/27/25 16:28
*General Assessment Last Done: 02/27/25 17:59
*Neglect/Abuse Screening Last Done: 02/27/25 16:28
*ED- Fall Risk Assessment Last Done: 02/27/25 17:59
*ED COVID-19 Vaccine History Last Done: 02/27/25 17:59
*ED Influenza Vaccine History Last Done: 02/27/25 17:59
*Nursing Disposition Last Done: 02/27/25 20:42
PF-Akfoiz-Rwczkagxgq Assessment Last Done: 02/27/25 17:59
Discharge Date and Time
Discharge Date/Time: 02/27/25 20:42
Print Language: AMERICAN
[2025-02-27] MEDS: PROTONIX IV 40 MG IV (18:22)
[2025-02-27] MEDS: DILAUDID 0.5 MG IV (18:22)
[2025-02-27] MEDS: NSS 1000 IV (18:22)
[2025-02-27 18:48] LABS: Lipase 61 U/L (23-300)
[2025-02-27 20:37] LABS: Urine Character Clear (Clear)
[2025-02-27 20:54] LABS: Urine White Cell 0-2 /HPF (0-5)
== END 2025-02-27 20:42 | disposition home or self-care (01) ==
LOC: EMR 16:20
PROVIDERS: Emergency Medicine; EMERGENCY PHYSICIAN Emergency Medicine; FAMILY PHYSICIAN Family Medicine
DX: R10.13 Epigastric pain (principal); R11.2 Nausea with vomiting, unspecified; I10 Essential (primary) hypertension; E03.9 Hypothyroidism, unspecified; K58.9 Irritable bowel syndrome, unspecified; Z79.82 Long term (current) use of aspirin; Z87.891 Personal history of nicotine dependence; Z96.652 Presence of left artificial knee joint
CPT/HCPCS: 99284; 96374; 96375; 76700; 80053; 81003; 81015; 83690; 84484; 85025; 93005

== ENCOUNTER → 2025-03-14 09:54 | Outpatient (REF) | payer MEDICARE, OTHER, SELFPAY ==
[2025-03-14 11:57] LABS: ALT (SGPT) 14 U/L (0-35); AST (SGOT) 21 U/L (14-36); Albumin 4.1 g/dl (3.5-5.0); Alkaline Phosphatase 57 U/L (38-126); Blood Urea Nitrogen 17 mg/dl (7-17); Calcium 9.5 mg/dl (8.4-10.2); Carbon Dioxide 28 mmol/L (22-30); Chloride 105 mmol/L (98-107); Glucose 96 mg/dl (70-99); Potassium 4.9 mmol/L (3.5-5.1); Sodium 136 mmol/L (135-145); Total Protein 6.7 g/dl (6.3-8.2); eGFR > 60.00
[2025-03-14 12:24] LABS: Vitamin D, 25-OH*** 45.5 ng/mL (30-80)
== END ==
LOC: REG 09:54
PROVIDERS: ATTENDING PHYSICIAN Internal Medicine; FAMILY PHYSICIAN Family Medicine
DX: M54.50 Low back pain, unspecified (principal); M81.0 Age-related osteoporosis without current pathological fracture
CPT/HCPCS: 36415; 72114; 80053; 82306